=== PATIENT | male | born 1945 | race Caucasian/White ===

== ENCOUNTER → 2023-07-22 15:07 | Outpatient (REF) | payer MEDICARE, BC, SELFPAY ==
[2023-07-22 15:50] LABS: INR 4.71; PT 44.5 Sec (11.4-14.6)
== END ==
LOC: REG 15:07
PROVIDERS: ATTENDING PHYSICIAN Internal Medicine; FAMILY PHYSICIAN Family Medicine
DX: I48.0 Paroxysmal atrial fibrillation (principal)
CPT/HCPCS: 36415; 85610

== ENCOUNTER → 2023-10-18 12:04 | Outpatient (REF) | payer MEDICARE, BC, SELFPAY ==
[2023-10-18 13:50] LABS: INR 1.72
[2023-10-18 14:16] LABS: Protein/creatinine Ratio 0.5; Urine Protein 89 mg/dl
[2023-10-18 14:30] LABS: Albumin 4.2 g/dl (3.5-5.0); Blood Urea Nitrogen 48 mg/dl (9-20); Calcium 9.7 mg/dl (8.4-10.2); Carbon Dioxide 25 mmol/L (22-30); Chloride 104 mmol/L (98-107); Glucose 94 mg/dl (70-99); Phosphorus 3.1 mg/dl (2.5-4.5); Potassium 4.8 mmol/L (3.5-5.1); Sodium 137 mmol/L (135-145); eGFR 36.11
== END ==
LOC: REG 12:04
PROVIDERS: ATTENDING PHYSICIAN Internal Medicine; FAMILY PHYSICIAN Family Medicine; OTHER PHYSICIAN Internal Medicine
DX: I48.0 Paroxysmal atrial fibrillation (principal); I10 Essential (primary) hypertension; N17.9 Acute kidney failure, unspecified; E78.2 Mixed hyperlipidemia
CPT/HCPCS: 36415; 80069; 82570; 84156; 85610

== ENCOUNTER → 2023-10-29 12:46 | Outpatient (REF) | payer MEDICARE, BC, SELFPAY ==
[2023-10-29 14:41] LABS: INR 3.13; PT 32.1 Sec (11.4-14.6)
[2023-10-29 14:49] LABS: Albumin 4.3 g/dl (3.5-5.0); Blood Urea Nitrogen 35 mg/dl (9-20); Calcium 9.8 mg/dl (8.4-10.2); Carbon Dioxide 25 mmol/L (22-30); Chloride 106 mmol/L (98-107); Glucose 94 mg/dl (70-99); Phosphorus 3.4 mg/dl (2.5-4.5); Potassium 4.7 mmol/L (3.5-5.1); Sodium 142 mmol/L (135-145); eGFR 44.38
[2023-10-29 15:55] LABS: Protein/creatinine Ratio 0.5; Urine Protein 68 mg/dl
== END ==
LOC: RAD 12:46
PROVIDERS: ATTENDING PHYSICIAN Physician Assistant; OTHER PHYSICIAN Internal Medicine
DX: I73.9 Peripheral vascular disease, unspecified (principal); I65.22 Occlusion and stenosis of left carotid artery; I48.0 Paroxysmal atrial fibrillation; I10 Essential (primary) hypertension; E78.2 Mixed hyperlipidemia; E78.5 Hyperlipidemia, unspecified; N17.9 Acute kidney failure, unspecified; I21.3 ST elevation (STEMI) myocardial infarction of unspecified site
CPT/HCPCS: 36415; 80069; 82570; 82784; 83521; 84155; 84156; 84165; 85610; 86334; 93880; 93922; 93925

== ENCOUNTER → 2023-11-04 11:48 | Outpatient (REF) | payer MEDICARE, BC, SELFPAY ==
[2023-11-04 12:48] LABS: INR 4.55; PT 43.3 Sec (11.4-14.6)
== END ==
LOC: RAD 11:48
PROVIDERS: ATTENDING PHYSICIAN Internal Medicine; FAMILY PHYSICIAN Family Medicine
DX: I48.0 Paroxysmal atrial fibrillation (principal)
CPT/HCPCS: 36415; 85610

== ENCOUNTER → 2023-12-25 12:16 | Outpatient (REF) | payer MEDICARE, BC, SELFPAY ==
[2023-12-25 13:02] LABS: % Basophils 0.8 % (0-2); % Eosinophils 3.5 % (0-6); % Immature Granulocytes 0.3 % (0-0.5); % Lymphocytes 32.2 % (20.5-51.1); % Monocytes 11.8 % (1.7-9.3); % Neutrophils 51.4 % (42.2-75.2); Absolute Eosinophils 0.1 10^3/uL (0-0.7); Absolute Lymphocytes 1.3 10^3/uL (1.2-3.4); Absolute Monocytes 0.5 10^3/uL (0.1-0.6); Hematocrit 38.4 % (39.0-52.0); Hemoglobin 13.2 g/dL (13.0-18.0); Mean Corp Hgb Conc. 34.4 g/dL (33.0-37.0); Mean Corpuscular Hgb 31.3 pg (27.0-31.0); Mean Platelet Volume 10.8 fL (7.4-10.4); Nucleated Red Blood Cells % 0 % (-); Platelet Count 135 10^3/uL (130-400); Red Blood Cell Count 4.22 10^6/uL (4.70-6.10); Red Cell Dist. Width 13.1 % (11.5-14.5)
[2023-12-25 13:07] LABS: INR 1.68
[2023-12-25 13:13] LABS: ALT (SGPT) 20 U/L (0-50); AST (SGOT) 37 U/L (17-59); Albumin 4.2 g/dl (3.5-5.0); Alkaline Phosphatase 92 U/L (38-126); Blood Urea Nitrogen 43 mg/dl (9-20); Calcium 9.5 mg/dl (8.4-10.2); Carbon Dioxide 25 mmol/L (22-30); Chloride 107 mmol/L (98-107); Glucose 150 mg/dl (70-99); Potassium 4.4 mmol/L (3.5-5.1); Sodium 142 mmol/L (135-145); Total Bilirubin 0.7 mg/dl (0.2-1.3); Total Protein 7.2 g/dl (6.3-8.2); eGFR 33.95
[2023-12-25 14:10] LABS: Glycohemoglobin (HgbA1c) 6.4 % (4.0-5.6)
== END ==
LOC: RAD 12:16
PROVIDERS: ATTENDING PHYSICIAN Internal Medicine; FAMILY PHYSICIAN Family Medicine
DX: M19.072 Primary osteoarthritis, left ankle and foot (principal); M14.672 Charcot's joint, left ankle and foot; N18.32 Chronic kidney disease, stage 3b; E11.42 Type 2 diabetes mellitus with diabetic polyneuropathy; I10 Essential (primary) hypertension; I48.0 Paroxysmal atrial fibrillation
CPT/HCPCS: 36415; 73610; 73630; 80053; 83036; 85025; 85610

== ENCOUNTER → 2024-01-03 10:19 | Outpatient (REF) | payer MEDICARE, BC, SELFPAY ==
[2024-01-03 13:09] LABS: INR 2.11; PT 23.5 Sec (11.4-14.6)
== END ==
LOC: REG 10:19
PROVIDERS: ATTENDING PHYSICIAN Internal Medicine; FAMILY PHYSICIAN Family Medicine
DX: I48.0 Paroxysmal atrial fibrillation (principal)
CPT/HCPCS: 36415; 85610

== ENCOUNTER → 2024-01-14 10:55 | Outpatient (REF) | payer MEDICARE, BC, SELFPAY ==
[2024-01-14 12:02] LABS: Urine Albumin 1+ (Neg - Trace); Urine Bilirubin Negative (Negative); Urine Character Clear (Clear); Urine Color Yellow; Urine Glucose Negative (Negative); Urine Ketone Trace (Negative); Urine Leukocyte 2+ (Negative); Urine Nitrite Negative (Negative); Urine Occult Blood Trace (Negative); Urine Urobilinogen Negative (Neg - 1+)
[2024-01-14 12:44] LABS: Protein/creatinine Ratio 0.2; Urine Protein 37 mg/dl; Urine Sodium 137 mmol/L (30-90)
[2024-01-14 13:10] LABS: Urine Mucus Few
[2024-01-14 13:12] LABS: Urine Bacteria Few (Negative); Urine Red Blood Cell 0-2 /HPF (0-2)
[2024-01-14 14:04] LABS: INR 4.18; PT 40.5 Sec (11.4-14.6)
== END ==
LOC: REG 10:55
PROVIDERS: ATTENDING PHYSICIAN Internal Medicine; FAMILY PHYSICIAN Family Medicine; REFERRING PHYSICIAN Internal Medicine
DX: I48.0 Paroxysmal atrial fibrillation (principal); I10 Essential (primary) hypertension; E78.5 Hyperlipidemia, unspecified; E78.2 Mixed hyperlipidemia
CPT/HCPCS: 36415; 81003; 81015; 82570; 84156; 84300; 85610

== ENCOUNTER → 2024-01-21 12:07 | Outpatient (REF) | payer MEDICARE, BC, SELFPAY ==
[2024-01-21 16:18] LABS: INR 2.88; PT 30.1 Sec (11.4-14.6)
== END ==
LOC: REG 12:07
PROVIDERS: ATTENDING PHYSICIAN Internal Medicine; FAMILY PHYSICIAN Family Medicine
DX: I48.0 Paroxysmal atrial fibrillation (principal)
CPT/HCPCS: 36415; 85610

== ENCOUNTER → 2024-03-02 14:35 | Outpatient (REF) | payer MEDICARE, BC, SELFPAY ==
[2024-03-02 15:22] LABS: INR 2.89; PT 30.2 Sec (11.4-14.6)
== END ==
LOC: REG 14:35
PROVIDERS: ATTENDING PHYSICIAN Internal Medicine; FAMILY PHYSICIAN Family Medicine
DX: I48.0 Paroxysmal atrial fibrillation (principal)
CPT/HCPCS: 36415; 85610

== ENCOUNTER → 2024-03-16 16:32 | Outpatient (REF) | payer MEDICARE, BC, SELFPAY ==
[2024-03-16 17:53] LABS: INR 3.93; PT 38.5 Sec (11.4-14.6)
== END ==
LOC: REG 16:32
PROVIDERS: ATTENDING PHYSICIAN Internal Medicine
DX: I48.0 Paroxysmal atrial fibrillation (principal)
CPT/HCPCS: 36415; 85610

== ENCOUNTER → 2024-03-30 14:22 | Outpatient (REF) | payer MEDICARE, BC, SELFPAY ==
[2024-03-30 15:06] LABS: % Basophils 0.8 % (0-2); % Eosinophils 4.6 % (0-6); % Immature Granulocytes 0.5 % (0-0.5); % Lymphocytes 30.4 % (20.5-51.1); % Monocytes 11.9 % (1.7-9.3); % Neutrophils 51.8 % (42.2-75.2); Absolute Eosinophils 0.2 10^3/uL (0-0.7); Absolute Lymphocytes 1.2 10^3/uL (1.2-3.4); Absolute Monocytes 0.5 10^3/uL (0.1-0.6); Absolute Neutrophils 2.1 10^3/uL (1.4-6.5); Hematocrit 38.3 % (39.0-52.0); Hemoglobin 12.9 g/dL (13.0-18.0); Mean Corp Hgb Conc. 33.7 g/dL (33.0-37.0); Mean Corpuscular Hgb 30.5 pg (27.0-31.0); Mean Corpuscular Volume 90.5 fL (80.0-94.0); Mean Platelet Volume 10.8 fL (7.4-10.4); Nucleated Red Blood Cells % 0 % (-); Platelet Count 141 10^3/uL (130-400); Red Blood Cell Count 4.23 10^6/uL (4.70-6.10); Red Cell Dist. Width 13.8 % (11.5-14.5)
[2024-03-30 15:13] LABS: INR 2.12; PT 23.6 Sec (11.4-14.6)
[2024-03-30 15:25] LABS: ALT (SGPT) 22 U/L (0-50); AST (SGOT) 33 U/L (17-59); Albumin 4.4 g/dl (3.5-5.0); Alkaline Phosphatase 96 U/L (38-126); Blood Urea Nitrogen 43 mg/dl (9-20); Calcium 9.7 mg/dl (8.4-10.2); Carbon Dioxide 26 mmol/L (22-30); Chloride 103 mmol/L (98-107); Glucose 142 mg/dl (70-99); Potassium 4.5 mmol/L (3.5-5.1); Sodium 145 mmol/L (135-145); Total Bilirubin 0.6 mg/dl (0.2-1.3); Total Protein 7.7 g/dl (6.3-8.2); eGFR 41.26
[2024-04-01 22:14] LABS: Beta-2-Microglobulin 4.8 mg/L (<=3.0)
== END ==
LOC: REG 14:22
PROVIDERS: ATTENDING PHYSICIAN Internal Medicine Hematology & Oncology; FAMILY PHYSICIAN Internal Medicine
DX: D47.2 Monoclonal gammopathy (principal); I48.0 Paroxysmal atrial fibrillation
CPT/HCPCS: 36415; 80053; 82232; 82784; 83521; 84155; 84156; 84165; 85025; 85610; 86334; 86335

== ENCOUNTER → 2024-04-14 15:10 | Outpatient (REF) | payer MEDICARE, BC, SELFPAY ==
[2024-04-14 16:45] LABS: INR 2.42; PT 26.2 Sec (11.4-14.6)
== END ==
LOC: REG 15:10
PROVIDERS: ATTENDING PHYSICIAN Internal Medicine; FAMILY PHYSICIAN Family Medicine
DX: I48.0 Paroxysmal atrial fibrillation (principal)
CPT/HCPCS: 36415; 85610

== ENCOUNTER → 2024-04-21 13:34 | Outpatient (REF) | payer MEDICARE, BC, SELFPAY ==
[2024-04-21 14:35] LABS: INR 3.05; PT 31.5 Sec (11.4-14.6)
== END ==
LOC: REG 13:34
PROVIDERS: ATTENDING PHYSICIAN Internal Medicine; FAMILY PHYSICIAN Family Medicine
DX: I48.0 Paroxysmal atrial fibrillation (principal)
CPT/HCPCS: 36415; 85610

== ENCOUNTER → 2024-04-30 16:15 | Outpatient (REF) | payer MEDICARE, BC, SELFPAY ==
[2024-04-30 17:56] LABS: PT 27.4 Sec (11.4-14.6)
== END ==
LOC: REG 16:15
PROVIDERS: ATTENDING PHYSICIAN Internal Medicine; FAMILY PHYSICIAN Family Medicine
DX: I48.0 Paroxysmal atrial fibrillation (principal)
CPT/HCPCS: 36415; 85610

== ENCOUNTER 2024-06-04 15:25 | Emergency (ER) | payer MEDICARE, BC, SELFPAY ==
[2024-06-04 15:54] VITALS: BP 156/80
--- NOTE | 2024-06-04 16:07 | ED.GENMED ---
ED Provider Triage
<Halina Prabhakar PA-C - Last Filed: 06/04/24 18:36>
-
Patient seen by provider in Triage?: Seen in Triage
Attestation: A medical screening examination has been initiated by a qualified medical provider. Based on the assessment performed at this time, it has been determined that an emergent medical condition may exist and the patient has been informed
that further medical evaluation and possible additional diagnostic testing may be needed.
HPI: 79yoM started having vomiting and headache last night. Now only able to see shadows from L eye, was seeing okay out of this eye yesterday. Started to R eye visual disturbance Saturday. Seen by eye doctor 2 days ago and told he had a hemorrhage.
Scheduled to see retinal specialist tomorrow. Currently on Coumadin.
GENERAL: Alert , in no apparent distress
EYE: No visual abnormalities.
NECK: Trachea midline
ENT: No visible abnormalities.
LUNGS: No acute respiratory distress
NEUROLOGICAL: Alert and oriented
SKIN: Skin intact. No visible changes.
MUSCULOSKELETAL: Moving extremities normally
PSYCH: Normal and appropriate interaction.
This is a medical evaluation conducted in person to initiate diagnostic evaluation and provide initial therapeutics. Please see further documentation by the treating clinician.
Patient appears uncomfortable. CBC, CMP, coags, and CT head ordered. Patient brought immediately to exam room.
History of Present Illness
<Halina Prabhakar PA-C - Last Filed: 06/04/24 18:36>
General
Chief Complaint: Visual Problem
Time Seen by Provider: 06/04/24 16:18
<Alok Montiel DO - Last Filed: 06/04/24 19:44>
General
Source: patient and spouse
History of Present Illness
History of Present Illness:
79-year-old male presents to the emergency room complaining of almost complete loss of vision in both eyes. Patient states that he began having difficulty seeing from his right eye last week. He was found to have hemorrhage' of the right eye. He
was seen by his brush filler hand who started him on some drops and instructed him to return to the office in a few days which would be tomorrow. At that time he felt like his left eye vision was at its baseline. Patient began having decreased
vision in his left eye today. He noted this when he awoke from sleep. Vision has not improved. He has developed nausea and vomiting. He denies any trauma to the left eye. Patient states he does have history of glaucoma which is primarily
affected his left eye.
Past History
<Halina Prabhakar PA-C - Last Filed: 06/04/24 18:36>
Past History
ED Past Medical History: Arrthythmia, CAD, Hypercholesterolemia, IDDM and [place]
ED Past Surgical History: Cardiac (CABG)
Social History
Tobacco: Non-smoker
Alcohol: Occasional
Drug: None
Personal:
Living: with family
Phy Exam
<Alok Montiel DO - Last Filed: 06/04/24 19:44>
Physical Exam
Physical Exam:
General: Awake, Alert, Oriented X3. Patient appears uncomfortable
Vitals: Moderately hypertensive
Head: Atraumatic
Eyes: Right eye shows pupils to be about 3 mm and slightly reactive. There is a hyphema noted in the anterior chamber with the remaining of the anterior chamber appearing cloudy. Intraocular pressure by Keith-Pen noted to be 54. Confirmed with
second set of measurements. Left eye exam shows a very cloudy anterior chamber with a sluggishly reactive pupil. Extra movement intact both eyes.
Throat: Airway intact, no exudates
Neck: Trachea midline
Lungs: Clear and equal b/l
Heart: Regular rate, no murmurs
Neuro: Nonfocal
Skin: Warm, dry, no rash
Extremities: pulses equal b/l, no edema
Course
<Halina Prabhakar PA-C - Last Filed: 06/04/24 18:36>
Orders/Labs/Results
Orders:
Orders
06/04/24 16:24
Complete Blood Count/With Diff Urgent
Comprehensive Metabolic Panel Urgent
Prothrombin Time Urgent
06/04/24 17:09
Acetazolamide [Diamox] 500 mg PO NOW STA
06/04/24 17:12
Ondansetron Injectable [Zofran] 4 mg IV NOW STA
Abnormal Lab Results
06/04/24
16:24
RBC 4.26 L 10^6/uL
(4.70-6.10)
Hct 38.9 L %
(39.0-52.0)
MCH 31.2 H pg
(27.0-31.0)
MPV 10.5 H fL
(7.4-10.4)
Absolute Lymphs (auto) 0.7 L 10^3/uL
(1.2-3.4)
Immature Gran % 0.8 H %
(0-0.5)
Neutrophils % 78.1 H %
(42.2-75.2)
Lymphocytes % 14.5 L %
(20.5-51.1)
PT 21.0 H Sec
(11.4-14.6)
BUN 37 H mg/dl
(9-20)
Creatinine 1.4 H mg/dL
(0.7-1.3)
Glucose 168 H mg/dl
(70-99)
06/04/24 16:24
06/04/24 16:24
Vital Signs
Initial and Last Documented VS:
Initial Vital Signs
Pulse Resp BP Pulse Ox
63 20 156/80 100
06/04/24 15:54 06/04/24 15:54 06/04/24 15:54 06/04/24 15:54
Last Documented Vital Signs
Pulse Resp BP Pulse Ox
79 23 172/75 98
06/04/24 17:00 06/04/24 17:00 06/04/24 16:19 06/04/24 17:00
<Alok Montiel DO - Last Filed: 06/04/24 19:44>
Orders/Labs/Results
Orders:
Orders
06/04/24 16:24
Complete Blood Count/With Diff Urgent
Comprehensive Metabolic Panel Urgent
Prothrombin Time Urgent
06/04/24 17:09
Acetazolamide [Diamox] 500 mg PO NOW STA
06/04/24 17:12
Ondansetron Injectable [Zofran] 4 mg IV NOW STA
Abnormal Lab Results
06/04/24
16:24
RBC 4.26 L 10^6/uL
(4.70-6.10)
Hct 38.9 L %
(39.0-52.0)
MCH 31.2 H pg
(27.0-31.0)
MPV 10.5 H fL
(7.4-10.4)
Absolute Lymphs (auto) 0.7 L 10^3/uL
(1.2-3.4)
Immature Gran % 0.8 H %
(0-0.5)
Neutrophils % 78.1 H %
(42.2-75.2)
Lymphocytes % 14.5 L %
(20.5-51.1)
PT 21.0 H Sec
(11.4-14.6)
BUN 37 H mg/dl
(9-20)
Creatinine 1.4 H mg/dL
(0.7-1.3)
Glucose 168 H mg/dl
(70-99)
06/04/24 16:24
06/04/24 16:24
Vital Signs
Initial and Last Documented VS:
Initial Vital Signs
Pulse Resp BP Pulse Ox
63 20 156/80 100
06/04/24 15:54 06/04/24 15:54 06/04/24 15:54 06/04/24 15:54
Last Documented Vital Signs
Pulse Resp BP Pulse Ox
79 23 172/75 98
06/04/24 17:00 06/04/24 17:00 06/04/24 16:19 06/04/24 17:00
<Alok Montiel, DO - Last Filed: 06/04/24 19:44>
MDM/Problems Addressed
Differential Diagnosis Includes:
Bilateral vitreous hemorrhage, acute glaucoma, viral conjunctivitis
MDM/Problems Addressed:
Patient presents with significant vision loss, nausea and vomiting. Hyphema noted on the right eye. I do not appreciate a hyphema of the left eye. Both anterior chambers have significant cells and flare. Intraocular pressures are markedly
elevated. Immediately contacted Dr. Courtney who is on-call for ophthalmology. He has weeks and the patient right to his office where he is better resources to handle this. Patient's will take him directly to the ophthalmology office. I was
planning to give the patient a dose of Diamox with Dr. Fierro has the medication in the office and would prefer we immediately discharge him to be seen in his office.
<Alok Montiel, DO - Last Filed: 06/04/24 19:44>
*Pulse Oximetry
Patient hypoxic: no
*Critical Care Note
Total Time (30-74mins, 75-104mins- exclusive of procedures): 30 min
comment:
Critical care statement: A total of 30 minutes of critical care time was provided for this patient. This includes management of unstable vital signs, evaluation of the patient at bedside, reviewing the patient's pertinent medical records, discussion
with consultants, review of old EKGs and review of pertinent medical records. This time with separate from time utilized to perform the aforementioned documented procedures
ED Attending Note
<Halina Prabhakar PA-C - Last Filed: 06/04/24 18:36>
-
Portions of this chart may have been created with voice recognition software.� Occasional wrong word or��sound alike� substitutions may have occurred due to the inherent limitations of voice recognition software.
Discharge Plan
Departure
Patient Disposition: Home (Routine Discharge)
Patient with high blood pressure during this ER visit?: Yes
Condition: Fair
Discharge Problem:
Acute glaucoma of both eyes
Instructions: Angle-closure glaucoma, BLOOD PRESSURE
Prescriptions:
No Action
metoprolol succinate 50 MG tablet extended release 24 hr
50 mg PO HS
atorvastatin [Lipitor] 40 MG tablet
40 mg PO HS
warfarin [Jantoven] 5 MG tablet
5 mg PO SUMOTUWEFRSA
Patient Comments:
HS
torsemide 20 mg Tablet
20 mg PO DAILY
warfarin 2.5 mg Tablet
2.5 mg PO TH
aspirin 81 mg Tablet,Delayed Release (Dr/Ec)
81 mg PO DAILY
potassium chloride 20 mEq Tablet Extended Release
20 meq PO DAILY
Referrals:
Sarabjit Fierro MD [Active] -
Madi Hanks MD [Family Provider] -
Activity Restrictions/Additional Instructions:
Go directly to Dr. Fierro's office.
Interventions
Interventions:
*Risk Screen - Suicide Last Done: 06/04/24 15:59
*General Assessment Last Done: 06/04/24 15:59
*Neglect/Abuse Screening Last Done: 06/04/24 15:59
*ED COVID-19 Vaccine History Last Done: 06/04/24 15:59
*Nursing Disposition Last Done: 06/04/24 17:31
ED- Neurological Assessment Last Done: 06/04/24 17:30
ED-EENT Assessment Last Done: 06/04/24 17:30
Discharge Date and Time
Discharge Date/Time: 06/04/24 17:31
Print Language: INDONESIAN
[2024-06-04 16:15] VITALS: BMI 24.2
[2024-06-04 16:19] VITALS: BP 172/75
[2024-06-04 16:48] LABS: % Basophils 0.2 % (0-2); % Immature Granulocytes 0.8 % (0-0.5); % Lymphocytes 14.5 % (20.5-51.1); % Monocytes 6.4 % (1.7-9.3); % Neutrophils 78.1 % (42.2-75.2); Absolute Lymphocytes 0.7 10^3/uL (1.2-3.4); Absolute Monocytes 0.3 10^3/uL (0.1-0.6); Hematocrit 38.9 % (39.0-52.0); Hemoglobin 13.3 g/dL (13.0-18.0); INR 1.76; Mean Corp Hgb Conc. 34.2 g/dL (33.0-37.0); Mean Corpuscular Hgb 31.2 pg (27.0-31.0); Mean Corpuscular Volume 91.3 fL (80.0-94.0); Mean Platelet Volume 10.5 fL (7.4-10.4); Nucleated Red Blood Cells % 0 % (-); Platelet Count 140 10^3/uL (130-400); Red Blood Cell Count 4.26 10^6/uL (4.70-6.10); Red Cell Dist. Width 13.2 % (11.5-14.5); White Blood Cell Count 5.1 10^3/uL (4.8-10.8)
[2024-06-04 16:51] LABS: ALT (SGPT) 25 U/L (0-50); AST (SGOT) 37 U/L (17-59); Albumin 4.5 g/dl (3.5-5.0); Alkaline Phosphatase 117 U/L (38-126); Blood Urea Nitrogen 37 mg/dl (9-20); Calcium 9.8 mg/dl (8.4-10.2); Carbon Dioxide 28 mmol/L (22-30); Chloride 99 mmol/L (98-107); Estimated Creatinine Clearance 50 ml/min; Glucose 168 mg/dl (70-99); Potassium 4.6 mmol/L (3.5-5.1); Sodium 136 mmol/L (135-145); Total Bilirubin 1.1 mg/dl (0.2-1.3); Total Protein 8.1 g/dl (6.3-8.2); eGFR 51.77
[2024-06-04] MEDS: ZOFRAN 4 MG IV (17:14)
== END 2024-06-04 17:31 | disposition home or self-care (01) ==
LOC: EMR 15:25
PROVIDERS: EMERGENCY PHYSICIAN Emergency Medicine; FAMILY PHYSICIAN Family Medicine
DX: H40.9 Unspecified glaucoma (principal); R11.2 Nausea with vomiting, unspecified; H54.3 Unqualified visual loss, both eyes; R51.9 Headache, unspecified; H21.01 Hyphema, right eye; E11.9 Type 2 diabetes mellitus without complications; I25.10 Atherosclerotic heart disease of native coronary artery without angina pectoris; E78.00 Pure hypercholesterolemia, unspecified; I25.2 Old myocardial infarction; Z95.1 Presence of aortocoronary bypass graft; Z79.4 Long term (current) use of insulin; Z79.01 Long term (current) use of anticoagulants
CPT/HCPCS: 99291; 96374; 80053; 85025; 85610

== ENCOUNTER → 2024-06-16 11:21 | Outpatient (REF) | payer MEDICARE, BC, SELFPAY ==
[2024-06-16 12:55] LABS: % Basophils 0.4 % (0-2); % Eosinophils 0.5 % (0-6); % Immature Granulocytes 0.7 % (0-0.5); % Lymphocytes 17.5 % (20.5-51.1); % Monocytes 7.9 % (1.7-9.3); Absolute Monocytes 0.4 10^3/uL (0.1-0.6); Absolute Neutrophils 4.1 10^3/uL (1.4-6.5); Hematocrit 41.8 % (39.0-52.0); Hemoglobin 14.2 g/dL (13.0-18.0); Mean Corpuscular Hgb 31.5 pg (27.0-31.0); Mean Corpuscular Volume 92.7 fL (80.0-94.0); Mean Platelet Volume 11.1 fL (7.4-10.4); Nucleated Red Blood Cells % 0 % (-); Platelet Count 135 10^3/uL (130-400); Red Blood Cell Count 4.51 10^6/uL (4.70-6.10); Red Cell Dist. Width 13.7 % (11.5-14.5); White Blood Cell Count 5.6 10^3/uL (4.8-10.8)
[2024-06-16 13:01] LABS: PT 23.1 Sec (11.4-14.6)
[2024-06-16 13:30] LABS: ALT (SGPT) 31 U/L (0-50); AST (SGOT) 29 U/L (17-59); Albumin 4.5 g/dl (3.5-5.0); Alkaline Phosphatase 95 U/L (38-126); Blood Urea Nitrogen 49 mg/dl (9-20); Calcium 9.8 mg/dl (8.4-10.2); Carbon Dioxide 18 mmol/L (22-30); Chloride 107 mmol/L (98-107); Glucose 138 mg/dl (70-99); HDL Cholesterol 51 mg/dl; LDL Cholesterol, Calculated 105 mg/dl; Potassium 4.4 mmol/L (3.5-5.1); Sodium 137 mmol/L (135-145); Total Bilirubin 0.7 mg/dl (0.2-1.3); Total Cholesterol 178 mg/dl (50-199); Total Protein 8.1 g/dl (6.3-8.2); Triglyceride 114 mg/dl (10-149); Very Low Density Lipoprotein 22 mg/dl (0-30)
[2024-06-16 13:50] LABS: Glycohemoglobin (HgbA1c) 6.4 % (4.0-5.6)
== END ==
LOC: REG 11:21
PROVIDERS: ATTENDING PHYSICIAN Internal Medicine; FAMILY PHYSICIAN Family Medicine
DX: I48.0 Paroxysmal atrial fibrillation (principal); I10 Essential (primary) hypertension; E78.2 Mixed hyperlipidemia; E11.42 Type 2 diabetes mellitus with diabetic polyneuropathy; Z12.11 Encounter for screening for malignant neoplasm of colon
CPT/HCPCS: 36415; 80053; 80061; 83036; 85025; 85610

== ENCOUNTER 2024-06-30 12:02 | Emergency (ER) | payer MEDICARE, BC, SELFPAY ==
[2024-06-30 12:14] VITALS: BP 115/65
--- NOTE | 2024-06-30 13:45 | ED.GENMED ---
History of Present Illness
<Anju Valadez PA-C - Last Filed: 06/30/24 20:46>
General
Chief Complaint: Skin Surface Trauma
Source: patient
Exam Limitations: none
Time Seen by Provider: 06/30/24 13:25
Nursing documentation reviewed up to this point in time: agreed with
History of Present Illness
History of Present Illness:
Patient is a 79M on Coumadin presenting with laceration to left owens. Patient states that he was moving things around in his basement about 1 hr [employer] when a large piece of wood fell onto his left owens. Patient unable to stop bleeding at home. No
other associated injuries. Patient having no difficulties ambulating on left leg. 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
Patient did contact his PCP who has last tetanus booster documented as 2017.
Past History
<Anju Valadez PA-C - Last Filed: 06/30/24 20:46>
Past History
ED Past Medical History: Arrthythmia, CAD, Hypercholesterolemia, IDDM and [place]
ED Past Surgical History: Cardiac (CABG)
Social History
Tobacco: Non-smoker
Alcohol: Occasional
Drug: None
Personal:
Living: with family
Review of Systems
<Anju Valadez PA-C - Last Filed: 06/30/24 20:46>
Review of Systems
Allergies reviewed?: Yes
All Other Systems: ROS reviewed and negative except as documented in HPI and ROS
Phy Exam
<Anju Valadez PA-C - Last Filed: 06/30/24 20:46>
Physical Exam
Physical Exam:
Vitals: Patient's vital signs are stable. Afebrile
General: Patient is well appearing, no acute distress
Skin: Approximately 4 cm curved laceration to left lower leg with superficial flap. Small V-shaped skin tear just medial to laceration
Head: Normocephalic, atraumatic
Throat: Protecting airway
Neck: Normal ROM, no cervical spine tenderness
Cardiac: Regular rate
Pulm: No apparent respiratory distress
Abdomen: Nondistended
Extremities: No evidence of cyanosis or edema. Left lower extremity neurovascularly intact.
Neuro: Grossly intact
Psychiatric: Normal affect.
Course
<Anju Valadez PA-C - Last Filed: 06/30/24 20:46>
Orders/Labs/Results
Orders:
Orders
06/30/24 13:53
Tetanus/Diphth/Acelpertussis [Adacel] 0.5 ml IM .ONCE ONE
06/30/24 14:02
PT/INR [Prothrombin Time] Urgent
06/30/24 14:45
Cephalexin Monohydrate [Keflex] 500 mg PO NOW STA
Abnormal Lab Results
06/30/24
14:02
PT 21.8 H Sec
(11.4-14.6)
Vital Signs
Initial and Last Documented VS:
Initial Vital Signs
Temp Pulse Resp BP Pulse Ox
97.6 F 71 20 115/65 100
06/30/24 12:14 06/30/24 12:14 06/30/24 12:14 06/30/24 12:14 06/30/24 12:14
Last Documented Vital Signs
Temp Pulse Resp BP Pulse Ox
97.6 F 71 20 115/65 100
06/30/24 12:14 06/30/24 12:14 06/30/24 12:14 06/30/24 12:14 06/30/24 12:14
<Felipe Monreal DO - Last Filed: 06/30/24 14:14>
Orders/Labs/Results
Orders:
Orders
06/30/24 13:53
Tetanus/Diphth/Acelpertussis [Adacel] 0.5 ml IM .ONCE ONE
06/30/24 14:02
PT/INR [Prothrombin Time] Urgent
06/30/24 14:45
Cephalexin Monohydrate [Keflex] 500 mg PO NOW STA
Abnormal Lab Results
06/30/24
14:02
PT 21.8 H Sec
(11.4-14.6)
Vital Signs
Initial and Last Documented VS:
Initial Vital Signs
Temp Pulse Resp BP Pulse Ox
97.6 F 71 20 115/65 100
06/30/24 12:14 06/30/24 12:14 06/30/24 12:14 06/30/24 12:14 06/30/24 12:14
Last Documented Vital Signs
Temp Pulse Resp BP Pulse Ox
97.6 F 71 20 115/65 100
06/30/24 12:14 06/30/24 12:14 06/30/24 12:14 06/30/24 12:14 06/30/24 12:14
Procedures
<Anju Valadez PA-C - Last Filed: 06/30/24 20:46>
Laceration Closure
Left Lower Leg:
Status of Wound: clean
Size of Wound in cm: 4
Description of Wound Edges: flap-well vascularized
Preparation: cleaned with saline
Anesthesia: 1% Lidocaine with epi
Revision/Debridement: routine- no revision
Wound exploration: explored to base- no FB
Type of Closure: single layer closure, interrupted sutures (6) and other (steri strips)
Skin Closure Material: 4-0 nylon
Number of sutures: 6
Additional information:
Small skin tear just medial to laceration closed with Steri-Strips
<Anju Valadez PA-C - Last Filed: 06/30/24 20:46>
MDM/Problems Addressed
Differential Diagnosis Includes:
Not limited to: laceration, skin tear, etc
MDM/Problems Addressed:
79-year-old male on Coumadin presenting with laceration/skin tear to left lower leg occurring just prior to arrival. No other associated injuries. Patient has stable vital signs. He is afebrile. Physical exam as above. Laceration to left leg
thoroughly irrigated with normal saline. Wound anesthetized with 1% lidocaine with epinephrine. Lateral aspect/deeper portion of wound closed with 6 simple interrupted 4-0 nylon sutures with great skin approximation. Medial aspect of wound
superficial skin flap unable to withstand sutures. Steri-Strips were placed to best approximate skin edges. Small skin tear just medially to laceration closed with Steri-Strips, as well. Hemostasis obtained. A pressure bandage was placed over
wound. Tdap updated. Given location of wound and poor vascularity�will have patient follow closely with wound care center. Very close return precautions discussed with patient including significant bleeding unable to control at home, any signs of
infection.
Update: INR of 1.88. Patient aware of this and will follow-up with prescribing provider for possible adjustments.
Chronic conditions affecting care:
Atrial fibrillation on coumadin
Acute Exacerbation and/or Progression of Chronic Illness:
N/A
<Anju Valadez PA-C - Last Filed: 06/30/24 20:46>
*Pulse Oximetry
Patient hypoxic: no
*EKG
Interpreted by ED Provider?: NA
*Bobj Developer Interpretation
Rate: Bobj Developer- N/A
*Critical Care Note
Total Time (30-74mins, 75-104mins- exclusive of procedures): Not Applicable
Data Reviewed
Review of Other/Old Records Reveals: Labs
ED Attending Note
<Anju Valadez PA-C - Last Filed: 06/30/24 20:46>
-
Portions of this chart may have been created with voice recognition software.� Occasional wrong word or��sound alike� substitutions may have occurred due to the inherent limitations of voice recognition software.
<Felipe Monreal, DO - Last Filed: 06/30/24 14:14>
ED Attending Note
Patient seen and examined by attending physician: Yes
I performed a history and physical exam of patient and discussed management with resident, I reviewed resident's note and agree with documented findings and plan of care.: Yes
ED Attending Note:
I reviewed and agree with history and treatment plan by Anju Fletcher. My exam revealed laceration left lower leg, superficial skin flap. Will attempt closure with suture and Steri-Strips.
Discharge Plan
Departure
Patient Disposition: Home (Routine Discharge)
Date of Disposition: 06/30/24
Time of Disposition: 14:45
Patient with high blood pressure during this ER visit?: No
Condition: Good
Covid-19: Not Applicable
Discharge Problem:
Laceration of left lower extremity, Skin tear of left lower leg without complication
Instructions: Wound Care (DC), Laceration Repair With Stitches (DC), [facility] for Wound Healing-Wounds
Prescriptions:
New
cephalexin 500 mg capsule
500 mg PO QID 5 Days Qty: 20 0RF
No Action
metoprolol succinate 50 MG tablet extended release 24 hr
50 mg PO HS
atorvastatin [Lipitor] 40 MG tablet
40 mg PO HS
warfarin [Jantoven] 5 MG tablet
5 mg PO SUMOTUWEFRSA
Patient Comments:
HS
torsemide 20 mg Tablet
20 mg PO DAILY
warfarin 2.5 mg Tablet
2.5 mg PO TH
aspirin 81 mg Tablet,Delayed Release (Dr/Ec)
81 mg PO DAILY
potassium chloride 20 mEq Tablet Extended Release
20 meq PO DAILY
Referrals:
Madi Hanks MD [Family Provider] - Follow up in 1 week
Activity Restrictions/Additional Instructions:
RETURN TO THE EMERGENCY DEPARTMENT WITH ANY BLEEDING THAT WILL NOT STOP AT HOME OR ANY SIGNS OF INFECTION INCLUDING FEVER/CHILLS, WORSENING REDNESS/PAIN AROUND WOUND, RED STREAKING AWAY FROM WOUND, PUS DRAINAGE FROM WOUND, WORSENING IN CURRENT
SYMTPOMS, OR ANY OTHER CONCERNS
-As discussed - your wound was closed with 6 stitches and steri-strips. You will need to have sutures removed in 10-14 days. This can be done with wound care center, primary care, urgent care, or emergency department. You should keep current bandage
on for 24-48 hours. Then remove, wash gently with soap and water, and keep covered. Keep wound clean and dry.
-Follow up with wound care for further management of healing wound.
-Take antibiotics as directed to prevent infection
Monitor your symptoms closely and return to the emergency department with any acute worsening/new symptoms or any signs of infection
Interventions
Interventions:
*Risk Screen - Suicide Last Done: 06/30/24 12:14
*General Assessment Last Done: 06/30/24 12:14
*Neglect/Abuse Screening Last Done: 06/30/24 12:14
*Nursing Disposition Last Done: 06/30/24 15:17
ED-Skin Assessment Last Done: 06/30/24 13:25
Discharge Date and Time
Discharge Date/Time: 06/30/24 15:18
Print Language: BELARUSIAN
[2024-06-30] MEDS: ADACEL 0.5 ML IM (14:08)
[2024-06-30 14:33] LABS: INR 1.88; PT 21.8 Sec (11.4-14.6)
[2024-06-30] MEDS: KEFLEX 500 MG PO (14:59)
== END 2024-06-30 15:18 | disposition home or self-care (01) ==
LOC: EMR 12:02
PROVIDERS: Physician Assistant; EMERGENCY PHYSICIAN Emergency Medicine; FAMILY PHYSICIAN Family Medicine
DX: S81.812A Laceration without foreign body, left lower leg, initial encounter (principal); W20.8XXA Other cause of strike by thrown, projected or falling object, initial encounter; Z23 Encounter for immunization; E11.40 Type 2 diabetes mellitus with diabetic neuropathy, unspecified; I48.91 Unspecified atrial fibrillation; I25.10 Atherosclerotic heart disease of native coronary artery without angina pectoris; E78.00 Pure hypercholesterolemia, unspecified; I25.2 Old myocardial infarction; Z79.01 Long term (current) use of anticoagulants; Z79.4 Long term (current) use of insulin; Z95.1 Presence of aortocoronary bypass graft
CPT/HCPCS: 12032; 99283; 90471; 85610; 90715

== ENCOUNTER → 2024-07-10 12:47 | Outpatient (REF) | payer MEDICARE, BC, SELFPAY | LOC: WOUND 12:47 | PROVIDERS: ATTENDING PHYSICIAN Surgery; FAMILY PHYSICIAN Family Medicine | DX: S85.142A Laceration of anterior tibial artery, left leg, initial encounter (principal); L97.321 Non-pressure chronic ulcer of left ankle limited to breakdown of skin; I73.9 Peripheral vascular disease, unspecified; E11.9 Type 2 diabetes mellitus without complications; I48.0 Paroxysmal atrial fibrillation; Z79.01 Long term (current) use of anticoagulants; X58.XXXA Exposure to other specified factors, initial encounter | CPT/HCPCS: 99203 ==

== ENCOUNTER → 2024-07-16 10:01 | Outpatient (REF) | payer MEDICARE, BC, SELFPAY | LOC: WOUND 10:01 | PROVIDERS: ATTENDING PHYSICIAN Surgery; FAMILY PHYSICIAN Family Medicine | DX: S85.1 Injury of tibial artery (principal); L97.321 Non-pressure chronic ulcer of left ankle limited to breakdown of skin; I73.9 Peripheral vascular disease, unspecified; E11.9 Type 2 diabetes mellitus without complications; Z79.01 Long term (current) use of anticoagulants; W20.8XXA Other cause of strike by thrown, projected or falling object, initial encounter; Y93.E9 Activity, other interior property and clothing maintenance | CPT/HCPCS: 99213 ==

== ENCOUNTER → 2024-07-23 10:48 | Outpatient (REF) | payer MEDICARE, BC, SELFPAY | LOC: WOUND 10:48 | PROVIDERS: ATTENDING PHYSICIAN Surgery; FAMILY PHYSICIAN Family Medicine | DX: S81.812A Laceration without foreign body, left lower leg, initial encounter (principal); L97.321 Non-pressure chronic ulcer of left ankle limited to breakdown of skin; I73.9 Peripheral vascular disease, unspecified; E11.9 Type 2 diabetes mellitus without complications; I48.0 Paroxysmal atrial fibrillation; Z79.01 Long term (current) use of anticoagulants; W20.8XXA Other cause of strike by thrown, projected or falling object, initial encounter | CPT/HCPCS: 11042 ==

== ENCOUNTER → 2024-07-31 11:35 | Outpatient (REF) | payer MEDICARE, BC, SELFPAY | LOC: WOUND 11:35 | PROVIDERS: ATTENDING PHYSICIAN Surgery; FAMILY PHYSICIAN Family Medicine | DX: S81.812A Laceration without foreign body, left lower leg, initial encounter (principal); L97.321 Non-pressure chronic ulcer of left ankle limited to breakdown of skin; E11.51 Type 2 diabetes mellitus with diabetic peripheral angiopathy without gangrene; W26.8XXA Contact with other sharp object(s), not elsewhere classified, initial encounter | CPT/HCPCS: 11042 ==

== ENCOUNTER → 2024-08-07 11:46 | Outpatient (REF) | payer MEDICARE, BC, SELFPAY | LOC: WOUND 11:46 | PROVIDERS: ATTENDING PHYSICIAN Surgery; FAMILY PHYSICIAN Family Medicine | DX: S81.812A Laceration without foreign body, left lower leg, initial encounter (principal); L97.321 Non-pressure chronic ulcer of left ankle limited to breakdown of skin; I73.9 Peripheral vascular disease, unspecified; E11.9 Type 2 diabetes mellitus without complications; I48.0 Paroxysmal atrial fibrillation; Z79.01 Long term (current) use of anticoagulants; X58.XXXA Exposure to other specified factors, initial encounter | CPT/HCPCS: 11042 ==

== ENCOUNTER → 2024-08-21 10:23 | Outpatient (REF) | payer MEDICARE, BC, SELFPAY | LOC: WOUND 10:23 | PROVIDERS: ATTENDING PHYSICIAN Surgery; FAMILY PHYSICIAN Family Medicine | DX: S81.812A Laceration without foreign body, left lower leg, initial encounter (principal); L97.321 Non-pressure chronic ulcer of left ankle limited to breakdown of skin; I73.9 Peripheral vascular disease, unspecified; E11.9 Type 2 diabetes mellitus without complications; I48.0 Paroxysmal atrial fibrillation; Z79.01 Long term (current) use of anticoagulants; W20.8XXA Other cause of strike by thrown, projected or falling object, initial encounter | CPT/HCPCS: 97597 ==

== ENCOUNTER → 2024-09-04 11:02 | Outpatient (REF) | payer MEDICARE, BC, SELFPAY | LOC: WOUND 11:02 | PROVIDERS: ATTENDING PHYSICIAN Surgery; FAMILY PHYSICIAN Family Medicine | DX: S81.812A Laceration without foreign body, left lower leg, initial encounter (principal); L97.321 Non-pressure chronic ulcer of left ankle limited to breakdown of skin; I73.9 Peripheral vascular disease, unspecified; E11.9 Type 2 diabetes mellitus without complications; I48.0 Paroxysmal atrial fibrillation; Z79.01 Long term (current) use of anticoagulants; X58.XXXA Exposure to other specified factors, initial encounter | CPT/HCPCS: 11042 ==

== ENCOUNTER → 2024-09-11 12:12 | Outpatient (REF) | payer MEDICARE, BC, SELFPAY ==
[2024-09-11 13:29] LABS: % Basophils 0.5 % (0-2); % Immature Granulocytes 0.5 % (0-0.5); % Lymphocytes 21.7 % (20.5-51.1); % Monocytes 11.3 % (1.7-9.3); Absolute Eosinophils 0.2 10^3/uL (0-0.7); Absolute Lymphocytes 0.9 10^3/uL (1.2-3.4); Absolute Monocytes 0.5 10^3/uL (0.1-0.6); Absolute Neutrophils 2.4 10^3/uL (1.4-6.5); Hematocrit 34.1 % (39.0-52.0); Hemoglobin 11.4 g/dL (13.0-18.0); Mean Corp Hgb Conc. 33.4 g/dL (33.0-37.0); Mean Corpuscular Hgb 30.9 pg (27.0-31.0); Mean Corpuscular Volume 92.4 fL (80.0-94.0); Nucleated Red Blood Cells % 0 % (-); Platelet Count 148 10^3/uL (130-400); Red Blood Cell Count 3.69 10^6/uL (4.70-6.10); Red Cell Dist. Width 12.9 % (11.5-14.5)
[2024-09-11 13:40] LABS: INR 3.52
[2024-09-11 14:23] LABS: Urine Protein 134 mg/dl (0-12)
[2024-09-11 14:38] LABS: ALT (SGPT) 17 U/L (0-50); AST (SGOT) 28 U/L (17-59); Albumin 4.3 g/dl (3.5-5.0); Alkaline Phosphatase 108 U/L (38-126); Blood Urea Nitrogen 41 mg/dl (9-20); Calcium 10.1 mg/dl (8.4-10.2); Carbon Dioxide 23 mmol/L (22-30); Chloride 106 mmol/L (98-107); Glucose 119 mg/dl (70-99); Phosphorus 2.9 mg/dl (2.5-4.5); Potassium 4.6 mmol/L (3.5-5.1); Sodium 142 mmol/L (135-145); Total Bilirubin 0.6 mg/dl (0.2-1.3); Total Protein 7.5 g/dl (6.3-8.2); eGFR 38.29
[2024-09-12 09:31] LABS: Intact PTH 58.3 pg/ml (13.6-85.8)
[2024-09-13 21:06] LABS: Beta-2-Microglobulin 5.7 mg/L (<=3.0)
== END ==
LOC: REG 12:12
PROVIDERS: ATTENDING PHYSICIAN Internal Medicine; FAMILY PHYSICIAN Family Medicine; OTHER PHYSICIAN Internal Medicine Hematology & Oncology; REFERRING PHYSICIAN Internal Medicine
DX: I48.0 Paroxysmal atrial fibrillation (principal); N18.32 Chronic kidney disease, stage 3b; D47.2 Monoclonal gammopathy
CPT/HCPCS: 36415; 80053; 82232; 82570; 82784; 83521; 83970; 84100; 84155; 84156; 84165; 85025; 85610; 86334

== ENCOUNTER → 2024-09-18 11:07 | Outpatient (REF) | payer MEDICARE, BC, SELFPAY | LOC: WOUND 11:07 | PROVIDERS: ATTENDING PHYSICIAN Surgery; FAMILY PHYSICIAN Family Medicine | DX: L97.321 Non-pressure chronic ulcer of left ankle limited to breakdown of skin (principal); S81.812A Laceration without foreign body, left lower leg, initial encounter; I73.9 Peripheral vascular disease, unspecified; E11.9 Type 2 diabetes mellitus without complications; I48.0 Paroxysmal atrial fibrillation; Z79.01 Long term (current) use of anticoagulants; X58.XXXA Exposure to other specified factors, initial encounter | CPT/HCPCS: 99213 ==

== ENCOUNTER → 2024-09-18 11:31 | Outpatient (REF) | payer MEDICARE, BC, SELFPAY ==
[2024-09-18 12:42] LABS: INR 2.58; PT 27.7 Sec (11.4-14.6)
== END ==
LOC: REG 11:31
PROVIDERS: ATTENDING PHYSICIAN Internal Medicine; FAMILY PHYSICIAN Family Medicine
DX: I48.0 Paroxysmal atrial fibrillation (principal)
CPT/HCPCS: 36415; 85610

== ENCOUNTER → 2024-09-21 13:42 | Outpatient (REF) | payer MEDICARE, BC, SELFPAY | LOC: HWRAD 13:42 | PROVIDERS: ATTENDING PHYSICIAN Internal Medicine; FAMILY PHYSICIAN Family Medicine; OTHER PHYSICIAN Internal Medicine Hematology & Oncology | DX: N28.1 Cyst of kidney, acquired (principal) | CPT/HCPCS: 76775 ==

== ENCOUNTER → 2024-10-23 11:04 | Outpatient (REF) | payer MEDICARE, BC, SELFPAY ==
[2024-10-23 11:46] LABS: INR 2.21; PT 24.7 Sec (11.4-14.6)
[2024-10-23 13:25] LABS: ALT (SGPT) 20 U/L (0-50); AST (SGOT) 33 U/L (17-59); HDL Cholesterol 44 mg/dl; LDL Cholesterol, Calculated 45 mg/dl; Total Cholesterol 103 mg/dl (50-199); Triglyceride 70 mg/dl (10-149); Very Low Density Lipoprotein 14 mg/dl (0-30)
== END ==
LOC: REG 11:04
PROVIDERS: ATTENDING PHYSICIAN Internal Medicine; FAMILY PHYSICIAN Family Medicine
DX: I48.0 Paroxysmal atrial fibrillation (principal); I25.10 Atherosclerotic heart disease of native coronary artery without angina pectoris
CPT/HCPCS: 36415; 80061; 84450; 84460; 85610

== ENCOUNTER → 2024-11-10 14:59 | Outpatient (REF) | payer MEDICARE, BC, SELFPAY ==
[2024-11-10 16:53] LABS: INR 2.88; PT 30.1 Sec (11.4-14.6)
[2024-11-10 16:58] LABS: ALT (SGPT) 21 U/L (0-50); AST (SGOT) 31 U/L (17-59); HDL Cholesterol 44 mg/dl; LDL Cholesterol, Calculated 51 mg/dl; Total Cholesterol 108 mg/dl (50-199); Triglyceride 69 mg/dl (10-149); Very Low Density Lipoprotein 13 mg/dl (0-30)
== END ==
LOC: REG 14:59
PROVIDERS: ATTENDING PHYSICIAN Internal Medicine; FAMILY PHYSICIAN Family Medicine
DX: I25.10 Atherosclerotic heart disease of native coronary artery without angina pectoris (principal); I48.0 Paroxysmal atrial fibrillation
CPT/HCPCS: 36415; 80061; 84450; 84460; 85610

== ENCOUNTER → 2024-11-16 10:01 | Outpatient (REF) | payer MEDICARE, BC, SELFPAY | LOC: RAD 10:01 | PROVIDERS: ATTENDING PHYSICIAN Surgery Vascular Surgery; FAMILY PHYSICIAN Family Medicine | DX: I65.22 Occlusion and stenosis of left carotid artery (principal); I73.9 Peripheral vascular disease, unspecified | CPT/HCPCS: 93880; 93922 ==

== ENCOUNTER → 2025-02-19 17:10 | Outpatient (REF) | payer MEDICARE, BC, SELFPAY ==
[2025-02-19 18:05] LABS: ALT (SGPT) 25 U/L (0-50); AST (SGOT) 36 U/L (17-59); Albumin 4.5 g/dl (3.5-5.0); Alkaline Phosphatase 98 U/L (38-126); Blood Urea Nitrogen 41 mg/dl (9-20); Calcium 9.8 mg/dl (8.4-10.2); Carbon Dioxide 25 mmol/L (22-30); Chloride 109 mmol/L (98-107); Glucose 114 mg/dl (70-99); HDL Cholesterol 52 mg/dl; LDL Cholesterol, Calculated 49 mg/dl; Potassium 4.5 mmol/L (3.5-5.1); Sodium 142 mmol/L (135-145); Total Protein 7.8 g/dl (6.3-8.2); Very Low Density Lipoprotein 9 mg/dl (0-30); eGFR 30.09
[2025-02-20 10:00] LABS: Glycohemoglobin (HgbA1c) 6.6 % (4.0-5.6)
== END ==
LOC: REG 17:10
PROVIDERS: ATTENDING PHYSICIAN Family Medicine
DX: E78.2 Mixed hyperlipidemia (principal); E11.42 Type 2 diabetes mellitus with diabetic polyneuropathy
CPT/HCPCS: 36415; 80053; 80061; 83036

== ENCOUNTER → 2025-03-08 13:36 | Outpatient (REF) | payer MEDICARE, BC, SELFPAY ==
[2025-03-08 14:49] LABS: INR 1.68; PT 20.0 Sec (11.4-14.6)
[2025-03-08 14:56] LABS: ALT (SGPT) 37 U/L (0-50); AST (SGOT) 50 U/L (17-59); Albumin 5.0 g/dl (3.5-5.0); Alkaline Phosphatase 129 U/L (38-126); Blood Urea Nitrogen 36 mg/dl (9-20); Calcium 10.1 mg/dl (8.4-10.2); Carbon Dioxide 26 mmol/L (22-30); Chloride 105 mmol/L (98-107); Glucose 123 mg/dl (70-99); HDL Cholesterol 64 mg/dl; LDL Cholesterol, Calculated 57 mg/dl; Potassium 5.1 mmol/L (3.5-5.1); Sodium 141 mmol/L (135-145); Total Protein 9.1 g/dl (6.3-8.2); Very Low Density Lipoprotein 14 mg/dl (0-30); eGFR 41.01
[2025-03-08 15:12] LABS: Microalb - Urine Creatinine 244.100 mg/dl
[2025-03-08 22:27] LABS: Microalbumin, Random Urine > 57.0 mg/dl (0.6-1.7)
== END ==
LOC: REG 13:36
PROVIDERS: ATTENDING PHYSICIAN Internal Medicine; FAMILY PHYSICIAN Family Medicine
DX: I48.0 Paroxysmal atrial fibrillation (principal); E11.42 Type 2 diabetes mellitus with diabetic polyneuropathy; I10 Essential (primary) hypertension
CPT/HCPCS: 36415; 80053; 80061; 82043; 82570; 85610

== ENCOUNTER → 2025-03-19 16:54 | Outpatient (REF) | payer MEDICARE, BC, SELFPAY ==
[2025-03-19 17:58] LABS: INR 2.89; PT 30.2 Sec (11.4-14.6)
== END ==
LOC: REG 16:54
PROVIDERS: ATTENDING PHYSICIAN Internal Medicine; FAMILY PHYSICIAN Family Medicine
DX: I48.0 Paroxysmal atrial fibrillation (principal)
CPT/HCPCS: 36415; 85610

== ENCOUNTER 2025-05-06 22:25 | Inpatient (IN) | payer MEDICARE, BC, SELFPAY ==
[2025-05-06 18:56] VITALS: BP 145/83
--- NOTE | 2025-05-06 19:09 | ED.GENMED ---
History of Present Illness
General
Chief Complaint: Fall
Time Seen by Provider: 05/06/25 19:09
History of Present Illness
History of Present Illness:
FOCUSED PAST MEDICAL HISTORY
- High blood pressure, hyperlipidemia, CAD/[place], A-fib on Coumadin
REVIEW OF OLD RECORDS
- I reviewed [facility] EMS run sheet indicating the patient had left leg pain after a fall
Note:
CHIEF COMPLAINT(S)
Fall with suspected hip injury.
HISTORY OF PRESENT ILLNESS
The patient is a 80-year-old male who presented to the emergency department following a fall. The patient reports that he was carrying grocery bags when he tripped over a step and fell. The primary impact was on his left thigh, and he denies hitting
his head. He does not have a headache or neck pain. The patient has experienced pain from the hip down to the ankle and has difficulty moving his left leg, with pain exacerbated by rotation of the hip. This limited range of motion is concerning for
a potential hip fracture. There is a chronic deformity noted at the ankle, possibly related to neuropathy or a chronic condition resembling Charcot foot. He also has ongoing issues with varicose veins and leg swelling, which he manages with
diuretics. After the fall, the patient was able to sit up, but required assistance to stand and move to a chair. He had taken one extra-strength Tylenol before arrival and declined additional pain medication.
ADDITIONAL HISTORY OBTAINED FROM SOURCES OTHER THAN THE PATIENT
Per the patients , he was found lying sideways over the step, making it difficult for him to stand on his own. It required assistance from a couple of people to help move him to a chair.
SOCIAL HISTORY
The patient lives with his , who was present at the time of the fall.
MEDICATIONS
The patient has taken one extra-strength Tylenol for pain management.
PHYSICAL EXAM
General: Alert, appears comfortable at rest but does appear uncomfortable with any attempted movement of the left lower extremity
Skin: Warm, dry.
Head: Normocephalic, atraumatic. There is no evidence of craniofacial trauma, no lacerations.
Neck: Supple, trachea midline. No midline C-spine tenderness
Eye Ears, nose, mouth and throat: Oral mucosa moist.
Cardiovascular: Normal peripheral perfusion, No edema.
Respiratory: Respirations are non-labored.
Gastrointestinal: Abdomen nondistended.
Back: Normal range of motion, Normal alignment.
Musculoskeletal: Limited active range of motion into flexion at the left hip, there is pain with passive rotation at the left hip; chronic ankle deformity noted; varicose veins present; legs appear swollen.
Neurological: Alert and oriented to person, place, time, and situation, No focal neurological deficit observed.
Psychiatric: Cooperative, appropriate mood & affect.
PLAN
- Obtain X-ray of the left hip to assess for fracture.
- Evaluate if a CT scan of the brain is necessary, although the patient denies head injury and does not currently complain of headache.
- Reassess the patients pain level and mobility after imaging.
- Discuss potential orthopedic evaluation and intervention depending on imaging results.
DIFFERENTIAL DIAGNOSIS
The Differential Diagnosis includes, in no particular order and is not limited to:
1. Hip fracture
2. Muscle contusion
3. Ankle sprain or chronic Charcot joint changes
4. Deep vein thrombosis due to leg swelling
5. Diabetic neuropathy affecting balance
6. Vertebral compression fracture
7. Ligamentous injury of the knee or hip
8. Pelvic fracture
9. Extensive soft tissue injury or hematoma
10. Normal variant or chronic condition related to foot deformity
RADIOLOGY
- Left intertrochanteric fracture
LABS
- White count 2.9, hemoglobin 11.8, platelets 118�mild pancytopenic. INR 1.6
UPDATE
-SUMMARY OF ENCOUNTER
The patient, a 80-year-old male, presented to the emergency department following a fall with a suspected hip injury. An X-ray revealed a fracture in the left hip, specifically in the intertrochanteric region of the femur. The patient has a history
of using Coumadin, but his INR is not significantly elevated at 1.6. Blood work indicated a mild pancytopenia, with slightly low white blood cells, hemoglobin, and platelet levels. The proposed management plan is hospital admission for surgical
intervention likely required for the hip fracture.
DISPOSITION
Admit
ASSESSMENT
The patient has a confirmed left hip fracture in the intertrochanteric region. His current use of Coumadin may complicate surgical planning, but his INR is within an acceptable range for potential surgery. The mild pancytopenia should be monitored.
MANAGEMENT OF THE PATIENTS CARE WAS DISCUSSED WITH
Messaged the on-call orthopedic doctor, Dr. Ferrer, who is expected to evaluate and plan the surgical intervention. The hospitalist team is also involved in the patients care for pre-surgical management.
PLAN
Admit the patient to the hospital for surgical repair of the hip fracture. Monitor the mild pancytopenia and manage the anticoagulation therapy, considering his current INR level. The hospitalist team and orthopedic surgery team will further
evaluate and determine the timing of surgery. Pain management to continue as necessary with reassessment for stronger analgesics if required.
INDEPENDENT REVIEW OF LABS AND INTERPRETATION OF TESTS
- My independent review of CBC indicates mild pancytopenia with slightly low white blood cell count, hemoglobin level, and platelet count.
My independent interpretation of the hip X-ray indicates a fracture in the intertrochanteric region of the left femur.
FOLLOW-UP INSTRUCTIONS
Await evaluation by the hospitalist team and orthopedic surgical team for further management and timing of surgical intervention.
MEDICATION RECONCILIATION
The patient is on Coumadin therapy for anticoagulation. Pain management with acetaminophen was previously initiated, but no additional pain medication was requested.
MEDICAL DECISION MAKING
- Number and complexity of problems addressed: Chronic conditions affecting care include anticoagulation therapy and pancytopenia.
- Data:
Category 1: Tests and documents reviewed include the CBC and INR levels.
Category 2: Input was obtained from independent historian, the patients spouse.
Category 3: Discussion of management with orthopedic doctor, Dr. Ferrer, and the forthcoming involvement of the hospitalist team.
- Risk: Risk involves potential complications due to surgery while on anticoagulation therapy and the mild pancytopenia. Consideration of Admission/Observation: Escalation of care including admission was necessary given the confirmed fracture and
surgical requirements.
DIAGNOSIS
- Left hip fracture, intertrochanteric region (ICD-10: S72.144A)
- Pancytopenia (ICD-10: D61.9)
- Long-term use of anticoagulants (ICD-10: Z79.01) due to history of atrial fibrillation
Past History
Past History
ED Past Medical History: Arrthythmia, CAD, Hypercholesterolemia, IDDM and [place]
ED Past Surgical History: Cardiac (CABG)
Social History
Tobacco: Non-smoker
Alcohol: Occasional
Drug: None
Personal:
Living: with family
Phy Exam
Physical Exam
Physical Exam:
See HPI
Course
Orders/Labs/Results
Orders:
Orders
05/06/25 19:17
CR Femur - Left Min 2 Vw Urgent
Comment:
Reason For Exam: trauma
CR Pelvis - 1 Or 2 Views Urgent
Reason For Exam: trauma
05/06/25 19:31
Basic Metabolic Panel Urgent
Complete Blood Count/With Diff Urgent
Prothrombin Time Urgent
Abnormal Lab Results
05/06/25
19:31
WBC 2.9 L 10^3/uL
(4.8-10.8)
RBC 3.77 L 10^6/uL
(4.70-6.10)
Hgb 11.8 L g/dL
(13.0-18.0)
Hct 35.2 L %
(39.0-52.0)
MCH 31.3 H pg
(27.0-31.0)
Plt Count 118 L 10^3/uL
(130-400)
Absolute Lymphs (auto) 0.9 L 10^3/uL
(1.2-3.4)
Monocytes % 9.8 H %
(1.7-9.3)
PT 19.7 H Sec
(11.4-14.6)
Sodium 134 L mmol/L
(135-145)
BUN 47 H mg/dl
(9-20)
Creatinine 1.9 H mg/dL
(0.7-1.3)
Glucose 119 H mg/dl
(70-99)
05/06/25 19:31
05/06/25 19:31
Vital Signs
Initial and Last Documented VS:
Initial Vital Signs
Temp Pulse Resp BP Pulse Ox
36.9 C 60 16 145/83 98
05/06/25 18:56 05/06/25 18:56 05/06/25 18:56 05/06/25 18:56 05/06/25 18:56
Last Documented Vital Signs
Temp Pulse Resp BP Pulse Ox
36.9 C 64 16 145/83 98
05/06/25 18:56 05/06/25 20:35 05/06/25 18:56 05/06/25 18:56 05/06/25 20:35
*Pulse Oximetry
SaO2: 98
Oxygen Mode of Delivery: Room air
Patient hypoxic: no
*Critical Care Note
Total Time (30-74mins, 75-104mins- exclusive of procedures): Not Applicable
ED Attending Note
-
Portions of this chart may have been created with voice recognition software.� Occasional wrong word or��sound alike� substitutions may have occurred due to the inherent limitations of voice recognition software.
Discharge Plan
Departure
Patient Disposition: Admit
Date of Disposition: 05/06/25
Time of Disposition: 20:49
Presentation/result/management discussed w/ accepting MD/DO: Hospitalist
Patient with high blood pressure during this ER visit?: Yes
Discharge Problem:
Closed fracture of left hip
Prescriptions:
No Action
metoprolol succinate 50 MG tablet extended release 24 hr
50 mg PO HS
atorvastatin [Lipitor] 40 MG tablet
40 mg PO HS
warfarin [Jantoven] 5 MG tablet
5 mg PO SUMOTUWEFRSA
Patient Comments:
HS
torsemide 20 mg Tablet
20 mg PO DAILY
warfarin 2.5 mg Tablet
2.5 mg PO TH
aspirin 81 mg Tablet,Delayed Release (Dr/Ec)
81 mg PO DAILY
potassium chloride 20 mEq Tablet Extended Release
20 meq PO DAILY
cephalexin 500 mg capsule
500 mg PO QID 5 Days Qty: 20 0RF
Referrals:
Madi Hanks MD [Family Provider, Family Practice]
Interventions
Interventions:
*Risk Screen - Suicide Last Done: 05/06/25 18:56
*General Assessment Last Done: 05/06/25 18:56
*Neglect/Abuse Screening Last Done: 05/06/25 18:56
*ED- Fall Risk Assessment Last Done: 05/06/25 19:10
*ED COVID-19 Vaccine History Last Done: 05/06/25 19:10
*ED Influenza Vaccine History Last Done: 05/06/25 19:10
ED-Musculoskeletal Assessment Last Done: 05/06/25 19:10
ED- Neurological Assessment Last Done: 05/06/25 19:10
ED-Skin Assessment Last Done: 05/06/25 19:10
Discharge Date and Time
Print Language: JAMAICAN
[2025-05-06 19:10] VITALS: BMI 27.5
[2025-05-06 19:44] LABS: Hematocrit 35.2 % (39.0-52.0); Hemoglobin 11.8 g/dL (13.0-18.0); Mean Corp Hgb Conc. 33.5 g/dL (33.0-37.0); Mean Corpuscular Volume 93.4 fL (80.0-94.0); Nucleated Red Blood Cells % 0 % (-); Platelet Count 118 10^3/uL (130-400); Red Cell Dist. Width 13.6 % (11.5-14.5)
[2025-05-06 19:50] LABS: INR 1.61; PT 19.7 Sec (11.4-14.6)
[2025-05-06 19:59] LABS: Blood Urea Nitrogen 47 mg/dl (9-20); Calcium 9.6 mg/dl (8.4-10.2); Carbon Dioxide 26 mmol/L (22-30); Chloride 105 mmol/L (98-107); Estimated Creatinine Clearance 34 ml/min; Glucose 119 mg/dl (70-99); Potassium 4.9 mmol/L (3.5-5.1); Sodium 134 mmol/L (135-145); eGFR 35.66
--- NOTE | 2025-05-06 20:59 | HPS.HSE ---
Family Physician
-
Family Physician: Madi Hanks
Chief Complaint
-
Mechanical fall
History of Present Illness
This is a 80-year-old male with past medical history notable for CAD status post CABG, atrial flutter with first-degree AV block status post anticoagulation on Coumadin, CHF with depressed EF of 45 to 50%, PAD status post left big toe amputation,
history of type 2 diabetes, BPH, presenting to the emergency department following a mechanical fall at home.
Patient reports walking from his vehicle into his house with to grocery bags in each hand when due to poor vision in the reduced lighting environment he did not see a step and then tripped over and fell landing towards his left side. Immediately
had left hip pain and difficulty ambulating. EMS was called. He had no prior palpitations lightheadedness or dizziness. He denies any focal weakness prior to that. He denies any ambulatory dysfunction prior to that. Patient has no recent
episode of chest pain. He does have a history of ischemic cardiomyopathy status post CABG but he says his last use of nitroglycerin was 2016. He has no recent episodes of CHF exacerbation, edema, chest pain, palpitations. He has a prior history
of carotid endarterectomy and denies any recent episodes of TIA.
In the emergency department the patient was afebrile, blood pressure 145/80 with a pulse of 64 and was satting 98% on room air.
CBC shows a mild pancytopenia with WBC of 2.9 hemoglobin 11.8 and a bili of 118. Electrolytes were mostly unremarkable with a potassium of 4.9 bicarb of 26 BUN and creatinine for 7 and 1.9 which is at his baseline.
X-ray shows a left intertrochanteric hip fracture.
Medical History
Past Medical History
Past Medical History: Reports Arrhythmia (Atrial flutter, 4 degree AV block), CAD (Status post CABG), CHF (CHF with depressed EF 45 to 50%,) and Other (CKD stage III, BPH, history of osteomyelitis, peripheral arterial disease status post left big
toe amputation)
Past Surgical History: Reports Cardiac (CABG)
Social History
Tobacco: Non-smoker
Alcohol: None
Drug: None
Living: With Family
Family History
Family History: Not pertinent
Allergies / Home Medications
Allergies reflects when Allergies were last updated in [email or web address] ([employer]
Home Medications with original date entered in [email or web address] ([employer])
Allergy/Medication List:
Allergies
Allergy/AdvReac Type Severity Reaction Status Date / Time
No Known Allergies Allergy Verified 05/06/25 18:55
Home Medications
metoprolol succinate 50 mg tablet,extended release 24 hr 50 mg PO HS Blood pressure 01/06/19
Rosuvastatin 40 mg tablet, 40 mg PO HS High cholesterol 08/11/19
warfarin 5 mg tablet (Jantoven) 10 mg PO SUTUTHSA Blood clot prevention/tx 08/11/19
warfarin 5 mg tablet (Jantoven) 5 mg PO MOWEFR Blood clot prevention/tx 08/11/19
aspirin 81 mg tablet,delayed release 81 mg PO DAILY Blood clot prevention/tx 01/04/22
torsemide 20 mg tablet 20 mg PO DAILY PRN retention/Swelling 01/04/22
Pioglitazone/metformin 50 mg / 850 mg tablet, 1 tablet p.o. daily
Review of Systems
-
Constitutional: Reports No Symptoms
EENT: Reports No Symptoms
Respiratory: Reports No Symptoms
Cardiac: Reports No Symptoms
Abdomen/GI: Reports No Symptoms
: Reports No Symptoms
Musculoskeletal: Reports Joint Pain
Skin: Reports No Symptoms
Neurological: Reports No Symptoms
Endocrine: Reports No Symptoms
Hematologic/Lymphatic: Reports No Symptoms
Psych: Reports No Symptoms
Physical Exam
Vital Signs
Vital Signs
Temp Pulse Resp BP Pulse Ox
98.4 F 64 16 145/83 98
05/06/25 18:56 05/06/25 20:35 05/06/25 18:56 05/06/25 18:56 05/06/25 20:35
Physical Exam
General: Well Developed, Well Nourished and No Apparent Distress
HEENT: NormoCephalic, Moist mucous membranes and Atraumatic
Respiratory: Clear
Cardiac: S1/S2 and Regular Rhythm; No Murmur or Rub
GI: Soft, Non Tender, Non Distended and Normal Bowel Sounds; No Organomegaly
Rectal: Deferred by Provider
Musculoskeletal: No Clubbing, No Cyanosis, No Edema and Other (Slightly externally rotated left foot. Trace pretibial edema.)
Skin: No Rash
Neuro: AO x 3 and Nonfocal/grossly intact
Psych: Calm
Laboratory Results
-
05/06/25 19:31
05/06/25 19:31
Laboratory Results
PT 19.7 Sec (11.4-14.6) H 05/06/25 19:31
INR 1.61 05/06/25 19:31
Data Reviewed
-
Diagnostic Radiology: Image Personally Visualized and interpreted
Lab Data: Labs Reviewed by me
Old Records: Reviewed
Impression/Plan
-
IMPRESSION:
80-year-old with ischemic cardiomyopathy, CAD status post CABG, atrial flutter on anticoagulation with Coumadin, carotid stenosis status post carotid endarterectomy presents to the emergency department with mechanical fall found to have a left
intertrochanteric hip fracture.
PLAN:
Hip fracture -secondary to mechanical fall. Patient hemodynamically stable. Has chronic kidney disease that has been stable for several years now.
- Admit to MedSurg
- Holding anticoagulation
- Pain control
- Monitoring for urinary retention
- PT consultation
- N.p.o. after midnight with possible OR in the a.m.
- Ortho consulted and aware
Atrial fibrillation
- Continue metoprolol 50 mg succinate for now
- Hold Coumadin (patient is on Coumadin 10 mg 4 times a week and 5 mg 3 times a week), INR 1.6 which is subtherapeutic
CHF -euvolemic and hemodynamically stable
- Continue metoprolol as above
- Patient on as needed torsemide, on hold for now
CAD
- hold his daily aspirin 81 presurgery
- continue rosuvostatin (dose unclear reported to b4e 40mg daily but spouse to confirm tomorrow)
DVT prophylaxis -SCDs for now, on anticoagulation with Coumadin on hold for now.
CODE STATUS -full code
[2025-05-06 22:45] VITALS: BMI 25.4
[2025-05-06 23:07] VITALS: BP 140/77; BMI 25.4
[2025-05-06] MEDS: LR 500 IV (23:30)
[2025-05-06] MEDS: TRUSOPT 2% OPHTHALMIC SOLUTION 1 DROP OPHTH (23:34)
[2025-05-06] MEDS: TOPROL XL 50 MG PO (23:34)
[2025-05-06] MEDS: SENOKOT PO (23:35)
[2025-05-06] MEDS: COLACE PO (23:35)
[2025-05-06] MEDS: TYLENOL PO (23:36)
[2025-05-07] VITALS (12 sets, daily range): BP systolic 110–148; BP diastolic 45–85; BMI 25.5
--- NOTE | 2025-05-07 00:11 | TRANSFER ---
pt adm from ED @2245 w left hip fracture. LLE shortened and externally rotated. Pt reported 2/10 pain with movement. VS WNL. IVF as ordered. Plan of care discussed with pt. Call sotomayor within reach, bed in lowest position. Assessments as documented.
[2025-05-07] MEDS: ROXICODONE 5 MG PO ×4 (00:32→16:33)
[2025-05-07] MEDS: TYLENOL PO ×2 (05:00→12:20)
--- NOTE | 2025-05-07 05:26 | CON.ORTHO ---
Consultation
-
Date/Time Consultation Requested: May 11
Date/Time Consultation Performed: May 11
Requesting Provider: Russell
Performing Provider: Esther for [facility]
Reason for Consultation: Left Hip Fracture
Consultation - Orthopedics
History
History of Present Illness:
80-year-old male with PMH of CABG, atrial flutter with first-degree AV block status post ablation, on Coumadin (INR 1.61, repeat INR pending), CHF with depressed EF of 45 to 50%, PAD status post left big toe amputation, type 2 diabetes, BPH, who
presents to the emergency department following a mechanical fall at home. Patient reports walking from his vehicle into his house with two grocery bags in each hand when due to poor vision in the reduced lighting environment he did not see a step
and then tripped over and fell landing towards his left side. Immediately had left hip pain and difficulty ambulating. No reported headstrike. No prodrome. EMS was called. He denies any ambulatory dysfunction prior to that. Patient has no recent
episode of chest pain. He does have a history of ischemic cardiomyopathy status post CABG but he says his last use of nitroglycerin was 2016. He has no recent episodes of CHF exacerbation, edema, chest pain, palpitations. He has a prior history
of carotid endarterectomy and denies any recent episodes of TIA. In the ED xrays confirmed a left hip fracture, therefore we have been consulted for orthopaedic management. BUN and Cr at bit elevated, but baseline, repeat pending.
Past Medical History:
Atrial flutter, 4 degree AV block, CAD (Status post CABG), CHF (CHF with depressed EF 45 to 50%,) CKD stage III, BPH, osteomyelitis, peripheral arterial disease status post left big toe amputation
Past Surgical History:
CABG
Social History:
Tobacco: Non-smoker
Alcohol: None
Drug: None
Living: With Family
Family History:
Family History: Not pertinent
ROS:
12 point negative except those mentioned in the HPI
Allergies / Home Medications
Allergy/AdvReac Type Severity Reaction Status Date / Time
No Known Allergies Allergy Verified 05/06/25 18:55
�Medication �Instructions �Recorded
metoprolol succinate 50 mg 50 mg PO HS Blood pressure 01/06/19
tablet,extended release 24 hr
atorvastatin 40 mg tablet (Lipitor) 40 mg PO HS High cholesterol 08/11/19
warfarin 5 mg tablet (Jantoven) 5 mg PO SUMOTUWEFRSA Blood clot 08/11/19
prevention/tx
aspirin 81 mg tablet,delayed 81 mg PO DAILY Blood clot 01/04/22
release prevention/tx
potassium chloride 20 mEq 20 meq PO DAILY Supplement 01/04/22
tablet,extended release
torsemide 20 mg tablet 20 mg PO DAILY Fluid 01/04/22
retention/Swelling
warfarin 2.5 mg tablet 2.5 mg PO TH Blood clot 01/04/22
prevention/tx
cephalexin 500 mg capsule 500 mg PO QID 5 days #20 caps 06/30/24
Vital Signs / Lab Results
Temp Pulse Resp BP Pulse Ox
98.0 F 89 16 140/77 98
05/06/25 23:07 05/06/25 23:34 05/06/25 23:07 05/06/25 23:34 05/06/25 23:07
Assessment / Plan
PE: Afeb. Bedrest. Left hip skin intact. LLE slightly short and ER. Generalized pain to palpation left hip. + logroll. Deferred ROM due to known fracture. Left knee nontender. Calf soft, nontender. DNVI LLE
Xrays: LEFT IT fracture
Impression: FLACO
Plan: Discussed with the patient at length the nature of his left hip injury and confirmed fracture, which healed his understanding. Nonoperative and operative management, including the RBAs of each discussed at length. We have recommended a
cephalomedullary nail fixation of his left hip fracture. He has excepted all the proposed risks of recommended surgery and would like to proceed. We briefly discussed the postop and rehab course as well, and will appreciate CM assistance with
disposition. Discussed with Dr. Epps, who is now aware of the plan. Assuming medical clearance, we will look to proceed either later today or tomorrow with a gamma nail fixation of his left hip, likely under the direction of Dr. Ferrer, as he and
the OR are mutually available. OR aware. Surgical and blood consents have been signed by the patient and placed to his chart. Operative site has been marked as the LEFT hip. T&S requested. patient is and will remain NPO. will await repeat labs,
including coagulation studies. Would recommend INR, per anesthesia, around 1.5-1.6 to proceed with regional anesthesia, if possible. Orders placed. Patient to remain at bedrest for now. Will follow.
[2025-05-07 06:06] LABS: Glucose - Point of Care 115 mg/dl (70-99)
[2025-05-07 06:36] LABS: Hematocrit 32.7 % (39.0-52.0); Hemoglobin 10.8 g/dL (13.0-18.0); Mean Corp Hgb Conc. 33.0 g/dL (33.0-37.0); Mean Corpuscular Volume 90.6 fL (80.0-94.0); Platelet Count 116 10^3/uL (130-400); Red Cell Dist. Width 13.5 % (11.5-14.5)
[2025-05-07 06:37] LABS: INR 1.83; PT 21.6 Sec (11.4-14.6)
[2025-05-07] MEDS: NOVOLOG FLEXPEN-LOW RESISTANCE SC ×3 (06:45→16:44)
[2025-05-07 06:49] LABS: Blood Urea Nitrogen 39 mg/dl (9-20); Calcium 9.3 mg/dl (8.4-10.2); Carbon Dioxide 24 mmol/L (22-30); Chloride 106 mmol/L (98-107); Estimated Creatinine Clearance 43 ml/min; Glucose 124 mg/dl (70-99); Potassium 4.3 mmol/L (3.5-5.1); Sodium 135 mmol/L (135-145); eGFR 47.36
[2025-05-07] MEDS: ACTOS PO (08:00)
[2025-05-07] MEDS: COLACE PO (08:00)
[2025-05-07] MEDS: SENOKOT PO (08:00)
--- NOTE | 2025-05-07 09:45 | CM ---
Chart reviewed and spoke with patient at bedside
Lives with in [address] [place]
Independent with ADLs and ambulation
no DME
drives him to appts
Son lives in an apt on pt's property.
Son is off work from [employer] so son would be able to assist post op if needed at home
4 dtrs [facility] [place], [place] [facility] and [address] at [place]
[address] Madi Hanks
RX plan no
Per pt [facility] is cheaper for his RX at this time. Added that he could always add Part D anytime if needed
Declined to have more resources at this time
Pharmacy [facility] in [place]
[facility] in the past
[facility] 3 yo ago for wound care
DCP is to go home with services if needed
Pt prefers to go home but would see how he does after surgery
Family can provide transportation
CM will continue to follow up for any dcp needs
[2025-05-07] MEDS: TYLENOL 650 MG PO ×3 (09:50→20:57)
[2025-05-07] MEDS: PRED FORTE 1% EYE DROPS 1 DROP OPHTH ×2 (09:50→21:58)
--- NOTE | 2025-05-07 12:09 | W.PN.HOSP.TC ---
Today's Communication/Plan
-
Monitor vital signs see plan
Restart aspirin Coumadin when okay with orthopedics
Plan for OR today
PT/OT after OR by orthopedics
Pain control
Insulin sliding scale
Assessment / Plan
Assessment / Plan
General: Well Developed, Well Nourished and No Apparent Distress
HEENT: NormoCephalic, Moist mucous membranes and Atraumatic
Respiratory: Clear
Cardiac: S1/S2 and Regular Rhythm; No Murmur or Rub
GI: Soft, Non Tender, Non Distended and Normal Bowel Sounds
Musculoskeletal: No Edema and Other (Slightly externally rotated left foot. Trace pretibial edema.)
Neuro: AO x 3 and Nonfocal/grossly intact
Psych: Calm
Hip fracture -secondary to mechanical fall
- Holding anticoagulation
- Pain control
- Monitoring for urinary retention
- PT consultation per ortho after OR
N.p.o. for OR today
ortho following
denies chest pain,sob
EKG with old infarct; RCRI score 2; 5% risk of major cardiac event.
Paroxysmal atrial fibrillation
- Continue metoprolol
- Hold Coumadin (patient is on Coumadin 10 mg 4 times a week and 5 mg 3 times a week), INR 1.6 which is subtherapeutic
History of left carotid stenosis status post left CEA
CHFrEF -appears euvolemic
- Continue metoprolol as above
- Patient on as needed torsemide, on hold for now
follows up with Dr Sarmiento outpatient
CAD
- hold his daily aspirin 81 presurgery
History of CKD
Monitor
Hyperlipidemia
Type 2 diabetes mellitus
DVT prophylaxis -SCDs for now, on anticoagulation with Coumadin on hold for now.
CODE STATUS -full code
I spent a total of 52 minutes with the patient or on the floor. More than 50% of this time involved counseling and coordination of care.
Anticipated Discharge: 24 - 48 hours
Subjective/Interval History
-
Date of Service: May 07, 2025
Does have some pain at times
Objective Data
-
Labs:
Laboratory Results
05/07/25
05:40
WBC 4.2 L
Hgb 10.8 L
Hct 32.7 L
Plt Count 116 L
PT 21.6 H
INR 1.83
Sodium 135
Potassium 4.3
Chloride 106
Carbon Dioxide 24
BUN 39 H
Creatinine 1.5 H
Glucose 124 H
Calcium 9.3
Vital Signs:
Vital Signs
Temp Pulse Resp BP Pulse Ox
97.6 F 65 16 130/64 100
05/07/25 07:45 05/07/25 07:45 05/07/25 07:45 05/07/25 07:45 05/07/25 07:45
I&O
05/06/25 05/07/25 05/08/25
06:59 06:59 06:59
Output Total 625 / 625
Balance -625 / -625
[2025-05-07 12:17] LABS: Glucose - Point of Care 112 mg/dl (70-99)
[2025-05-07 16:42] LABS: Glucose - Point of Care 105 mg/dl (70-99)
[2025-05-07 19:53] LABS: Glucose - Point of Care 103 mg/dl (70-99)
--- NOTE | 2025-05-07 21:45 | PTCARENOTE ---
Pt arrived to [facility] at 2145 from PACU s/p ORIF L hip gamma nail. Pt AAOx3. VSS. Pt oriented to room, call sotomayor within reach, bed locked and in lowest position. Plan of care reviewed with pt and spouse at bedside. All questions answered. Care
ongoing.
[2025-05-07] MEDS: SENOKOT 17.2 MG PO (21:58)
[2025-05-07] MEDS: COLACE 100 MG PO (21:58)
[2025-05-07] MEDS: TOPROL XL 50 MG PO (21:58)
[2025-05-07 22:02] LABS: Glucose - Point of Care 134 mg/dl (70-99)
[2025-05-07] MEDS: TRUSOPT 2% OPHTHALMIC SOLUTION 1 DROP OPHTH (22:25)
[2025-05-08] VITALS (12 sets, daily range): BP systolic 83–117; BP diastolic 41–75; PULSE 70–75; BMI 25.8
[2025-05-08] MEDS: TYLENOL 650 MG PO ×6 (00:11→20:08)
[2025-05-08] MEDS: ROXICODONE 5 MG PO (03:32)
[2025-05-08] MEDS: ANCEF 5 IV ×2 (03:32→11:38)
--- NOTE | 2025-05-08 04:41 | PTCARENOTE ---
Pt LLE with increased swelling and coolness. Pt c/o pain in the LLE. SCDs removed per pt request, will reapply at 0600. SHAWN Canales at bedside to assess pt. Venous doppler L lower ext ultrasound ordered. Care ongoing.
[2025-05-08 06:27] LABS: Hematocrit 27.1 % (39.0-52.0); Hemoglobin 9.1 g/dL (13.0-18.0); Mean Corp Hgb Conc. 33.6 g/dL (33.0-37.0); Mean Corpuscular Volume 91.6 fL (80.0-94.0); Nucleated Red Blood Cells % 0 % (-); Platelet Count 100 10^3/uL (130-400); Red Cell Dist. Width 13.2 % (11.5-14.5)
[2025-05-08 06:35] LABS: INR 2.64; PT 28.1 Sec (11.4-14.6)
[2025-05-08 06:56] LABS: Blood Urea Nitrogen 34 mg/dl (9-20); Calcium 8.6 mg/dl (8.4-10.2); Carbon Dioxide 24 mmol/L (22-30); Chloride 106 mmol/L (98-107); Estimated Creatinine Clearance 46 ml/min; Glucose 157 mg/dl (70-99); Potassium 4.2 mmol/L (3.5-5.1); Sodium 136 mmol/L (135-145); eGFR 51.45
--- NOTE | 2025-05-08 07:04 | W.PN.UPDATE ---
Update Note
Progress Note Update
patient c/o left calf pain, and thinks its more edematous than before. Normally left leg swollen. lymphedema?. Right leg without pain or edema. Left foot + pulses, cool to touch comparing to right, noted old discoloration, + 2 edema, no redness cuts
noted. Left hip dressing in place CDI
US left leg r/o DVT
s/p Day 1 intramedullary nailing.
--- NOTE | 2025-05-08 07:54 | PTCARENOTE ---
assumed care of pt from previous shift @0700. pt reports less discomfort in LLE after SCD's removal and pain medication. foot is warm, + pedal pulse, good movement and sensation, edema +1-2 in Left leg. pt reports discomfort in left groin area.
transferred to US via stretcher at this time.
--- NOTE | 2025-05-08 08:20 | W.PN.ORTHO ---
Today's Communication / Plan
-
80M POD 1 L HAROLDO w/ Dr. Ferrer
- WBAT to LLE
- postop ABX as ordered
- PT/OT/discharge planning
- DVT PPx: Per primary
- Diet orders per primary
- Pain regimen in place
- Maintain dressings till first postoperative visit. Notify if saturation
- Orthopedic surgery will continue to follow
Assessment
.
Dressing:
Clean, dry and intact.
Plan
.
Surgery / Date: 05/07/2025 L CMN w/ Dr. Ferrer
Activity:
Out of bed.
PT/OT
Subjective
.
.:
Patient at US testing at time of rounds.
Vital Signs and Labs
.
Vital Signs and Labs:
Lab Results
05/08/25 05:56
05/08/25 05:56
Temp Pulse Resp BP Pulse Ox
97.8 F 63 16 96/55 99
05/08/25 07:00 05/08/25 07:00 05/08/25 07:00 05/08/25 07:00 05/08/25 07:00
PT 28.1 Sec (11.4-14.6) H 05/08/25 05:56
INR 2.64 05/08/25 05:56
[2025-05-08] MEDS: COLACE 100 MG PO ×2 (09:35→20:08)
[2025-05-08] MEDS: SENOKOT 17.2 MG PO ×2 (09:35→20:08)
[2025-05-08] MEDS: ACTOS 15 MG PO (09:35)
[2025-05-08 09:36] LABS: Glucose - Point of Care 152 mg/dl (70-99)
[2025-05-08] MEDS: NOVOLOG FLEXPEN-LOW RESISTANCE SC ×2 (09:38→15:23)
[2025-05-08] MEDS: ASPIR LOW (ENTERIC COATED) 81 MG PO (09:39)
[2025-05-08] MEDS: PRED FORTE 1% EYE DROPS 1 DROP OPHTH ×2 (09:40→20:08)
--- NOTE | 2025-05-08 11:10 | W.PN.HOSP.TC ---
Today's Communication/Plan
-
Monitor vital signs see plan
Coumadin tonight
Monitor INR
PT
Assessment / Plan
Assessment / Plan
General: Well Developed, Well Nourished and No Apparent Distress
HEENT: NormoCephalic, Moist mucous membranes and Atraumatic
Respiratory: Clear
Cardiac: S1/S2 and Regular Rhythm; No Murmur or Rub
GI: Soft, Non Tender, Non Distended and Normal Bowel Sounds
Musculoskeletal: No Edema and LLE surgical wound
Neuro: AO x 3 and Nonfocal/grossly intact
Psych: Calm
Hip fracture -secondary to mechanical fall
s/p OR 05/08 by ortho
- Pain control
- Monitoring for urinary retention
PT
ortho following
Paroxysmal atrial fibrillation
- Continue metoprolol
INR 2.6 today; give 3mg coumadin tonite
Left lower extremity discomfort, ultrasound with nonocclusive thrombus within the left popliteal vein
Likely secondary to noncompliance with Coumadin at times given his subtherapeutic INR
Repeat ultrasound outpatient
History of left carotid stenosis status post left CEA
CHFrEF -appears euvolemic
- Continue metoprolol as above
- Patient on as needed torsemide, on hold for now
follows up with Dr Sarmiento outpatient
CAD
- hold his daily aspirin 81 presurgery
History of CKD
Monitor
Hyperlipidemia
Type 2 diabetes mellitus
DVT prophylaxis -Coumadin
CODE STATUS -full code
I spent a total of 52 minutes with the patient or on the floor. More than 50% of this time involved counseling and coordination of care.
Anticipated Discharge: 24 - 48 hours
Subjective/Interval History
-
Date of Service: May 08, 2025
Denies nausea
Objective Data
-
Labs:
Laboratory Results
05/08/25
05:56
WBC 4.7 L
Hgb 9.1 L
Hct 27.1 L
Plt Count 100 L
PT 28.1 H
INR 2.64
Sodium 136
Potassium 4.2
Chloride 106
Carbon Dioxide 24
BUN 34 H
Creatinine 1.4 H
Glucose 157 H
Calcium 8.6
Vital Signs:
Vital Signs
Temp Pulse Resp BP Pulse Ox
97.8 F 63 16 96/55 99
05/08/25 07:00 05/08/25 07:00 05/08/25 07:00 05/08/25 07:00 05/08/25 07:45
I&O
05/07/25 05/08/25 05/09/25
06:59 06:59 06:59
Intake Total 720 / 720
Output Total 625 / 625 240 / 240
Balance -625 / -625 480 / 480
[2025-05-08] MEDS: FLUSH (NSS) 2 FLUSH IV (11:39)
[2025-05-08] MEDS: NSS 500 IV (15:45)
--- NOTE | 2025-05-08 16:19 | PTCARENOTE ---
VS at 1500-BP 86/49, HR 99. pt asymptomatic, sitting in bed. Dr Epps notified and Midodrine and NS bolus provided per AUG. care ongoing.
[2025-05-08 17:41] LABS: Glucose - Point of Care 201 mg/dl (70-99)
[2025-05-08] MEDS: COUMADIN 3 MG PO (18:16)
[2025-05-08] MEDS: NOVOLOG FLEXPEN-LOW RESISTANCE 2 UNITS SC (18:17)
[2025-05-08] MEDS: TOPROL XL 50 MG PO (21:17)
[2025-05-08] MEDS: TRUSOPT 2% OPHTHALMIC SOLUTION 1 DROP OPHTH (21:17)
[2025-05-08 21:43] LABS: Glucose - Point of Care 151 mg/dl (70-99)
[2025-05-09] MEDS: TYLENOL 650 MG PO ×7 (00:56→23:57)
[2025-05-09 06:00] VITALS: BMI 26.2
[2025-05-09 06:36] LABS: Blood Urea Nitrogen 40 mg/dl (9-20); Calcium 8.3 mg/dl (8.4-10.2); Carbon Dioxide 26 mmol/L (22-30); Chloride 105 mmol/L (98-107); Estimated Creatinine Clearance 36 ml/min; Glucose 140 mg/dl (70-99); Potassium 4.3 mmol/L (3.5-5.1); Sodium 132 mmol/L (135-145); eGFR 38.05
[2025-05-09 06:45] LABS: Hematocrit 23.2 % (39.0-52.0); Hemoglobin 7.8 g/dL (13.0-18.0); INR 2.93; Mean Corp Hgb Conc. 34.1 g/dL (33.0-37.0); Mean Corpuscular Volume 91.3 fL (80.0-94.0); Nucleated Red Blood Cells % 0 % (-); PT 30.5 Sec (11.4-14.6); Platelet Count 106 10^3/uL (130-400); Red Cell Dist. Width 13.4 % (11.5-14.5)
[2025-05-09 07:20] VITALS: BP 116/41
[2025-05-09] MEDS: NOVOLOG FLEXPEN-LOW RESISTANCE SC (08:39)
[2025-05-09 08:40] LABS: Glucose - Point of Care 138 mg/dl (70-99)
[2025-05-09] MEDS: ACTOS 15 MG PO (08:40)
[2025-05-09] MEDS: SENOKOT 17.2 MG PO ×2 (08:40→19:49)
[2025-05-09] MEDS: COLACE 100 MG PO ×2 (08:40→19:50)
[2025-05-09] MEDS: ASPIR LOW (ENTERIC COATED) 81 MG PO (08:40)
[2025-05-09] MEDS: PRED FORTE 1% EYE DROPS 1 DROP OPHTH ×2 (08:41→19:50)
[2025-05-09] MEDS: ROXICODONE 5 MG PO (08:42)
--- NOTE | 2025-05-09 08:49 | W.PN.ORTHO ---
Today's Communication / Plan
-
80M POD 2 L CMN w/ Dr. Ferrer
- WBAT to LLE
- PT/OT/discharge planning
- DVT PPx: Per primary, coumadin baseline
- Diet orders per primary
- Pain regimen in place
- Maintain dressings till first postoperative visit. Notify if saturation
- Orthopedic surgery will follow peripherally- discharge information completed.
Assessment
.
Distal Motor Intact: Yes
Dressing:
Clean, dry and intact.
Plan
.
Surgery / Date: 05/07/2025 L CMN w/ Dr. Ferrer
Activity:
Out of bed.
PT/OT
Subjective
.
.:
Patient resting comfortably.
Vital Signs and Labs
.
Vital Signs and Labs:
Lab Results
05/09/25 05:40
05/09/25 05:40
Temp Pulse Resp BP Pulse Ox
98.2 F 61 16 116/41 100
05/09/25 07:20 05/09/25 07:20 05/09/25 07:20 05/09/25 07:20 05/09/25 07:20
PT 30.5 Sec (11.4-14.6) H 05/09/25 05:40
INR 2.93 05/09/25 05:40
[2025-05-09 09:05] LABS: Iron 30 ug/dl (49-181)
[2025-05-09 09:15] LABS: Total Iron Binding Capacity 247 ug/dl (261-462)
[2025-05-09 09:34] VITALS: BP 102/66; BP 63/47; PULSE 62; O2SAT 95
[2025-05-09 09:36] VITALS: BP 102/66; BP 63/47; PULSE 62; O2SAT 95
[2025-05-09 09:59] LABS: Ferritin 65.5 ng/ml (17.9-464.0)
[2025-05-09 10:31] LABS: Folate 5.4 ng/ml (2.76-20); Vitamin B12 245 pg/ml (239-931)
[2025-05-09] MEDS: NSS 500 IV (11:28)
[2025-05-09 11:44] LABS: Glucose - Point of Care 216 mg/dl (70-99)
--- NOTE | 2025-05-09 11:52 | W.PN.HOSP.TC ---
Today's Communication/Plan
-
Monitor vital signs see plan
Check iron panel, if low iron stores then we will start IV iron
Monitor orthostatics
Gentle hydration
Hold Coumadin
Repeat hemoglobin later today
Monitor INR
Assessment / Plan
Assessment / Plan
General: Well Developed, Well Nourished and No Apparent Distress
HEENT: NormoCephalic, Moist mucous membranes and Atraumatic
Respiratory: Clear
Cardiac: S1/S2 and Regular Rhythm; No Murmur or Rub
GI: Soft, Non Tender, Non Distended and Normal Bowel Sounds
Musculoskeletal: No Edema and LLE surgical wound
Neuro: AO x 3 and Nonfocal/grossly intact
Psych: Calm
Hip fracture -secondary to mechanical fall
s/p OR 05/08 by ortho
- Pain control
- Monitoring for urinary retention
PT rec SNF
ortho following
Orthostatic hypotension
Gentle hydration
Midodrine
Acute on chronic anemia likely secondary to acute blood loss from surgery
Continue to monitor
Repeat hemoglobin later today
Check iron panel, if low iron stores then we will start IV iron. Discussed with RN, no signs of bleeding at this time.
Paroxysmal atrial fibrillation
- Continue metoprolol
INR 2.9 today; hold coumadin tonite
Left lower extremity discomfort, ultrasound with nonocclusive thrombus within the left popliteal vein
Likely secondary to noncompliance with Coumadin at times given his subtherapeutic INR and patient admitting missing days of coumadin
Repeat ultrasound outpatient
History of left carotid stenosis status post left CEA
CHFrEF -appears euvolemic
- Continue metoprolol as above
- Patient on as needed torsemide, on hold for now. Monitor clinical status closely
follows up with Dr Sarmiento outpatient
CAD
aspirin 81
History of CKD
Monitor
Hyperlipidemia
Type 2 diabetes mellitus
DVT prophylaxis -Coumadin
CODE STATUS -full code
I spent a total of 52 minutes with the patient or on the floor. More than 50% of this time involved counseling and coordination of care.
Anticipated Discharge: 24 - 48 hours
Subjective/Interval History
-
Date of Service: May 09, 2025
denies nausea
Objective Data
-
Labs:
Laboratory Results
05/09/25 05/09/25
05:40 20:00
WBC 4.6 L
Hgb 7.8 L Pending
Hct 23.2 L Pending
Plt Count 106 L
PT 30.5 H
INR 2.93
Sodium 132 L
Potassium 4.3
Chloride 105
Carbon Dioxide 26
BUN 40 H
Creatinine 1.8 H
Glucose 140 H
Calcium 8.3 L
Vital Signs:
Vital Signs
Temp Pulse Resp BP Pulse Ox
98.2 F 61 16 116/41 100
05/09/25 07:20 05/09/25 07:20 05/09/25 07:20 05/09/25 07:20 05/09/25 07:20
I&O
05/08/25 05/09/25 05/10/25
06:59 06:59 06:59
Intake Total 720 / 720 500 / 500
Output Total 240 / 240 600 / 600
Balance 480 / 480 -600 / -600 500 / 500
[2025-05-09] MEDS: CYANOCOBALAMIN 1000 MCG IM (12:09)
[2025-05-09] MEDS: NOVOLOG FLEXPEN-LOW RESISTANCE 2 UNITS SC (12:10)
[2025-05-09] MEDS: FERRLECIT 110 MG IV (13:04)
[2025-05-09 15:00] VITALS: BP 108/48
[2025-05-09 17:26] LABS: Glucose - Point of Care 196 mg/dl (70-99)
[2025-05-09] MEDS: NOVOLOG FLEXPEN-LOW RESISTANCE 1 UNITS SC (17:51)
[2025-05-09 20:08] LABS: Hematocrit 27.0 % (39.0-52.0); Hemoglobin 8.6 g/dL (13.0-18.0)
[2025-05-09 21:42] LABS: Glucose - Point of Care 184 mg/dl (70-99)
[2025-05-09] MEDS: TOPROL XL 50 MG PO (22:03)
[2025-05-09] MEDS: TRUSOPT 2% OPHTHALMIC SOLUTION 1 DROP OPHTH (22:04)
[2025-05-09 23:00] VITALS: BP 111/49
[2025-05-10] MEDS: TYLENOL 650 MG PO ×5 (04:57→20:21)
[2025-05-10 06:00] VITALS: BMI 25.6
[2025-05-10 07:00] VITALS: BP 113/45
[2025-05-10 07:09] LABS: INR 1.65; PT 19.7 Sec (11.4-14.6)
[2025-05-10 07:31] LABS: Blood Urea Nitrogen 31 mg/dl (9-20); Calcium 8.5 mg/dl (8.4-10.2); Carbon Dioxide 26 mmol/L (22-30); Chloride 106 mmol/L (98-107); Estimated Creatinine Clearance 46 ml/min; Glucose 121 mg/dl (70-99); Potassium 4.3 mmol/L (3.5-5.1); Sodium 136 mmol/L (135-145); eGFR 51.45
[2025-05-10 07:41] LABS: Glucose - Point of Care 128 mg/dl (70-99)
[2025-05-10] MEDS: NOVOLOG FLEXPEN-LOW RESISTANCE SC (07:59)
[2025-05-10 08:12] LABS: Hematocrit 23.3 % (39.0-52.0); Hemoglobin 7.9 g/dL (13.0-18.0); Mean Corp Hgb Conc. 33.9 g/dL (33.0-37.0); Mean Corpuscular Volume 92.1 fL (80.0-94.0); Nucleated Red Blood Cells % 0 % (-); Platelet Count 126 10^3/uL (130-400); Red Cell Dist. Width 13.7 % (11.5-14.5)
[2025-05-10] MEDS: SENOKOT 17.2 MG PO ×2 (08:21→20:21)
[2025-05-10] MEDS: ACTOS 15 MG PO (08:22)
[2025-05-10] MEDS: CYANOCOBALAMIN 1000 MCG IM (08:22)
[2025-05-10] MEDS: COLACE 100 MG PO ×2 (08:22→20:20)
[2025-05-10] MEDS: PRED FORTE 1% EYE DROPS 1 DROP OPHTH ×2 (08:23→20:22)
[2025-05-10] MEDS: ASPIR LOW (ENTERIC COATED) 81 MG PO (08:24)
[2025-05-10] MEDS: ROXICODONE 5 MG PO (09:54)
[2025-05-10 10:57] VITALS: BP 122/50; BP 133/50; BP 73/37; BP 95/47; PULSE 70; PULSE 74; PULSE 85; O2SAT 100
[2025-05-10 11:53] LABS: Glucose - Point of Care 226 mg/dl (70-99)
[2025-05-10] MEDS: NOVOLOG FLEXPEN-LOW RESISTANCE 2 UNITS SC ×2 (11:55→17:13)
[2025-05-10] MEDS: MIRALAX 17 GRAMS PO (12:01)
--- NOTE | 2025-05-10 12:01 | W.PN.HOSP.TC ---
Today's Communication/Plan
-
Resume warfarin tonight, IV heparin if okay with orthopedics
Monitor hemoglobin
Bowel regimen
Assessment / Plan
Assessment / Plan
General: Well Developed, Well Nourished and No Apparent Distress
HEENT: NormoCephalic, Moist mucous membranes and Atraumatic
Respiratory: Clear
Cardiac: S1/S2 and Regular Rhythm; No Murmur or Rub
GI: Soft, Non Tender, Non Distended and Normal Bowel Sounds
Musculoskeletal: No Edema and LLE surgical wound
Neuro: AO x 3 and Nonfocal/grossly intact
Psych: Calm
Acute traumatic left Hip fracture -secondary to mechanical fall
s/p OR 05/08 by ortho
- Pain control
- Monitoring for urinary retention
PT rec SNF
ortho following
Orthostatic hypotension
Gentle hydration
Midodrine. Add compression stockings.
Acute on chronic anemia -likely secondary to acute blood loss from surgery
Hemoglobin down to 7.9. Admission hemoglobin 11.8. MCV normal.
Low normal vitamin B12 level, continue repletion orally.
Iron panel not entirely consistent with iron deficiency anemia.
Paroxysmal atrial fibrillation -INR now subtherapeutic, resume warfarin tonight.
According to family, patient takes warfarin 2.5 mg on Saturday, Saturday, Saturday. 5 mg all other days.
Acute left popliteal DVT -nonocclusive. INR subtherapeutic on admission, 1.6. Suspect noncompliance with warfarin use at home.
INR 1.65 today. Would use IV heparin bridge back to warfarin if okay with orthopedics.
History of left carotid stenosis status post left CEA
CHFrEF -appears euvolemic
- Continue metoprolol as above
- Patient on as needed torsemide, on hold for now. Monitor clinical status closely
follows up with Dr Sarmiento outpatient
CAD -stable.
aspirin 81
VAISHALI on CKD 3A -VAISHALI present on admission. Initial creatinine 1.9. Possibly due to volume depletion, prerenal azotemia noted.
Now renal function appears at baseline, creatinine 1.4.
Monitor
Hyperlipidemia -atorvastatin.
DM 2 without hyperglycemia -hemoglobin A1c 6.6% in February. Glucose 121 this morning. At home he is on pioglitazone 15 mg daily, metformin 500 mg daily.
Currently on pioglitazone, low resistance aspart scale.
Probably should discontinue further metformin use given CKD.
DVT prophylaxis -Coumadin
Full code
Dispo -SNF when medically stable.
Anticipated Discharge: 24 - 48 hours
Subjective/Interval History
-
Date of Service: May 10, 2025
Patient seen/examined, no complaints.
Objective Data
-
Labs:
Laboratory Results
05/10/25
06:30
WBC 4.4 L
Hgb 7.9 L
Hct 23.3 L
Plt Count 126 L
PT 19.7 H
INR 1.65
Sodium 136
Potassium 4.3
Chloride 106
Carbon Dioxide 26
BUN 31 H
Creatinine 1.4 H
Glucose 121 H
Calcium 8.5
Vital Signs:
Vital Signs
Temp Pulse Resp BP Pulse Ox
98.6 F 62 16 113/45 100
05/10/25 07:00 05/10/25 08:22 05/10/25 07:00 05/10/25 08:22 05/10/25 07:00
I&O
05/09/25 05/10/25 05/11/25
06:59 06:59 06:59
Intake Total 1570 / 1570
Output Total 600 / 600 1045 / 1045
Balance -600 / -600 525 / 525
Review of Systems
-
History Source: Patient
All other systems: Reviewed and negative
[2025-05-10] MEDS: FERRLECIT 110 MG IV (12:51)
[2025-05-10 13:05] LABS: Hematocrit 24.3 % (39.0-52.0); Hemoglobin 8.2 g/dL (13.0-18.0); Mean Corp Hgb Conc. 33.7 g/dL (33.0-37.0); Mean Corpuscular Volume 93.8 fL (80.0-94.0); Platelet Count 130 10^3/uL (130-400); Red Cell Dist. Width 13.7 % (11.5-14.5)
[2025-05-10 13:11] LABS: APTT 54.4 Sec (23.4-35.0)
--- NOTE | 2025-05-10 14:14 | CM ---
POD #3 Left intertrochanteric femur fracture, Left hip intramedullary nail. WBAT LLE, following HGB, IV heparin. Discharge POC: Therapy rec for SNF. [employer] list explained and provided, requested 4 preferences.
[2025-05-10] MEDS: HEPARIN 25000 UNITS/250 ML IV (14:42)
[2025-05-10 15:00] VITALS: BP 130/49
[2025-05-10 16:32] LABS: Glucose - Point of Care 224 mg/dl (70-99)
[2025-05-10] MEDS: COUMADIN 4 MG PO (18:32)
[2025-05-10 20:53] LABS: Glucose - Point of Care 172 mg/dl (70-99)
[2025-05-10 22:01] LABS: APTT > 200 Sec (23.4-35.0)
[2025-05-10] MEDS: TOPROL XL PO (22:15)
[2025-05-10] MEDS: TRUSOPT 2% OPHTHALMIC SOLUTION 1 DROP OPHTH (22:30)
[2025-05-10 23:18] VITALS: BP 134/64
[2025-05-11] MEDS: TYLENOL 650 MG PO ×5 (00:19→23:35)
[2025-05-11] MEDS: ZOFRAN 4 MG IV (03:57)
[2025-05-11] MEDS: TYLENOL PO ×2 (04:02→11:05)
--- NOTE | 2025-05-11 05:09 | PTCARENOTE ---
b/p 120/64 hr 82 per order Hold toprol xl
[2025-05-11 05:11] LABS: APTT > 200 Sec (23.4-35.0)
--- NOTE | 2025-05-11 05:11 | PTCARENOTE ---
PTT >200 he started his 4mg of coumadin will follow protocol, SBAR to collections technician ortho .Orders continue heparin protocol, follow up am ortho and Dr who started heparin therapy to reassess.
--- NOTE | 2025-05-11 05:20 | PTCARENOTE ---
0500 PTT >200 PHOTOGRAPH ENLARGER made aware, continue to follow protocol per bundle person orth
[2025-05-11 06:00] VITALS: BMI 25.2
--- NOTE | 2025-05-11 07:06 | PTCARENOTE ---
pt continues on heparin drip,I reached out to manager operational ortho and I was to continue heparin per protocol his PTT has been > 200 at 4am and at 5am. it is on HOLD per heparin protocol until 7am.. pt c/o feeling nauseous at 4am I administered zofran
with little results, is side affect of high PTT nausea, SBAR given to Dr Worley do you want me to restart drip at 7am ? orders to continue heparin per protocol
[2025-05-11 07:19] LABS: Hematocrit 24.0 % (39.0-52.0); Hemoglobin 8.0 g/dL (13.0-18.0); Mean Corp Hgb Conc. 33.3 g/dL (33.0-37.0); Mean Corpuscular Volume 90.9 fL (80.0-94.0); Nucleated Red Blood Cells % 0 % (-); Platelet Count 144 10^3/uL (130-400); Red Cell Dist. Width 13.9 % (11.5-14.5)
[2025-05-11 07:30] LABS: INR 1.42; PT 17.6 Sec (11.4-14.6)
[2025-05-11 07:35] VITALS: BP 143/54
[2025-05-11 08:03] LABS: Glucose - Point of Care 170 mg/dl (70-99)
--- NOTE | 2025-05-11 08:19 | PTCARENOTE ---
Pt still c/o nausea, will give Po meds when pt is able to tolerate.
[2025-05-11] MEDS: PRED FORTE 1% EYE DROPS 1 DROP OPHTH ×2 (08:50→20:44)
[2025-05-11] MEDS: NOVOLOG FLEXPEN-LOW RESISTANCE SC (11:01)
[2025-05-11 11:51] LABS: Glucose - Point of Care 191 mg/dl (70-99)
[2025-05-11] MEDS: VITAMIN B-12 1000 MCG PO (12:08)
[2025-05-11] MEDS: ACTOS 15 MG PO (12:08)
[2025-05-11] MEDS: ASPIR LOW (ENTERIC COATED) 81 MG PO (12:09)
[2025-05-11] MEDS: PROTONIX 40 MG PO (12:09)
[2025-05-11] MEDS: COLACE PO (12:21)
[2025-05-11] MEDS: SENOKOT PO (12:21)
[2025-05-11] MEDS: MIRALAX PO (12:21)
--- NOTE | 2025-05-11 13:03 | W.PN.HOSP.TC ---
Today's Communication/Plan
-
Add Protonix
Antiemetics
IV heparin
Warfarin
Check labs in the morning
Assessment / Plan
Assessment / Plan
General: Well Developed, Well Nourished and No Apparent Distress
HEENT: NormoCephalic, Moist mucous membranes and Atraumatic
Respiratory: Clear
Cardiac: S1/S2 and Regular Rhythm; No Murmur or Rub
GI: Soft, Non Tender, Non Distended and Normal Bowel Sounds
Musculoskeletal: No Edema and LLE surgical wound
Neuro: AO x 3 and Nonfocal/grossly intact
Psych: Calm
Nausea -unclear etiology. Did have a bowel movement last night. Does not appear to be related to oxycodone administration as the last dose was given at 10 AM 05/10.
Continue antiemetics. Add Protonix.
Acute traumatic left Hip fracture -secondary to mechanical fall
Underwent successful left hip intramedullary nail, 05/07.
- Pain control
- Monitoring for urinary retention
PT rec SNF
Orthopedic service has signed off.
Orthostatic hypotension -continue teds, midodrine. Recheck orthostatics.
Acute on chronic anemia -likely secondary to acute blood loss from surgery
Hemoglobin stable at 8.0 today. Admission hemoglobin 11.8. MCV normal.
Low normal vitamin B12 level, continue repletion orally.
Iron panel not entirely consistent with iron deficiency anemia.
Paroxysmal atrial fibrillation -continue IV heparin, warfarin. INR 1.4 today.
According to family, patient takes warfarin 2.5 mg on Saturday, Saturday, Saturday. 5 mg all other days.
Acute left popliteal DVT -nonocclusive. INR subtherapeutic on admission, 1.6. Suspect noncompliance with warfarin use at home.
Continue heparin IV as bridge to warfarin.
If hemoglobin remains stable going into tomorrow, can potentially transition to Lovenox/warfarin bridge and discharged to rehab with goal of therapeutic INR and subsequent discontinuation of Lovenox.
History of left carotid stenosis status post left CEA
CHFrEF -appears euvolemic
- Continue metoprolol as above
- Patient on as needed torsemide, on hold for now. Monitor clinical status closely
follows up with Dr Sarmiento outpatient
CAD -stable.
aspirin 81
VAISHALI on CKD 3A -VAISHALI present on admission. Initial creatinine 1.9. Possibly due to volume depletion, prerenal azotemia noted.
Now renal function appears at baseline, creatinine 1.4.
Monitor
Hyperlipidemia -atorvastatin.
DM 2 without hyperglycemia -hemoglobin A1c 6.6% in February. Glucose 170 this morning. At home he is on pioglitazone 15 mg daily, metformin 500 mg daily.
Currently on pioglitazone, low resistance aspart scale.
Probably should discontinue further metformin use given CKD.
DVT prophylaxis -Coumadin
Full code
Dispo -SNF when medically stable. Awaiting stability of hemoglobin levels.
Updated patient's on the phone. All questions answered.
Anticipated Discharge: Within 24 hours
Subjective/Interval History
-
Date of Service: May 11, 2025
Patient seen and examined, complaining of nausea.
Objective Data
-
Labs:
Laboratory Results
05/11/25 05/11/25 05/11/25
04:10 06:29 12:59
WBC 4.5 L
Hgb 8.0 L
Hct 24.0 L
Plt Count 144
PT 17.6 H
INR 1.42
APTT > 200 H* Pending
Vital Signs:
Vital Signs
Temp Pulse Resp BP Pulse Ox
98.5 F 74 16 143/54 100
05/11/25 07:35 05/11/25 07:35 05/11/25 07:35 05/11/25 07:35 05/11/25 07:35
I&O
05/10/25 05/11/25 05/12/25
06:59 06:59 06:59
Intake Total 1570 / 1570 1200 / 1200
Output Total 1045 / 1045 800 / 800 400 / 400
Balance 525 / 525 400 / 400 -400 / -400
Review of Systems
-
History Source: Patient
All other systems: Reviewed and negative
[2025-05-11 13:17] LABS: APTT 114.8 Sec (23.4-35.0)
[2025-05-11] MEDS: FERRLECIT 110 MG IV (13:54)
[2025-05-11] MEDS: HEPARIN 25000 UNITS/250 ML IV (14:05)
[2025-05-11 14:15] VITALS: BP 107/60; BP 73/68; PULSE 101; PULSE 83
[2025-05-11] MEDS: NOVOLOG FLEXPEN-LOW RESISTANCE 1 UNITS SC (14:17)
[2025-05-11 14:44] LABS: Transferrin 165 mg/dL (200-360)
[2025-05-11 15:05] VITALS: BP 123/72
--- NOTE | 2025-05-11 15:30 | CM ---
Addendum entered by Piedad Blanton 05/11/25 16:13:
[facility] able to offer bed
Original Note:
CM reviewed pt with attending- ADC tomorrow
Bedside meeting with pt to review dc planning
SNF referalls sent via [facility] to 1).[facility] 2).[facility] 3). [facility] or [facility]
Pt is POD#4 L ORIF hip
Pt has qualifying stay
Discharge Disposition- SNF
[2025-05-11 17:10] LABS: Glucose - Point of Care 206 mg/dl (70-99)
[2025-05-11] MEDS: NOVOLOG FLEXPEN-LOW RESISTANCE 2 UNITS SC (17:24)
[2025-05-11] MEDS: COUMADIN 4 MG PO (17:25)
[2025-05-11] MEDS: COLACE 100 MG PO (20:43)
[2025-05-11] MEDS: SENOKOT 17.2 MG PO (20:43)
[2025-05-11 21:17] LABS: APTT 190.6 Sec (23.4-35.0)
[2025-05-11 22:07] LABS: Glucose - Point of Care 178 mg/dl (70-99)
[2025-05-11] MEDS: TOPROL XL 50 MG PO (22:45)
[2025-05-11] MEDS: TRUSOPT 2% OPHTHALMIC SOLUTION 1 DROP OPHTH (22:45)
[2025-05-11 23:30] VITALS: BP 115/46
[2025-05-12] VITALS (9 sets, daily range): BP systolic 73–137; BP diastolic 41–60; PULSE 68–81; O2SAT 99; BMI 25.4
[2025-05-12] MEDS: TYLENOL 650 MG PO ×5 (04:00→20:22)
[2025-05-12 05:02] LABS: APTT 82.1 Sec (23.4-35.0)
[2025-05-12 05:17] LABS: Blood Urea Nitrogen 25 mg/dl (9-20); Calcium 8.7 mg/dl (8.4-10.2); Carbon Dioxide 28 mmol/L (22-30); Chloride 104 mmol/L (98-107); Estimated Creatinine Clearance 46 ml/min; Glucose 119 mg/dl (70-99); Potassium 4.2 mmol/L (3.5-5.1); Sodium 134 mmol/L (135-145); eGFR 51.45
[2025-05-12 05:56] LABS: Hematocrit 19.6 % (39.0-52.0); Hemoglobin 6.6 g/dL (13.0-18.0); Mean Corp Hgb Conc. 33.7 g/dL (33.0-37.0); Mean Corpuscular Volume 91.2 fL (80.0-94.0); Nucleated Red Blood Cells % 0 % (-); Platelet Count 137 10^3/uL (130-400); Red Cell Dist. Width 13.9 % (11.5-14.5)
[2025-05-12 07:05] LABS: Hematocrit 21.6 % (39.0-52.0); Hemoglobin 7.2 g/dL (13.0-18.0)
[2025-05-12 08:12] LABS: Glucose - Point of Care 120 mg/dl (70-99)
[2025-05-12] MEDS: NOVOLOG FLEXPEN-LOW RESISTANCE SC (08:17)
[2025-05-12] MEDS: COLACE 100 MG PO ×2 (08:26→20:21)
[2025-05-12] MEDS: ASPIR LOW (ENTERIC COATED) 81 MG PO (08:26)
[2025-05-12] MEDS: PROTONIX 40 MG PO ×2 (08:26→20:22)
[2025-05-12] MEDS: VITAMIN B-12 1000 MCG PO (08:27)
[2025-05-12] MEDS: PRED FORTE 1% EYE DROPS 1 DROP OPHTH ×2 (08:27→20:21)
[2025-05-12] MEDS: MIRALAX 17 GRAMS PO (08:27)
[2025-05-12] MEDS: ACTOS 15 MG PO (08:27)
[2025-05-12] MEDS: SENOKOT 17.2 MG PO ×2 (08:27→20:21)
--- NOTE | 2025-05-12 09:00 | PN.CDI ---
CDI
- -
CDI:
Physician Documentation Request
Admit Date: 05/06/25 22:25
Dear Doctor Kp,
Patient admitted with acute traumatic left hip fracture.
H&P,'Patient reports walking from his vehicle into his house with to grocery bags in each hand when due to poor vision in the reduced lighting environment he did not see a step and then tripped over and fell landing towards his left side.
05/06 Left Femur X-ray,'There is bony mineralization.'
05/06 Pelvic X -ray, 'There is bony demineralization.'
05/11 PN, 'Acute traumatic left hip fracture -secondary to mechanical fall...left hip intramedullary nail...'
Please provide in your note the likely etiology/ etiologies of the documented left hip fracture:
Multifactorial due to low level mechanical fall and osteoporosis
Low level mechanical fall only
Other
Use of terms such as suspected, likely, concern for, or probable (associated with a specific diagnosis that is being evaluated, monitored, or treated as if it exists) are acceptable and can be coded in the inpatient setting, when documented at the
time of discharge.
Thank you,
Alia SERVIN,RN,CCDS
CDI Specialist
Available via [place] text
Please use your independent medical judgment in providing your response.
[2025-05-12 10:47] LABS: APTT 75.4 Sec (23.4-35.0)
[2025-05-12 11:06] LABS: ALT (SGPT) 19 U/L (0-50); AST (SGOT) 31 U/L (17-59); Albumin 3.1 g/dl (3.5-5.0); Alkaline Phosphatase 109 U/L (38-126); Total Protein 5.8 g/dl (6.3-8.2)
--- NOTE | 2025-05-12 11:07 | W.PN.HOSP.TC ---
Today's Communication/Plan
-
Transfuse
Stop anticoagulation
Monitor hemoglobin
Heme check stools
GI consult
Assessment / Plan
Assessment / Plan
General: Well Developed, Well Nourished and No Apparent Distress
HEENT: NormoCephalic, Moist mucous membranes and Atraumatic
Respiratory: Clear
Cardiac: S1/S2 and Regular Rhythm; No Murmur or Rub
GI: Soft, Non Tender, Non Distended and Normal Bowel Sounds
Musculoskeletal: No Edema and LLE surgical wound
Neuro: AO x 3 and Nonfocal/grossly intact
Psych: Calm
Nausea -unclear etiology. Continue Protonix, antiemetics. Did have epigastric abdominal pain and burning today with breakfast so he stopped eating.
Given worsening anemia and above complaints will consult gastroenterology. Unclear if he has gastritis, peptic ulcer disease, other etiology.
Last stool was recorded as brown from yesterday.
Acute traumatic left Hip fracture -secondary to mechanical fall and osteoporosis.
Underwent successful left hip intramedullary nail, 05/07.
- Pain control
- Monitoring for urinary retention
PT rec SNF
Orthopedic service has signed off.
Orthostatic hypotension -continue teds, midodrine. Recheck orthostatics.
Acute on chronic anemia -likely secondary to acute blood loss from surgery. No evidence of hemolysis.
Hemoglobin unfortunately down to 6.6 earlier this morning, repeat 7.2. No obvious bleeding but will transfuse 1 unit of blood today.
Heme check stools.
Low normal vitamin B12 level, continue repletion orally.
Iron panel not entirely consistent with iron deficiency anemia.
Hyponatremia -134. Monitor for now.
Paroxysmal atrial fibrillation -discontinue IV heparin and warfarin given worsening anemia while we work up any potential bleeding. Discussed with patient, , nurse.
According to family, at home patient takes warfarin 2.5 mg on Saturday, Saturday, Saturday. 5 mg all other days.
Acute left popliteal DVT -nonocclusive, noted on ultrasound dated 05/08/2025.
INR subtherapeutic on admission, 1.6. Suspect noncompliance with warfarin use at home.
Hold anticoagulation as above due to worsening anemia..
History of left carotid stenosis status post left CEA
CHFrEF -appears euvolemic
- Continue metoprolol as above
- Patient on as needed torsemide, on hold for now. Monitor clinical status closely
follows up with Dr Sarmiento outpatient
CAD -stable.
aspirin 81
VAISHALI on CKD 3A -VAISHALI present on admission. Initial creatinine 1.9. Possibly due to volume depletion, prerenal azotemia noted.
Now renal function appears at baseline, creatinine 1.4.
Monitor
Hyperlipidemia -atorvastatin.
DM 2 without hyperglycemia -hemoglobin A1c 6.6% in February. Glucose 170 this morning. At home he is on pioglitazone 15 mg daily, metformin 500 mg daily.
Currently on pioglitazone, low resistance aspart scale.
Probably should discontinue further metformin use given CKD.
DVT prophylaxis -SCDs.
Full code
Dispo -SNF when medically stable. Awaiting stability of hemoglobin levels.
Updated patient's at the bedside.
Anticipated Discharge: > 48 hours
Subjective/Interval History
-
Date of Service: May 12, 2025
Patient seen and examined. No new complaints.
Objective Data
-
Labs:
Laboratory Results
05/12/25 05/12/25 05/12/25
04:34 06:38 10:30
WBC 3.4 L
Hgb 6.6 L* 7.2 L
Hct 19.6 L* 21.6 L
Plt Count 137
PT Pending
INR Pending
APTT 82.1 H 75.4 H
Sodium 134 L
Potassium 4.2
Chloride 104
Carbon Dioxide 28
BUN 25 H
Creatinine 1.4 H
Glucose 119 H
Calcium 8.7
Total Bilirubin 1.1
AST 31
ALT 19
Alkaline Phosphatase 109
Vital Signs:
Vital Signs
Temp Pulse Resp BP Pulse Ox
97.9 F 61 14 123/58 98
05/12/25 07:20 05/12/25 07:20 05/12/25 07:20 05/12/25 07:20 05/12/25 07:20
I&O
05/11/25 05/12/25 05/13/25
06:59 06:59 06:59
Intake Total 1200 / 1200 180 / 180 480 / 480
Output Total 800 / 800 1700 / 1700
Balance 400 / 400 -1520 / -1520 480 / 480
Review of Systems
-
History Source: Patient
All other systems: Reviewed and negative
--- NOTE | 2025-05-12 11:56 | CM ---
patient seen at bedside
per hospitalist not stable for dc today, anemia, transfuse, GI consult
reviewed SNF options
no bed avail at [facility]
Patient states he is agreeable to [facility] SNF as he has been there in the past
spoke with Leilani - bed available at [facility] Saturday
IMM explained & signed. In chart
PLAN: [facility] SNF when stable
[2025-05-12] MEDS: FERRLECIT 110 MG IV (12:23)
[2025-05-12] MEDS: NOVOLOG FLEXPEN-LOW RESISTANCE 2 UNITS SC (12:27)
[2025-05-12 12:29] LABS: Glucose - Point of Care 231 mg/dl (70-99)
--- NOTE | 2025-05-12 12:45 | CON.GI ---
Addendum entered and electronically signed by Rosie Quinones MD 05/12/25 15:11:
I saw and examined the patient.
The ELECTRICAL JOURNEYMAN's note was reviewed and I agree with the note.
Comment: I saw and examined the patient.
The ELECTRICAL JOURNEYMAN's note was reviewed and I agree with the note.
Comment: This is a 80-year-old male with past medical history as listed below who was on anticoagulation prior to admission with Coumadin who came to the emergency room status post fall on 05/06/2025 and was found to have left intertrochanteric hip
fracture went to the OR on 05/07/2025 and had surgery. He has been noted to have anemia and had a progressive decline in hemoglobin he was 11.8 on admission today 6.6 and we were consulted to rule out a GI bleed. His last bowel movement was about
2 days ago which was brown. He also yesterday had nausea and has been having burning with epigastric discomfort and has been started on pantoprazole. No hematemesis. No reported rectal bleeding or melena. He is never had a colonoscopy or
endoscopy in the past. He was restarted on heparin on 05/10 and Coumadin received 2 doses which are both being held now. He says that his symptoms are actually improved today.
Assessment and plan anemia with drop in hemoglobin gradually from 11.8 on admission to 6.6 today currently has no overt GI blood loss. Anemia initially was probably postop blood loss but given progressive decline will also get a CT abdomen and
pelvis to rule out possible retroperitoneal bleed. He was started on heparin and Coumadin on 05/10 which is now being held and his INR yesterday was 1.42. His bilirubin is normal making hemolysis less likely. He also has been receiving IV iron.
Continue pantoprazole. Has a borderline low B12 level and iron studies are more consistent with anemia of chronic disease. Continue to monitor hemoglobin he is getting blood. He will need an eventual endoscopy and a colonoscopy he has never had
them in the past.
2. He had symptoms of epigastric discomfort with burning and nausea most likely related to probable esophagitis versus PUD or gastritis agree with pantoprazole can increase to twice daily. Will also get a CAT scan of the abdomen and pelvis. His
symptoms have improved. If his symptoms worsen will schedule him for an endoscopy.
Original Note:
Consultation
-
Date/Time Consultation Requested: 05/12/25 1100
Date/Time Consultation Performed: 05/12/25 1145
Requesting Provider: Dr. Goodrich
Performing Provider: Dr. Cheatham/SHAWN Woody
Reason for Consultation: acute anemia, abd pain
Medical History
Chief Complaint / HPI
Chief Complaint: fall
History of Present Illness:
80-year-old male with past medical history of CAD status post CABG, atrial flutter on Coumadin, CHF, PAD, diabetes, BPH, CKD, monoclonal gammopathy (last seen by Dr. Barron 10/2024) presents to the emergency room (05/06/2025) after a fall at home.
Found to have a left intertrochanteric hip fracture. At the time of admission he had a mild pancytopenia. The patient went to the OR on 05/07/2025 and had a left hip intramedullary nail placed. The patient was found to have a nonocclusive
thrombus in the left popliteal vein, Acute on chronic anemia with hemoglobin decreasing from 11.8 on admission dropping down to 6.6. Patient developed nausea last evening with epigastric burning. We are asked to evaluate for the same. The patient
was started on IV iron on 05/09/2025 for 5 days. The patient has not had a bowel movement for 2 days. Although last bowel movement was brown. He had acute onset of nausea on 05/11/2025. This was after eating pancakes. He states that he had a
significant amount of nausea however did not vomit. He also had significant amount of epigastric burning that did resolve. He was started on pantoprazole. His hemoglobin did drop down to 6.6. There is no obvious signs of bleeding. There is no
ecchymosis at the left hip site. He has not had a bowel movement in 2 days. BUN is not increased out of proportion. He was placed on IV heparin on 05/10/2025 this was discontinued. Coumadin was restarted on 05/10/2025(2 doses given, will be held
at the present time). At the present time the patient denies any current fevers, chills, current nausea, vomiting, melena, hematochezia, dysphagia or odynophagia. He has never had an endoscopy or colonoscopy before. No family history of
gastrointestinal malignancy or IBD.
Past Medical History
Past Medical History: Other (CAD status post CABG, atrial flutter, CHF, PAD, diabetes, BPH, CKD, MGUS, Osteomyelitis)
Past Surgical History: Other (CABG, left big toe amputation, CEA,)
Social History
Tobacco: Non-Smoker
Alcohol: None
Drug: None
Personal:
Living: With Family
Employment: Retired
Family History
Family History: Other (No family history of gastrointestinal malignancy or IBD)
Allergies / Home Medications
Allergy/AdvReac Type Severity Reaction Status Date / Time
No Known Allergies Allergy Verified 05/06/25 18:55
�Medication �Instructions �Recorded
metoprolol succinate 50 mg 50 mg PO HS Blood pressure 01/06/19
tablet,extended release 24 hr
atorvastatin 40 mg tablet (Lipitor) 40 mg PO HS High cholesterol 08/11/19
warfarin 5 mg tablet (Jantoven) See Rx Instructions .Route 08/11/19
.COMPLEX Blood clot prevention/tx
aspirin 81 mg tablet,delayed 81 mg PO DAILY Blood clot 01/04/22
release prevention/tx
torsemide 20 mg tablet 20 mg PO DAILY PRN Fluid 01/04/22
retention/Swelling
warfarin 2.5 mg tablet See Rx Instructions .Route 01/04/22
.COMPLEX Blood clot prevention/tx
metformin 500 mg tablet 500 mg PO DAILY 05/07/25
pioglitazone 15 mg tablet (Actos) 15 mg PO DAILY 05/07/25
Review of Systems
-
All other systems: A 12 pt ROS was Negative except as stated above in HPI
Vital Signs
Temp Pulse Resp BP Pulse Ox
97.9 F 61 14 123/58 98
05/12/25 07:20 05/12/25 07:20 05/12/25 07:20 05/12/25 07:20 05/12/25 07:20
Physical Exam
Exam
General: No Apparent Distress
HEENT: Anicteric
Respiratory: Clear (anterior)
Cardiac: Regular Rhythm
Musculoskeletal: No Edema and Other (b/l LE TEDs in place, left hip dressing CDI, no ecchymosis appreciated on the left )
Skin: Warm and Dry
Neuro: AO x 3
Psych: Calm
Results
WBC 3.4 10^3/uL (4.8-10.8) L 05/12/25 04:34
Hgb 7.2 g/dL (13.0-18.0) L 05/12/25 06:38
Hct 21.6 % (39.0-52.0) L 05/12/25 06:38
MCV 91.2 fL (80.0-94.0) 05/12/25 04:34
Plt Count 137 10^3/uL (130-400) 05/12/25 04:34
Absolute Neuts (auto) 2.0 10^3/uL (1.4-6.5) 05/12/25 04:34
PT 17.6 Sec (11.4-14.6) H 05/11/25 06:29
INR 1.42 05/11/25 06:29
APTT 75.4 Sec (23.4-35.0) H 05/12/25 10:30
Sodium 134 mmol/L (135-145) L 05/12/25 04:34
Potassium 4.2 mmol/L (3.5-5.1) 05/12/25 04:34
Chloride 104 mmol/L (98-107) 05/12/25 04:34
Carbon Dioxide 28 mmol/L (22-30) 05/12/25 04:34
BUN 25 mg/dl (9-20) H 05/12/25 04:34
Creatinine 1.4 mg/dL (0.7-1.3) H 05/12/25 04:34
Calcium 8.7 mg/dl (8.4-10.2) 05/12/25 04:34
Total Bilirubin 1.1 mg/dl (0.2-1.3) 05/12/25 10:30
AST 31 U/L (17-59) 05/12/25 10:30
ALT 19 U/L (0-50) 05/12/25 10:30
Alkaline Phosphatase 109 U/L (38-126) 05/12/25 10:30
Diagnostic Image Results:
Prior GI Procedures:
EGD: never
Colonoscopy: never
Assessment / Plan
-
80-year-old male with past medical history of CAD status post CABG, atrial flutter on Coumadin, CHF, PAD, diabetes, BPH, CKD, monoclonal gammopathy (last seen by Dr. Barron 10/2024) presents to the emergency room (05/06/2025) after a fall at home.
Found to have a left intertrochanteric hip fracture. At the time of admission he had a mild pancytopenia. The patient went to the OR on 05/07/2025 and had a left hip intramedullary nail placed. The patient was found to have a nonocclusive
thrombus in the left popliteal vein, Acute on chronic anemia with hemoglobin decreasing from 11.8 on admission dropping down to 6.6. Patient developed nausea last evening with epigastric burning. We are asked to evaluate for the same.The patient
presented with a hemoglobin of 11.8 dropped down to 6.6, no acute signs of GI bleeding however last bowel movement 2 days ago. BUN is not increased out of proportion. However did develop nausea on 05/11/2026. Had epigastric burning associated
with breakfast that resolved with PPI. Patient has never had endoscopy or colonoscopy before. Started on heparin drip 05/10/2025. Also started on Coumadin same day. Both discontinued this morning secondary to drop in hemoglobin. WBC 3.4,
hemoglobin 7.2, hematocrit 21.6, platelet 137, MCV 91.2, MCH 30.7 BUN 25, creatinine 1.4, total bilirubin 1.1, direct bilirubin 0.3, AST 31, ALT 19, alk phos 109, Iron 30, TIBC 247, percent iron saturation 12, transferrin 165, ferritin 65.5, B12
245, folate 5.4
Impression:
Acute on chronic anemia-> Hemoglobin 11.8 dropped down to 6.6
--> mixed picture with some iron deficiency, low B12, likely AOCD as well as acute blood loss from hip fx.
Nausea -> improved
Epigastric burning-> resolved
Left hip fracture status post left hip intramedullary nail 05/07/2025
Paroxysmal A-fib/A-flutter-> anticoagulation with Coumadin, on hold
Nonocclusive thrombus left popliteal vein
CKD
MGUS (last seen Dr. Barron 10/2024)
Plan:
-Check CT Abd/Pelvis with oral contrast only given fall on AC, nausea, pain and drop in Hgb, cannot have IV secondary to renal fxn
-On PPI
-Transfuse as ordered
-Trend Hgb
-Continue current solid diet
-Stool for OB pending, would not be suprised if this was positive given chronically AC
-Call with signs of active GI bleeding, would need Nuc Med bleeding scan given renal function
-Consider Heme consult (patient known to Dr. Barron) for hx of MGUS if with worsening issues or no source identified
-Further recommendations to be forcoming
-
-
Thank you for consultation and allowing me to participate in the patient's care. Please call the detention deputy GI physician during the after hours with any questions or concerns.
[2025-05-12] MEDS: OMNIPAQUE 50 ML PO (13:44)
[2025-05-12 15:48] LABS: Lipase 37 U/L (23-300)
--- NOTE | 2025-05-12 16:08 | PTCARENOTE ---
Left hip dressing with moderate amount of drainage. Dressing is leaking. Dressing changed per physician order and physician made aware.
[2025-05-12 17:02] LABS: Glucose - Point of Care 158 mg/dl (70-99)
[2025-05-12] MEDS: NOVOLOG FLEXPEN-LOW RESISTANCE 1 UNITS SC (17:37)
[2025-05-12 21:49] LABS: Glucose - Point of Care 174 mg/dl (70-99)
[2025-05-12] MEDS: TRUSOPT 2% OPHTHALMIC SOLUTION 1 DROP OPHTH (22:38)
[2025-05-12] MEDS: TOPROL XL 50 MG PO (22:40)
[2025-05-13] VITALS (9 sets, daily range): BP systolic 80–141; BP diastolic 42–61; PULSE 69–72; BMI 25.7
[2025-05-13] MEDS: TYLENOL 650 MG PO ×5 (00:39→23:11)
[2025-05-13] MEDS: TYLENOL PO ×2 (04:56→16:24)
[2025-05-13 07:30] LABS: Glucose - Point of Care 120 mg/dl (70-99)
[2025-05-13] MEDS: NOVOLOG FLEXPEN-LOW RESISTANCE SC (07:31)
[2025-05-13 07:50] LABS: ALT (SGPT) 26 U/L (0-50); AST (SGOT) 45 U/L (17-59); Albumin 3.1 g/dl (3.5-5.0); Alkaline Phosphatase 165 U/L (38-126); Blood Urea Nitrogen 27 mg/dl (9-20); Calcium 9.2 mg/dl (8.4-10.2); Carbon Dioxide 29 mmol/L (22-30); Chloride 105 mmol/L (98-107); Estimated Creatinine Clearance 46 ml/min; Glucose 116 mg/dl (70-99); Potassium 4.4 mmol/L (3.5-5.1); Sodium 135 mmol/L (135-145); Total Protein 6.0 g/dl (6.3-8.2); eGFR 51.45
[2025-05-13 07:52] LABS: Hematocrit 25.3 % (39.0-52.0); Hemoglobin 8.5 g/dL (13.0-18.0); Mean Corp Hgb Conc. 33.6 g/dL (33.0-37.0); Mean Corpuscular Volume 92.0 fL (80.0-94.0); Nucleated Red Blood Cells % 0 % (-); Platelet Count 163 10^3/uL (130-400); Red Cell Dist. Width 15.8 % (11.5-14.5)
[2025-05-13] MEDS: COLACE 100 MG PO ×2 (09:45→20:55)
[2025-05-13] MEDS: VITAMIN B-12 1000 MCG PO (09:45)
[2025-05-13] MEDS: MIRALAX 17 GRAMS PO (09:45)
[2025-05-13] MEDS: ACTOS 15 MG PO (09:45)
[2025-05-13] MEDS: ASPIR LOW (ENTERIC COATED) 81 MG PO (09:46)
[2025-05-13] MEDS: PROTONIX 40 MG PO ×2 (09:46→20:55)
[2025-05-13] MEDS: SENOKOT 17.2 MG PO ×2 (09:46→20:55)
[2025-05-13] MEDS: PRED FORTE 1% EYE DROPS 1 DROP OPHTH ×2 (09:51→20:55)
--- NOTE | 2025-05-13 10:20 | W.PN.HOSP.TC ---
Today's Communication/Plan
-
Monitor hemoglobin
PT/OT
Assessment / Plan
Assessment / Plan
General: Well Developed, Well Nourished and No Apparent Distress
HEENT: NormoCephalic, Moist mucous membranes and Atraumatic
Respiratory: Clear
Cardiac: S1/S2 and Regular Rhythm; No Murmur or Rub
GI: Soft, Non Tender, Non Distended and Normal Bowel Sounds
Musculoskeletal: No Edema and LLE surgical wound
Neuro: AO x 3 and Nonfocal/grossly intact
Psych: Calm
Nausea -improved. Continue Protonix, antiemetics.
Acute traumatic left Hip fracture -secondary to mechanical fall and osteoporosis.
Underwent successful left hip intramedullary nail, 05/07.
- Pain control
- Monitoring for urinary retention
PT rec SNF
Orthopedic service has signed off.
Orthostatic hypotension -continue teds, midodrine. Recheck orthostatics.
Acute on chronic anemia, acute blood loss anemia -likely secondary to acute blood loss from surgery, intramuscular hematoma adjacent to the fracture and subcutaneous hematoma as noted on CT.
Hemoglobin improved to 8.5 today. Transfuse 1 unit of blood on 05/12. Holding anticoagulation in light of acute blood loss anemia.
Heme check stools.
Low normal vitamin B12 level, continue repletion orally.
Iron panel not entirely consistent with iron deficiency anemia.
8.4 cm liver mass -indeterminate etiology and noted on CT scan. Will need MRI but cannot do at this point in time given recent gamma nailing of hip. Spoke with orthopedics (Dr. Vasquez), will need to wait 3 months before MRI can be safely done.
Discussed these findings with patient in detail, all questions answered. Informed patient that the mass etiology is unclear, could be benign versus malignant.
In addition, 2.5 cm low-attenuation region in the head of the pancreas noted on CT, MRI in the future can clarify this as well.
Hyponatremia - improved to 135.
Paroxysmal atrial fibrillation -anticoagulation now on hold due to acute blood loss anemia, hematoma.
According to family, at home patient takes warfarin 2.5 mg on Saturday, Saturday, Saturday. 5 mg all other days.
Acute left popliteal DVT -nonocclusive, noted on ultrasound dated 05/08/2025.
INR subtherapeutic on admission, 1.6. Suspect noncompliance with warfarin use at home.
Hold anticoagulation as above due to worsening anemia.
History of left carotid stenosis status post left CEA
CHFrEF -appears euvolemic
- Continue metoprolol as above
- Patient on as needed torsemide, on hold for now. Monitor clinical status closely
follows up with Dr Sarmiento outpatient
CAD -stable.
aspirin 81
VAISHALI on CKD 3A -VAISHALI present on admission. Initial creatinine 1.9. Possibly due to volume depletion, prerenal azotemia noted.
Now renal function appears at baseline, creatinine 1.4.
Monitor
Hyperlipidemia -atorvastatin.
DM 2 without hyperglycemia -hemoglobin A1c 6.6% in February. Glucose 116 this morning. At home he is on pioglitazone 15 mg daily, metformin 500 mg daily.
Currently on pioglitazone, low resistance aspart scale.
Probably should discontinue further metformin use given CKD.
DVT prophylaxis -SCDs.
Full code
Dispo -SNF when medically stable. Awaiting stability of hemoglobin levels.
Anticipated Discharge: 24 - 48 hours
Subjective/Interval History
-
Date of Service: May 13, 2025
Patient seen and examined. No complaints.
Objective Data
-
Labs:
Laboratory Results
05/13/25
07:12
WBC 3.3 L
Hgb 8.5 L
Hct 25.3 L
Plt Count 163
Sodium 135
Potassium 4.4
Chloride 105
Carbon Dioxide 29
BUN 27 H
Creatinine 1.4 H
Glucose 116 H
Calcium 9.2
Total Bilirubin 1.3
AST 45
ALT 26
Alkaline Phosphatase 165 H
Vital Signs:
Vital Signs
Temp Pulse Resp BP Pulse Ox
97.8 F 83 16 120/61 100
05/13/25 07:05 05/13/25 07:05 05/13/25 07:05 05/13/25 07:05 05/13/25 07:05
I&O
05/12/25 05/13/25 05/14/25
06:59 06:59 06:59
Intake Total 180 / 180 730 / 730
Output Total 1700 / 1700 1100 / 1100
Balance -1520 / -1520 -370 / -370
Review of Systems
-
History Source: Patient
All other systems: Reviewed and negative
[2025-05-13 12:26] LABS: Glucose - Point of Care 178 mg/dl (70-99)
--- NOTE | 2025-05-13 13:41 | W.PN.GI.CBS2 ---
Today's Communication / Plan
-
CT shows hematoma around hip fx, likely source for drop in Hgb. No signs of GI bleeding
It also shows 8cm liver lesion and 2.5cm pancreatic head lesion, rec MRI, but pt cannot have until 3 months due to hip surgery
I recommended triple phase CT liver protocol to evaluate when Cr has improved
I left my contact info for pt to f/u in office to arrange CT to better characterize lesions
There was mild liver nodularity but normal spleen, normal LFTs and plt. He is not EtOH abuser. Doubt cirrhosis
Will sign off for now. Please call back if needed
Assessment / Plan
-
80-year-old male with past medical history of CAD status post CABG, atrial flutter on Coumadin, CHF, PAD, diabetes, BPH, CKD, monoclonal gammopathy (last seen by Dr. Barron 10/2024) presents to the emergency room (05/06/2025) after a fall at home.
Found to have a left intertrochanteric hip fracture. At the time of admission he had a mild pancytopenia. The patient went to the OR on 05/07/2025 and had a left hip intramedullary nail placed. The patient was found to have a nonocclusive
thrombus in the left popliteal vein, Acute on chronic anemia with hemoglobin decreasing from 11.8 on admission dropping down to 6.6. Patient developed nausea last evening with epigastric burning. We are asked to evaluate for the same.The patient
presented with a hemoglobin of 11.8 dropped down to 6.6, no acute signs of GI bleeding however last bowel movement 2 days ago. BUN is not increased out of proportion. However did develop nausea on 05/11/2026. Had epigastric burning associated
with breakfast that resolved with PPI. Patient has never had endoscopy or colonoscopy before. Started on heparin drip 05/10/2025. Also started on Coumadin same day. Both discontinued this morning secondary to drop in hemoglobin. WBC 3.4,
hemoglobin 7.2, hematocrit 21.6, platelet 137, MCV 91.2, MCH 30.7 BUN 25, creatinine 1.4, total bilirubin 1.1, direct bilirubin 0.3, AST 31, ALT 19, alk phos 109, Iron 30, TIBC 247, percent iron saturation 12, transferrin 165, ferritin 65.5, B12
245, folate 5.4
CT AP-
Limited in the absence of intravenous contrast.
8.4 cm mass in the central liver, indeterminate on this exam. An MRI abdomen without and with intravenous contrast is recommended for further characterization.
Subtle 2.5 cm region of low-attenuation in the head of the pancreas can also be evaluated at the time of the follow-up MRI.
Colonic diverticulosis.
Moderate volume colonic stool, possibly secondary to constipation.
ORIF of the left intertrochanteric femur fracture. Intramuscular hematoma adjacent to the fracture and two areas of subcutaneous hematoma in the left lateral hip soft tissues.
Impression:
Acute on chronic anemia-> Hemoglobin 11.8 dropped down to 6.6
--> mixed picture with some iron deficiency, low B12, likely AOCD as well as acute blood loss from hip fx.
Nausea -> improved
Epigastric burning-> resolved
Left hip fracture status post left hip intramedullary nail 05/07/2025
Paroxysmal A-fib/A-flutter-> anticoagulation with Coumadin, on hold
Nonocclusive thrombus left popliteal vein
CKD
MGUS (last seen Dr. Barron 10/2024)
Subjective
Subjective
Date of Service: May 13, 2025
No complaints. No BMs but feels the urge.
Objective
Data Reviewed
Laboratory Data:
Laboratory Results
05/13/25 07:12
05/13/25 07:12
Laboratory Results
PT Cancelled 05/12/25 04:34
INR Cancelled 05/12/25 04:34
APTT 75.4 Sec (23.4-35.0) H 05/12/25 10:30
Total Bilirubin 1.3 mg/dl (0.2-1.3) 05/13/25 07:12
AST 45 U/L (17-59) 05/13/25 07:12
ALT 26 U/L (0-50) 05/13/25 07:12
Alkaline Phosphatase 165 U/L (38-126) H 05/13/25 07:12
Lipase 37 U/L (23-300) 05/12/25 04:34
Vital Signs and I&O:
Vital Signs
Temp Pulse Resp BP Pulse Ox
97.8 F 83 16 120/61 100
05/13/25 07:05 05/13/25 07:05 05/13/25 07:05 05/13/25 07:05 05/13/25 07:05
I&O
05/12/25 05/13/25 05/14/25
06:59 06:59 06:59
Intake Total 180 / 180 730 / 730
Output Total 1700 / 1700 1100 / 1100
Balance -1520 / -1520 -370 / -370
Physical Exam
Physical Exam
GI: Soft, Non Distended and Non Tender
[2025-05-13] MEDS: NOVOLOG FLEXPEN-LOW RESISTANCE 1 UNITS SC ×2 (14:06→18:20)
[2025-05-13 15:09] LABS: Urine Character Clear (Clear)
[2025-05-13 15:16] LABS: Urine Squamous Cell 0-2 /LPF (Few); Urine Urothelial Cell 0-2 /LPF (FEW)
[2025-05-13 15:17] LABS: Urine Red Blood Cell 0-2 /HPF (0-2)
[2025-05-13] MEDS: NSS 250 IV (15:20)
[2025-05-13 16:37] LABS: Glucose - Point of Care 177 mg/dl (70-99)
--- NOTE | 2025-05-13 18:44 | PTCARENOTE ---
[facility] 1425 Dr Goodrich notified of patients continued orthostatic hypotension. Pt sitting on edge of bed with PT and BP 80/44. Pt symptomatic- dizzy. Orthostatic signs not completed. IVF Bolus ordered and midodrine dose increased. Post bolus pt BP
121/53. Dr Goodrich notified via TT.
[2025-05-13 22:02] LABS: Glucose - Point of Care 190 mg/dl (70-99)
[2025-05-13] MEDS: TOPROL XL 50 MG PO (23:04)
[2025-05-13] MEDS: TRUSOPT 2% OPHTHALMIC SOLUTION 1 DROP OPHTH (23:05)
[2025-05-13] MEDS: ROXICODONE 5 MG PO (23:11)
[2025-05-14] MEDS: TYLENOL PO ×2 (04:57→11:13)
[2025-05-14 05:56] LABS: Hematocrit 25.3 % (39.0-52.0); Hemoglobin 8.5 g/dL (13.0-18.0); Mean Corp Hgb Conc. 33.6 g/dL (33.0-37.0); Mean Corpuscular Volume 92.0 fL (80.0-94.0); Nucleated Red Blood Cells % 0 % (-); Platelet Count 169 10^3/uL (130-400); Red Cell Dist. Width 16.2 % (11.5-14.5)
[2025-05-14 06:18] LABS: Blood Urea Nitrogen 32 mg/dl (9-20); Calcium 9.2 mg/dl (8.4-10.2); Carbon Dioxide 29 mmol/L (22-30); Chloride 106 mmol/L (98-107); Estimated Creatinine Clearance 43 ml/min; Glucose 126 mg/dl (70-99); Potassium 4.3 mmol/L (3.5-5.1); Sodium 136 mmol/L (135-145); eGFR 47.36
[2025-05-14 07:12] LABS: Glucose - Point of Care 141 mg/dl (70-99)
[2025-05-14 07:35] VITALS: BP 136/51
--- NOTE | 2025-05-14 08:02 | W.PN.HOSP.TC ---
Addendum entered and electronically signed by Jonny Goodrich DO 05/14/25 13:59:
Repeat Doppler ultrasound negative for DVT. Unclear if the DVT embolized. He is not having any signs or symptoms of pulmonary embolism.
Spoke with cardiology and orthopedics. In light of his atrial fibrillation and DVT, plan to resume anticoagulation today with IV heparin and warfarin. Monitor hemoglobin over the weekend.
Updated patient's on the phone. All questions answered.
Original Note:
Today's Communication/Plan
-
Repeat lower extremity venous Doppler ultrasound
Bowel regimen
Monitor hemoglobin
Assessment / Plan
Assessment / Plan
Gen-AAOx3, NAD
HEENT-NC, AT, anicteric, clear oral mm
Neck-supple
CV-reg, no M, +S1/S2
Lungs-clear B/L
Abd-soft, NT, ND
Ext-diffuse left thigh edema
Musculoskeletal-no cyanosis, clubbing
Skin-warm and dry, hematoma surrounding left lateral hip with edema of upper thigh
Neuro-grossly non-focal
Psych-calm, cooperative
Nausea -improved. Continue Protonix, antiemetics.
Acute traumatic left Hip fracture -secondary to mechanical fall and osteoporosis.
Underwent successful left hip intramedullary nail, 05/07.
- Pain control
- Monitoring for urinary retention
PT rec SNF
Orthopedic service has signed off.
Orthostatic hypotension -continue teds, midodrine. Recheck orthostatics. Symptomatic with the drop in blood pressures. Required IV fluid bolus 05/13 with improvement in blood pressure.
Acute on chronic anemia, acute blood loss anemia -likely secondary to acute blood loss from surgery, intramuscular hematoma adjacent to the fracture and subcutaneous hematoma as noted on CT.
Hemoglobin stable at 8.5 again today. Transfuse 1 unit of blood on 05/12. Holding anticoagulation in light of acute blood loss anemia.
Heme check stools.
Low normal vitamin B12 level, continue repletion orally.
Iron panel not entirely consistent with iron deficiency anemia.
8.4 cm liver mass -indeterminate etiology and noted on CT scan. Will need MRI but cannot do at this point in time given recent gamma nailing of hip. Spoke with orthopedics (Dr. Vasquez), will need to wait 3 months before MRI can be safely done.
Discussed these findings with patient in detail, all questions answered. Informed patient that the mass etiology is unclear, could be benign versus malignant.
In addition, 2.5 cm low-attenuation region in the head of the pancreas noted on CT, MRI in the future can clarify this as well.
Hyponatremia -resolved.
Paroxysmal atrial fibrillation -anticoagulation now on hold due to acute blood loss anemia, hematoma.
According to family, at home patient takes warfarin 2.5 mg on Saturday, Saturday, Saturday. 5 mg all other days.
Acute left popliteal DVT -nonocclusive, noted on ultrasound dated 05/08/2025. Given worsening of left lower extremity edema, will repeat ultrasound study.
If DVT appears to have progressed on repeat ultrasound and we still cannot anticoagulate him then may need to consider IVC filter placement.
INR subtherapeutic on admission, 1.6. Suspect noncompliance with warfarin use at home.
Hold anticoagulation as above due to worsening anemia, hematoma.
History of left carotid stenosis status post left CEA
CHFrEF -appears euvolemic
- Continue metoprolol as above
- Patient on as needed torsemide, on hold for now. Monitor clinical status closely
follows up with Dr Sarmiento outpatient
CAD -stable.
aspirin 81
VAISHALI on CKD 3A -VAISHLAI present on admission. Initial creatinine 1.9. Possibly due to volume depletion, prerenal azotemia noted.
Now renal function appears at baseline. Creatinine stable at 1.5.
Monitor
Hyperlipidemia
DM 2 without hyperglycemia -hemoglobin A1c 6.6% in February. Glucose 126 this morning. At home he is on pioglitazone 15 mg daily, metformin 500 mg daily.
Currently on pioglitazone, low resistance aspart scale.
Probably should discontinue further metformin use given CKD.
DVT prophylaxis -SCDs.
Full code
Dispo -SNF when medically stable. Awaiting stability of hemoglobin levels.
Anticipated Discharge: > 48 hours
Subjective/Interval History
-
Date of Service: May 14, 2025
Patient seen and examined, complaining of constipation.
Objective Data
-
Labs:
Laboratory Results
05/14/25
05:34
WBC 3.4 L
Hgb 8.5 L
Hct 25.3 L
Plt Count 169
Sodium 136
Potassium 4.3
Chloride 106
Carbon Dioxide 29
BUN 32 H
Creatinine 1.5 H
Glucose 126 H
Calcium 9.2
Vital Signs:
Vital Signs
Temp Pulse Resp BP Pulse Ox
98.3 F 71 17 141/57 98
05/13/25 23:15 05/13/25 23:15 05/13/25 23:15 05/13/25 23:15 05/13/25 23:15
I&O
05/13/25 05/14/25 05/15/25
06:59 06:59 06:59
Intake Total 730 / 730 970 / 970
Output Total 1100 / 1100 1250 / 1250
Balance -370 / -370 -280 / -280
Review of Systems
-
History Source: Patient
All other systems: Reviewed and negative
--- NOTE | 2025-05-14 08:58 | CM ---
Addendum entered by Genevieve Frank 05/14/25 14:06:
personnel generalist manager received a consult for possible Eliquis pricing and case packer met with patient and later spouse and patient does not have a prescription plan therefore Eliquis is $600 per month, patient made aware, patient and spouse to look into a
prescription plan.
Original Note:
Chart reviewed and plan is skilled placement at [facility], case packer reached out to admissions at [facility] to check on bed availability over weekend, left message.
Plan; Skilled placement at [facility], no Auth required.
[2025-05-14] MEDS: NOVOLOG FLEXPEN-LOW RESISTANCE SC ×2 (09:35→13:00)
[2025-05-14 10:38] VITALS: BP 155/69
[2025-05-14] MEDS: VITAMIN B-12 1000 MCG PO (10:56)
[2025-05-14] MEDS: SENOKOT 17.2 MG PO ×2 (10:57→19:52)
[2025-05-14] MEDS: ASPIR LOW (ENTERIC COATED) 81 MG PO (10:57)
[2025-05-14] MEDS: PROTONIX 40 MG PO ×2 (10:57→19:52)
[2025-05-14] MEDS: ACTOS 15 MG PO (10:57)
[2025-05-14] MEDS: TYLENOL 650 MG PO ×3 (10:57→19:52)
[2025-05-14] MEDS: COLACE 100 MG PO ×2 (10:58→19:52)
[2025-05-14] MEDS: MIRALAX 17 GRAMS PO (10:58)
[2025-05-14] MEDS: PRED FORTE 1% EYE DROPS 1 DROP OPHTH ×2 (11:03→19:52)
[2025-05-14 11:16] VITALS: BP 155/69; O2SAT 98
--- NOTE | 2025-05-14 11:31 | W.PN.UPDATE ---
Update Note
Progress Note Update
The patient was seen and examined by Orthopedic surgery. POD #7 Left Hip CMN 05/07/[address] Ferrer. Orthopedics was asked to re-evaluate the patient for left thigh pain and presence of hematoma about the lateral distal thigh. The patient was
progressing well until a few days ago when he feels he has slightly regressed. Anticoagulation currently on hold per primary team due to acute blood loss anemia and hematoma. Hemoglobin 05/12/2025 - 6.6. Hemoglobin 05/14/2025 - 8.5. He underwent
Doppler ultrasound of the left lower extremity on 05/08/2025, which demonstrated a nonocclusive thrombus within the left popliteal vein. Repeat ultrasound performed this morning did not reveal any evidence of left lower extremity deep venous
thrombosis, as far as visualized; normal compression of the left popliteal vein excludes occlusive thrombus, though there is limited to color-flow and Doppler assessment of the distal popliteal vein due to patient's inability to maintain appropriate
position. Surgical dressings were removed to reveal well-approximated healing surgical incisions with skin clips in place; no active drainage and no erythema. Hematoma present about the proximal and distal lateral thigh. Left lower extremity is
soft and compressible. Gentle logroll tolerated well. He does have some pain with knee flexion. Sensation is intact to light touch. Case discussed with Dr. Goodrich and Dr. Alexis. Suspect hematoma formation from fracture/surgery exacerbated by
anticoagulation use. Fresh Primaseal dressings placed today. An DOUGLAS wrap was applied to the left distal thigh region. Anticipate that the hematomas will reabsorb and gradually improve with time. May also try warm compresses for hematoma. Will
place order for updated femur films for completeness. All questions were answered.
[2025-05-14 12:18] VITALS: BP 100/34; BP 123/54; BP 84/42; PULSE 67; PULSE 68; PULSE 86
[2025-05-14 12:52] LABS: Glucose - Point of Care 158 mg/dl (70-99)
[2025-05-14 14:54] LABS: APTT 49.2 Sec (23.4-35.0)
[2025-05-14 15:15] VITALS: BP 113/56
[2025-05-14] MEDS: HEPARIN 25000 UNITS/250 ML IV (15:35)
[2025-05-14 17:41] LABS: Glucose - Point of Care 248 mg/dl (70-99)
[2025-05-14] MEDS: COUMADIN 4 MG PO (17:42)
[2025-05-14] MEDS: NOVOLOG FLEXPEN-LOW RESISTANCE 2 UNITS SC (17:42)
--- NOTE | 2025-05-14 19:56 | PTCARENOTE ---
Patient able to get oob to stretcher and chair today with 2x assist with walker. His pain is controlled with scheduled Tylenol. He took miralax, senna, Colace today to help aide with bowel movement. Pt states last bm was yesterday, he did not want
to try suppository yet. Heparin bridge to Coumadin began this shift. Surgical dressings re-applied by ortho provider and are c/d/i. Pt and daughter updated on plan of care at bedside.
[2025-05-14] MEDS: TRUSOPT 2% OPHTHALMIC SOLUTION 1 DROP OPHTH (21:27)
[2025-05-14 22:04] LABS: Glucose - Point of Care 237 mg/dl (70-99)
[2025-05-14 22:38] LABS: APTT > 200 Sec (23.4-35.0)
[2025-05-14] MEDS: TOPROL XL 50 MG PO (23:15)
[2025-05-14 23:30] VITALS: BP 156/69
[2025-05-15] MEDS: TYLENOL 650 MG PO ×7 (00:21→23:34)
[2025-05-15 06:39] LABS: INR 2.12; PT 23.9 Sec (11.4-14.6)
[2025-05-15 06:58] LABS: APTT > 200 Sec (23.4-35.0)
[2025-05-15 07:00] VITALS: BP 115/80
[2025-05-15 07:29] LABS: Hematocrit 23.7 % (39.0-52.0); Hemoglobin 8.0 g/dL (13.0-18.0); Mean Corp Hgb Conc. 33.8 g/dL (33.0-37.0); Mean Corpuscular Volume 93.7 fL (80.0-94.0); Nucleated Red Blood Cells % 0 % (-); Platelet Count 177 10^3/uL (130-400); Red Cell Dist. Width 16.6 % (11.5-14.5)
[2025-05-15] MEDS: ACTOS 15 MG PO (07:51)
[2025-05-15] MEDS: VITAMIN B-12 1000 MCG PO (07:51)
[2025-05-15] MEDS: PROTONIX 40 MG PO ×2 (07:52→19:33)
[2025-05-15] MEDS: PRED FORTE 1% EYE DROPS 1 DROP OPHTH ×2 (07:52→19:33)
[2025-05-15] MEDS: SENOKOT 17.2 MG PO ×2 (07:52→19:33)
[2025-05-15] MEDS: COLACE 100 MG PO ×2 (07:52→19:33)
[2025-05-15] MEDS: MIRALAX PO (07:52)
[2025-05-15] MEDS: ASPIR LOW (ENTERIC COATED) 81 MG PO (07:52)
[2025-05-15] MEDS: NOVOLOG FLEXPEN-LOW RESISTANCE SC (07:53)
[2025-05-15 07:54] LABS: Glucose - Point of Care 149 mg/dl (70-99)
[2025-05-15 09:11] LABS: ALT (SGPT) 27 U/L (0-50); AST (SGOT) 39 U/L (17-59); Albumin 3.1 g/dl (3.5-5.0); Alkaline Phosphatase 201 U/L (38-126); Blood Urea Nitrogen 30 mg/dl (9-20); Calcium 8.9 mg/dl (8.4-10.2); Carbon Dioxide 26 mmol/L (22-30); Chloride 104 mmol/L (98-107); Estimated Creatinine Clearance 46 ml/min; Glucose 126 mg/dl (70-99); Potassium 4.1 mmol/L (3.5-5.1); Sodium 134 mmol/L (135-145); Total Protein 6.1 g/dl (6.3-8.2); eGFR 51.45
--- NOTE | 2025-05-15 10:55 | W.PN.HOSP.TC ---
Today's Communication/Plan
-
Continue anticoagulation
Monitor hemoglobin
Continue PT/OT
Assessment / Plan
Assessment / Plan
Gen-AAOx3, NAD
HEENT-NC, AT, anicteric, clear oral mm
Neck-supple
CV-reg, no M, +S1/S2
Lungs-clear B/L
Abd-soft, NT, ND
Ext-diffuse left thigh edema, left knee Everette wrap
Musculoskeletal-no cyanosis, clubbing
Skin-warm and dry, hematoma surrounding left lateral hip with edema of upper thigh
Neuro-grossly non-focal
Psych-calm, cooperative
Nausea -improved. Continue Protonix, antiemetics.
Acute traumatic left Hip fracture -secondary to mechanical fall and osteoporosis.
Underwent successful left hip intramedullary nail, 05/07.
- Pain control
- Monitoring for urinary retention
PT rec SNF
Appreciate orthopedics input.
Orthostatic hypotension -continue teds, midodrine. Midodrine increased to 10 mg 3 times daily on 05/13 evening.
Recheck orthostatics. Symptomatic with the drop in blood pressures. Required IV fluid bolus 05/13 with improvement in blood pressure.
Unfortunately patient only got 1 dose of midodrine on 05/14.
Acute on chronic anemia, acute blood loss anemia -likely secondary to acute blood loss from surgery, intramuscular hematoma adjacent to the fracture and subcutaneous hematoma as noted on CT.
Hemoglobin 8.0 today. Monitor closely.
Transfused 1 unit of blood on 05/12.
Stool heme check negative.
Low normal vitamin B12 level, continue repletion orally.
Iron panel not entirely consistent with iron deficiency anemia.
Pancytopenia -present on admission. Platelet count has now recovered. Unclear etiology for leukopenia.
8.4 cm liver mass -indeterminate etiology and noted on CT scan. Will need MRI but cannot do at this point in time given recent gamma nailing of hip. Spoke with orthopedics (Dr. Vasquez), will need to wait 3 months before MRI can be safely done.
Discussed these findings with patient in detail, all questions answered. Informed patient that the mass etiology is unclear, could be benign versus malignant.
In addition, 2.5 cm low-attenuation region in the head of the pancreas noted on CT, MRI in the future can clarify this as well.
Hyponatremia -134. Monitor for now.
Paroxysmal atrial fibrillation -anticoagulation resumed 05/14.
According to family, at home patient takes warfarin 2.5 mg on Saturday, Saturday, Saturday. 5 mg all other days.
Acute left popliteal DVT -nonocclusive, noted on ultrasound dated 05/08/2025. Interestingly, repeat Doppler ultrasound 05/14 shows no evidence of DVT. Patient has no signs or symptoms of pulmonary embolism.
Back on anticoagulation with IV heparin, warfarin. Monitor closely for any bleeding.
History of left carotid stenosis status post left CEA
CHFrEF -appears euvolemic.
Dr. Mathew is his teleprinter.
CAD -stable.
aspirin 81
VAISHALI on CKD 3A -VAISHALI present on admission. Initial creatinine 1.9. Possibly due to volume depletion, prerenal azotemia noted.
Now renal function appears at baseline. Creatinine stable at 1.4.
Monitor
Hyperlipidemia
DM 2 without hyperglycemia -hemoglobin A1c 6.6% in February. Glucose 126 this morning. At home he is on pioglitazone 15 mg daily, metformin 500 mg daily.
Currently on low resistance aspart scale.
Probably should discontinue further metformin use given CKD.
DVT prophylaxis -SCDs.
Full code
Dispo -SNF when medically stable. Awaiting stability of hemoglobin levels.
Anticipated Discharge: > 48 hours
Subjective/Interval History
-
Date of Service: May 15, 2025
Patient seen and examined, feeling better overall. No new complaints.
Objective Data
-
Labs:
Laboratory Results
05/15/25 05/15/25 05/15/25
06:23 06:51 15:15
WBC 3.4 L
Hgb 8.0 L
Hct 23.7 L
Plt Count 177
PT 23.9 H
INR 2.12
APTT > 200 H* Pending
Sodium 134 L
Potassium 4.1
Chloride 104
Carbon Dioxide 26
BUN 30 H
Creatinine 1.4 H
Glucose 126 H
Calcium 8.9
Total Bilirubin 1.3
AST 39
ALT 27
Alkaline Phosphatase 201 H
Vital Signs:
Vital Signs
Temp Pulse Resp BP Pulse Ox
97.5 F 73 16 115/80 100
05/15/25 07:00 05/15/25 07:00 05/15/25 07:00 05/15/25 07:00 05/15/25 07:00
I&O
05/14/25 05/15/25 05/16/25
06:59 06:59 06:59
Intake Total 970 / 970 1733 / 1733
Output Total 1250 / 1250 1600 / 1600
Balance -280 / -280 133 / 133
Review of Systems
-
History Source: Patient
All other systems: Reviewed and negative
--- NOTE | 2025-05-15 11:24 | W.PN.UPDATE ---
Update Note
Progress Note Update
Patinet POD#8 after IMN left hip fracture with Dr Ferrer. Patient examined today on the floor, states his pain is is improving. His thigh remains soft and compressible with mild pain with ROM. His dressings were outlined yesterday to denote the
expanse of the bleeding, and there has been no increase in bleeding upon dressings. DOUGLAS wrap remain in place over distal thigh and knee. HgB stable. Xrays from yesterday reviewed without concern for new fracture or other acute abnormality.
Orthopaedics to follow peripherally. Care per primary
[2025-05-15 11:43] VITALS: BP 118/44; BP 124/57; BP 95/32; PULSE 63; PULSE 99
--- NOTE | 2025-05-15 12:00 | CM ---
Plan: Discharge to SNF when medically stable
[2025-05-15 12:24] VITALS: BP 118/44; BP 124/57; BP 95/32; PULSE 62; PULSE 65; O2SAT 99
[2025-05-15 12:53] LABS: Glucose - Point of Care 158 mg/dl (70-99)
[2025-05-15] MEDS: NOVOLOG FLEXPEN-LOW RESISTANCE 1 UNITS SC (14:11)
[2025-05-15 15:00] VITALS: BP 124/45
[2025-05-15] MEDS: HEPARIN 25000 UNITS/250 ML IV (15:07)
[2025-05-15 16:01] LABS: APTT 186.4 Sec (23.4-35.0)
[2025-05-15] MEDS: COUMADIN 4 MG PO (17:05)
[2025-05-15 17:13] LABS: Glucose - Point of Care 177 mg/dl (70-99)
[2025-05-15] MEDS: NOVOLOG FLEXPEN-LOW RESISTANCE 300 UNITS SC (17:33)
[2025-05-15] MEDS: TOPROL XL 50 MG PO (21:02)
[2025-05-15] MEDS: TRUSOPT 2% OPHTHALMIC SOLUTION 1 DROP OPHTH (21:02)
[2025-05-15 21:35] LABS: Glucose - Point of Care 167 mg/dl (70-99)
[2025-05-15 23:21] VITALS: BP 156/68
[2025-05-16 00:13] LABS: APTT 129.7 Sec (23.4-35.0)
[2025-05-16] MEDS: TYLENOL PO (04:35)
[2025-05-16 06:09] LABS: Hematocrit 25.3 % (39.0-52.0); Hemoglobin 8.4 g/dL (13.0-18.0); Mean Corp Hgb Conc. 33.2 g/dL (33.0-37.0); Mean Corpuscular Volume 93.7 fL (80.0-94.0); Nucleated Red Blood Cells % 0 % (-); Platelet Count 182 10^3/uL (130-400); Red Cell Dist. Width 16.9 % (11.5-14.5)
[2025-05-16 06:19] LABS: INR 2.27; PT 25.3 Sec (11.4-14.6)
[2025-05-16 06:21] LABS: APTT 91.8 Sec (23.4-35.0)
[2025-05-16 07:00] VITALS: BP 131/55
[2025-05-16 07:41] LABS: Glucose - Point of Care 136 mg/dl (70-99)
[2025-05-16] MEDS: NOVOLOG FLEXPEN-LOW RESISTANCE SC (07:49)
[2025-05-16] MEDS: ACTOS 15 MG PO (07:54)
[2025-05-16] MEDS: PROTONIX 40 MG PO ×2 (07:55→20:12)
[2025-05-16] MEDS: VITAMIN B-12 1000 MCG PO (07:55)
[2025-05-16] MEDS: TYLENOL 650 MG PO ×4 (07:55→19:54)
[2025-05-16] MEDS: COLACE PO (07:55)
[2025-05-16] MEDS: SENOKOT PO (07:55)
[2025-05-16] MEDS: ASPIR LOW (ENTERIC COATED) 81 MG PO (07:55)
[2025-05-16] MEDS: MIRALAX PO (07:55)
[2025-05-16] MEDS: PRED FORTE 1% EYE DROPS 1 DROP OPHTH ×2 (07:55→19:54)
--- NOTE | 2025-05-16 10:41 | W.PN.HOSP.TC ---
Addendum entered and electronically signed by Jonny Goodrich DO 05/16/25 11:17:
Updated patient's on the phone. All questions answered.
Original Note:
Today's Communication/Plan
-
Stop IV heparin
Discharge planning
Assessment / Plan
Assessment / Plan
Gen-AAOx3, NAD
HEENT-NC, AT, anicteric, clear oral mm
Neck-supple
CV-reg, no M, +S1/S2
Lungs-clear B/L
Abd-soft, NT, ND
Ext-diffuse left thigh edema, left knee Everette wrap
Musculoskeletal-no cyanosis, clubbing
Skin-warm and dry, hematoma surrounding left lateral hip with edema of upper thigh
Neuro-grossly non-focal
Psych-calm, cooperative
Nausea -improved. Continue Protonix, antiemetics.
Acute traumatic left Hip fracture -secondary to mechanical fall and osteoporosis.
Underwent successful left hip intramedullary nail, 05/07.
- Pain control
- Monitoring for urinary retention
PT rec SNF
Appreciate orthopedics input.
Orthostatic hypotension -continue teds, midodrine. Midodrine increased to 10 mg 3 times daily on 05/13 evening.
Recheck orthostatics. Symptomatic with the drop in blood pressures. Required IV fluid bolus 05/13 with improvement in blood pressure.
Acute on chronic anemia, acute blood loss anemia -likely secondary to acute blood loss from surgery, intramuscular hematoma adjacent to the fracture and subcutaneous hematoma as noted on CT.
Hemoglobin stable at 8.4 today. Monitor closely.
Transfused 1 unit of blood on 05/12.
Stool heme check negative.
Low normal vitamin B12 level, continue repletion orally.
Iron panel not entirely consistent with iron deficiency anemia.
Pancytopenia -present on admission, unclear etiology. Platelet count has now recovered.
8.4 cm liver mass -indeterminate etiology and noted on CT scan. Will need MRI but cannot do at this point in time given recent gamma nailing of hip. Spoke with orthopedics (Dr. Vasquez), will need to wait 3 months before MRI can be safely done.
Discussed these findings with patient in detail, all questions answered. Informed patient that the mass etiology is unclear, could be benign versus malignant.
In addition, 2.5 cm low-attenuation region in the head of the pancreas noted on CT, MRI in the future can clarify this as well.
Hyponatremia -134. Monitor for now.
Paroxysmal atrial fibrillation -anticoagulation resumed 05/14. INR 2.2 today, IV heparin discontinued. Continue warfarin.
According to family, at home patient takes warfarin 2.5 mg on Saturday, Saturday, Saturday. 5 mg all other days.
Acute left popliteal DVT -nonocclusive, noted on ultrasound dated 05/08/2025. Interestingly, repeat Doppler ultrasound 05/14 shows no evidence of DVT. Patient has no signs or symptoms of pulmonary embolism.
Continue warfarin. Monitor closely for any bleeding.
History of left carotid stenosis status post left CEA
CHFrEF -appears euvolemic.
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
CAD -stable.
aspirin 81
VAISHALI on CKD 3A -VAISHALI present on admission. Initial creatinine 1.9. Possibly due to volume depletion, prerenal azotemia noted.
Now renal function appears at baseline. Creatinine stable at 1.4.
Monitor
Hyperlipidemia
DM 2 without hyperglycemia -hemoglobin A1c 6.6% in February. Glucose 136 this morning. At home he is on pioglitazone 15 mg daily, metformin 500 mg daily.
Currently on low resistance aspart scale.
Probably should discontinue further metformin use given CKD.
DVT prophylaxis -SCDs.
Full code
Dispo -medically stable for discharge to [facility] text sent to case management.
Anticipated Discharge: Within 24 hours
Subjective/Interval History
-
Date of Service: May 16, 2025
Patient seen and examined. No complaints.
Objective Data
-
Labs:
Laboratory Results
05/15/25 05/16/25 05/16/25
23:43 05:59 12:30
WBC 3.1 L
Hgb 8.4 L
Hct 25.3 L
Plt Count 182
PT 25.3 H
INR 2.27
APTT 129.7 H 91.8 H Pending
Vital Signs:
Vital Signs
Temp Pulse Resp BP Pulse Ox
98.7 F 60 16 131/55 100
05/16/25 07:00 05/16/25 07:00 05/16/25 07:00 05/16/25 07:00 05/16/25 07:00
I&O
05/15/25 05/16/25 05/17/25
06:59 06:59 06:59
Intake Total 1733 / 1733 1260 / 1260
Output Total 1600 / 1600 1580 / 1580
Balance 133 / 133 -320 / -320
Review of Systems
-
History Source: Patient
All other systems: Reviewed and negative
[2025-05-16 12:54] LABS: Glucose - Point of Care 155 mg/dl (70-99)
--- NOTE | 2025-05-16 13:10 | CM ---
Addendum entered by Heike Resendiz 05/16/25 14:10:
Met with patient at bedside; agreeable with discharge plan
IMM benefit explained; form signed @ 1410
Original Note:
Per Attending patient is stable for discharge to SNF. Sent update via [facility] to [facility] and [facility] who accepted referrals.
Case Management will follow up in the AM
[2025-05-16] MEDS: NOVOLOG FLEXPEN-LOW RESISTANCE 1 UNITS SC ×2 (13:34→18:16)
[2025-05-16 15:02] VITALS: BP 149/60
[2025-05-16 15:41] VITALS: BP 121/54; BP 130/69; PULSE 61; O2SAT 100
[2025-05-16 16:32] LABS: Glucose - Point of Care 179 mg/dl (70-99)
[2025-05-16] MEDS: COUMADIN 4 MG PO (17:27)
[2025-05-16] MEDS: COLACE 100 MG PO (19:54)
[2025-05-16] MEDS: SENOKOT 17.2 MG PO (19:54)
[2025-05-16 21:56] LABS: Glucose - Point of Care 179 mg/dl (70-99)
[2025-05-16] MEDS: TOPROL XL 50 MG PO (22:29)
[2025-05-16] MEDS: TRUSOPT 2% OPHTHALMIC SOLUTION 1 DROP OPHTH (22:30)
[2025-05-16 23:21] VITALS: BP 150/74
[2025-05-17] MEDS: TYLENOL 650 MG PO ×5 (00:48→20:42)
[2025-05-17 06:32] LABS: Hematocrit 27.4 % (39.0-52.0); Hemoglobin 9.1 g/dL (13.0-18.0); Mean Corp Hgb Conc. 33.2 g/dL (33.0-37.0); Mean Corpuscular Volume 94.5 fL (80.0-94.0); Nucleated Red Blood Cells % 0 % (-); Platelet Count 217 10^3/uL (130-400); Red Cell Dist. Width 17.2 % (11.5-14.5)
[2025-05-17 06:43] LABS: INR 2.44; PT 26.7 Sec (11.4-14.6)
[2025-05-17 07:09] LABS: Blood Urea Nitrogen 29 mg/dl (9-20); Calcium 8.8 mg/dl (8.4-10.2); Carbon Dioxide 31 mmol/L (22-30); Chloride 104 mmol/L (98-107); Estimated Creatinine Clearance 43 ml/min; Glucose 118 mg/dl (70-99); Potassium 4.2 mmol/L (3.5-5.1); Sodium 135 mmol/L (135-145); eGFR 47.36
[2025-05-17] MEDS: NOVOLOG FLEXPEN-LOW RESISTANCE SC (07:14)
[2025-05-17 07:40] VITALS: BP 133/49
[2025-05-17 07:43] LABS: Glucose - Point of Care 124 mg/dl (70-99)
[2025-05-17 09:00] VITALS: BMI 25.8
[2025-05-17] MEDS: VITAMIN B-12 1000 MCG PO (10:19)
[2025-05-17] MEDS: ASPIR LOW (ENTERIC COATED) 81 MG PO (10:20)
[2025-05-17] MEDS: SENOKOT PO (10:20)
[2025-05-17] MEDS: PROTONIX 40 MG PO ×2 (10:20→20:42)
[2025-05-17] MEDS: MIRALAX PO (10:21)
[2025-05-17] MEDS: COLACE PO (10:21)
[2025-05-17] MEDS: ACTOS 15 MG PO (10:21)
[2025-05-17] MEDS: TYLENOL PO (10:21)
[2025-05-17] MEDS: PRED FORTE 1% EYE DROPS 1 DROP OPHTH ×2 (10:39→20:42)
--- NOTE | 2025-05-17 10:48 | CM ---
Patient seen at bedside
PT rec SNF
referrals in [facility] for [facility] & [facility]
Left message for Tete at [facility] regarding bed availability tomorrow
IMM explained & signed. In chart
no pre-auth
PLAN: [facility] SNF, pending bed availabilitiy
[2025-05-17 11:30] VITALS: BP 122/49; BP 84/49; BP 95/42; PULSE 65; PULSE 76; PULSE 90
[2025-05-17 11:48] LABS: Glucose - Point of Care 274 mg/dl (70-99)
--- NOTE | 2025-05-17 12:40 | W.PN.HOSP.TC ---
Today's Communication/Plan
-
Monitor vital signs see plan
Discharge planning
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
Continue with Coumadin
Monitor orthostatics
Assessment / Plan
Assessment / Plan
Gen-AAOx3, NAD
HEENT-NC, AT, anicteric, clear oral mm
Neck-supple
CV-reg, no M, +S1/S2
Lungs-clear B/L
Abd-soft, NT, ND
Ext-diffuse left thigh edema, left knee Everette wrap
Musculoskeletal-no cyanosis, clubbing
Skin-warm and dry, hematoma surrounding left lateral hip with edema of upper thigh
Neuro-grossly non-focal
Psych-calm, cooperative
Nausea -improved. Continue Protonix, antiemetics.
Acute traumatic left Hip fracture -secondary to mechanical fall and osteoporosis.
Underwent successful left hip intramedullary nail, 05/07.
- Pain control
- Monitoring for urinary retention
PT rec SNF
Appreciate orthopedics input.
Orthostatic hypotension -continue teds, midodrine. Midodrine increased to 10 mg 3 times daily on 05/13 evening.
Recheck orthostatics. Symptomatic with the drop in blood pressures. Required IV fluid bolus 05/13 with improvement in blood pressure.
Acute on chronic anemia, acute blood loss anemia -likely secondary to acute blood loss from surgery, intramuscular hematoma adjacent to the fracture and subcutaneous hematoma as noted on CT.
Hemoglobin stable at 8.4 today. Monitor closely.
Transfused 1 unit of blood on 05/12.
Stool heme check negative.
Low normal vitamin B12 level, continue repletion orally.
Iron panel not entirely consistent with iron deficiency anemia.
Pancytopenia -present on admission, unclear etiology. Platelet count has now recovered.
8.4 cm liver mass -indeterminate etiology and noted on CT scan. Will need MRI but cannot do at this point in time given recent gamma nailing of hip. Spoke with orthopedics (Dr. Vasquez), will need to wait 3 months before MRI can be safely done.
Discussed these findings with patient in detail, all questions answered. Informed patient that the mass etiology is unclear, could be benign versus malignant. Patient can follow-up with GI outpatient to decide MRI or CT scan
In addition, 2.5 cm low-attenuation region in the head of the pancreas noted on CT, MRI in the future can clarify this as well.
Hyponatremia
Monitor
Paroxysmal atrial fibrillation -anticoagulation resumed 05/14. INR 2.4 today, IV heparin discontinued. Continue warfarin.
According to family, at home patient takes warfarin 2.5 mg on Saturday, Saturday, Saturday. 5 mg all other days.
Acute left popliteal DVT -nonocclusive, noted on ultrasound dated 05/08/2025. Interestingly, repeat Doppler ultrasound 05/14 shows no evidence of DVT. Patient has no signs or symptoms of pulmonary embolism.
Continue warfarin. Monitor closely for any bleeding.
History of left carotid stenosis status post left CEA
CHFrEF -appears euvolemic.
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
CAD -stable.
aspirin 81
VAISHALI on CKD 3A -VAISHALI present on admission. Initial creatinine 1.9. Possibly due to volume depletion, prerenal azotemia noted.
Now renal function appears at baseline. Creatinine stable at 1.5.
Monitor
Hyperlipidemia
DM 2 without hyperglycemia -hemoglobin A1c 6.6% in February. Glucose 136 this morning. At home he is on pioglitazone 15 mg daily, metformin 500 mg daily.
Currently on low resistance aspart scale.
Probably should discontinue further metformin use given CKD.
DVT prophylaxis -Coumadin
Full code
Dispo -needs SNF, discussed with case management
Anticipated Discharge: Within 24 hours
Subjective/Interval History
-
Date of Service: May 17, 2025
Denies nausea
Objective Data
-
Labs:
Laboratory Results
05/17/25
06:17
WBC 3.3 L
Hgb 9.1 L
Hct 27.4 L
Plt Count 217
PT 26.7 H
INR 2.44
Sodium 135
Potassium 4.2
Chloride 104
Carbon Dioxide 31 H
BUN 29 H
Creatinine 1.5 H
Glucose 118 H
Calcium 8.8
Vital Signs:
Vital Signs
Temp Pulse Resp BP Pulse Ox
97.5 F 76 16 142/58 98
05/17/25 07:40 05/17/25 10:17 05/17/25 07:40 05/17/25 10:17 05/17/25 07:40
I&O
05/16/25 05/17/25 05/18/25
06:59 06:59 06:59
Intake Total 1260 / 1260 840 / 840
Output Total 1580 / 1580 1860 / 1860
Balance -320 / -320 -1020 / -1020
[2025-05-17] MEDS: NOVOLOG FLEXPEN-LOW RESISTANCE 3 UNITS SC (12:47)
[2025-05-17 12:56] VITALS: BP 122/49; BP 84/49; BP 90/54; BP 95/42; PULSE 65; PULSE 76; PULSE 90
[2025-05-17] MEDS: NSS 1000 IV (13:56)
[2025-05-17 15:11] VITALS: BP 136/48
[2025-05-17 17:04] LABS: Glucose - Point of Care 163 mg/dl (70-99)
[2025-05-17] MEDS: COUMADIN 4 MG PO (18:20)
[2025-05-17] MEDS: NOVOLOG FLEXPEN-LOW RESISTANCE 1 UNITS SC (18:21)
[2025-05-17] MEDS: SENOKOT 17.2 MG PO (20:42)
[2025-05-17] MEDS: COLACE 100 MG PO (20:42)
[2025-05-17] MEDS: TRUSOPT 2% OPHTHALMIC SOLUTION 1 DROP OPHTH (22:08)
[2025-05-17] MEDS: TOPROL XL 50 MG PO (22:08)
[2025-05-17 22:33] LABS: Glucose - Point of Care 180 mg/dl (70-99)
[2025-05-17 23:26] VITALS: BP 142/70
[2025-05-17 23:35] VITALS: BP 111/61; BP 140/70; BP 156/82; PULSE 59; PULSE 68; PULSE 87
[2025-05-18] MEDS: TYLENOL PO (00:40)
[2025-05-18] MEDS: TYLENOL 650 MG PO ×3 (04:34→12:19)
[2025-05-18 06:00] VITALS: BMI 25.0
[2025-05-18 06:14] LABS: Hematocrit 27.6 % (39.0-52.0); Hemoglobin 8.9 g/dL (13.0-18.0); INR 2.54; Mean Corp Hgb Conc. 32.2 g/dL (33.0-37.0); Mean Corpuscular Volume 96.8 fL (80.0-94.0); Nucleated Red Blood Cells % 0 % (-); PT 27.5 Sec (11.4-14.6); Platelet Count 233 10^3/uL (130-400); Red Cell Dist. Width 17.5 % (11.5-14.5)
[2025-05-18 06:36] LABS: Blood Urea Nitrogen 29 mg/dl (9-20); Calcium 8.7 mg/dl (8.4-10.2); Carbon Dioxide 29 mmol/L (22-30); Chloride 104 mmol/L (98-107); Estimated Creatinine Clearance 46 ml/min; Glucose 126 mg/dl (70-99); Potassium 4.2 mmol/L (3.5-5.1); Sodium 135 mmol/L (135-145); eGFR 51.45
[2025-05-18] MEDS: NOVOLOG FLEXPEN-LOW RESISTANCE SC (07:30)
[2025-05-18 07:44] LABS: Glucose - Point of Care 151 mg/dl (70-99)
[2025-05-18 08:04] VITALS: BP 138/65
[2025-05-18 08:05] VITALS: BP 105/56; BP 126/50; BP 138/65; PULSE 76; PULSE 79; PULSE 80
[2025-05-18] MEDS: VITAMIN B-12 1000 MCG PO (09:31)
[2025-05-18] MEDS: PROTONIX 40 MG PO (09:31)
[2025-05-18] MEDS: ACTOS 15 MG PO (09:31)
[2025-05-18] MEDS: SENOKOT PO (09:32)
[2025-05-18] MEDS: ASPIR LOW (ENTERIC COATED) 81 MG PO (09:32)
[2025-05-18] MEDS: COLACE 100 MG PO (09:32)
[2025-05-18] MEDS: MIRALAX PO (09:33)
[2025-05-18] MEDS: PRED FORTE 1% EYE DROPS 1 DROP OPHTH (09:33)
--- NOTE | 2025-05-18 10:46 | CM ---
CM reviewed pt with attending- ready for dc today
SNF bed confirmed with [facility] DON
Bedside update to pt- he is in agreement with plan and SNF
IMM verbally reviewed in depth- copy provided
Pt without dc concerns and does not wish to file appeal at this time
CM offered call to spouse- he will update her
Medical necessity completed- [facility] to schedule BLS transport
Discharge Disposition- [facility] via BLS
Phone- [phone] Fax- [phone]
--- NOTE | 2025-05-18 11:19 | W.PN.HOSP.TC ---
Today's Communication/Plan
-
Monitor vital signs and see plan
Discharge today to rehab
Continue with midodrine
Continue with teds
Continue with Coumadin
Monitor INR
Time of discharge 38 minutes
Assessment / Plan
Assessment / Plan
Gen-AAOx3, NAD
HEENT-NC, AT, anicteric, clear oral mm
Neck-supple
CV-reg, no M, +S1/S2
Lungs-clear B/L
Abd-soft, NT, ND
Ext-diffuse left thigh edema, left knee Everette wrap
Musculoskeletal-no cyanosis, clubbing
Skin-warm and dry, hematoma surrounding left lateral hip with edema of upper thigh
Neuro-grossly non-focal
Psych-calm, cooperative
Nausea -improved. Continue Protonix, antiemetics.
Acute traumatic left Hip fracture -secondary to mechanical fall and osteoporosis.
Underwent successful left hip intramedullary nail, 05/07.
- Pain control
- Monitoring for urinary retention
PT rec SNF
Appreciate orthopedics input.
Orthostatic hypotension -continue teds, midodrine. Midodrine increased to 10 mg 3 times daily on 05/13 evening.
Now asymptomatic. Required IV fluid bolus initially during hospitalization and maintenance fluid later
Acute on chronic anemia, acute blood loss anemia -likely secondary to acute blood loss from surgery, intramuscular hematoma adjacent to the fracture and subcutaneous hematoma as noted on CT.
Hemoglobin stable at 8.9 today. Monitor closely.
Transfused 1 unit of blood on 05/12.
Stool heme check negative.
Low normal vitamin B12 level, continue repletion orally.
Iron panel not entirely consistent with iron deficiency anemia.
Pancytopenia -present on admission, unclear etiology. Platelet count has now recovered.
8.4 cm liver mass -indeterminate etiology and noted on CT scan. Will need MRI but cannot do at this point in time given recent gamma nailing of hip. Spoke with orthopedics (Dr. Vasquez), will need to wait 3 months before MRI can be safely done.
Discussed these findings with patient in detail, all questions answered. Informed patient that the mass etiology is unclear, could be benign versus malignant. Patient can follow-up with GI outpatient to decide MRI or CT scan
In addition, 2.5 cm low-attenuation region in the head of the pancreas noted on CT, MRI in the future can clarify this as well.
Hyponatremia
Monitor
Paroxysmal atrial fibrillation -anticoagulation resumed 05/14. INR 2.5 today, IV heparin discontinued. Continue warfarin at 4mg
According to family, at home patient takes warfarin 2.5 mg on Saturday, Saturday, Saturday. 5 mg all other days.
Acute left popliteal DVT -nonocclusive, noted on ultrasound dated 05/08/2025. Interestingly, repeat Doppler ultrasound 05/14 shows no evidence of DVT. Patient has no signs or symptoms of pulmonary embolism.
Continue warfarin. Monitor closely for any bleeding.
History of left carotid stenosis status post left CEA
CHFrEF -appears euvolemic.
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
CAD -stable.
aspirin 81
VAISHALI on CKD 3A -VAISHALI present on admission. Initial creatinine 1.9. Possibly due to volume depletion, prerenal azotemia noted.
Now renal function appears at baseline. Creatinine stable at 1.4.
Monitor
Hyperlipidemia
DM 2 without hyperglycemia -hemoglobin A1c 6.6% in February. Glucose 136 this morning. At home he is on pioglitazone 15 mg daily, metformin 500 mg daily.
Currently on low resistance aspart scale.
Probably should discontinue further metformin use given CKD.
DVT prophylaxis -Coumadin
Full code
Dispo -needs SNF, discussed with case management
Anticipated Discharge: Today
Subjective/Interval History
-
Date of Service: May 18, 2025
Denies dizziness
Objective Data
-
Labs:
Laboratory Results
05/18/25
05:26
WBC 3.4 L
Hgb 8.9 L
Hct 27.6 L
Plt Count 233
PT 27.5 H
INR 2.54
Sodium 135
Potassium 4.2
Chloride 104
Carbon Dioxide 29
BUN 29 H
Creatinine 1.4 H
Glucose 126 H
Calcium 8.7
Vital Signs:
Vital Signs
Temp Pulse Resp BP Pulse Ox
97.6 F 81 17 118/58 99
05/18/25 08:04 05/18/25 09:38 05/18/25 08:04 05/18/25 09:38 05/18/25 08:04
I&O
05/17/25 05/18/25 05/19/25
06:59 06:59 06:59
Intake Total 840 / 840 2560 / 2560
Output Total 1860 / 1860 1700 / 1700 725 / 725
Balance -1020 / -1020 860 / 860 -725 / -725
--- NOTE | 2025-05-18 11:29 | W.DCSUMMARY ---
Discharge Summary
Discharge Data
Date of Admission: 05/06/25
Date of Discharge: 05/18/25
-
Pending Results: No
Hospital Course
80-year-old male with past medical history of paroxysmal atrial fibrillation on Coumadin, history of DVT, left carotid stenosis status post left CEA, CHF, CAD, CKD, hyperlipidemia, diabetes mellitus, anemia came to the hospital after a fall with
acute traumatic left hip fracture. Patient was seen by orthopedics and underwent surgery for his fracture. Postop patient hospital course was complicated with acute on chronic anemia secondary to acute blood loss from surgery, intramuscular
hematoma adjacent to the fracture. Patient required blood transfusion on this hospitalization. Prior to discharge his hemoglobin continue to improve. Patient also had orthostatic hypotension where he was recommended teds and midodrine. On
discharge he was asymptomatic from orthostasis. While patient was in the hospital he was also found to have 8.4 cm liver mass and 2.5 cm low-attenuation region in the head of the pancreas. Patient was then seen by gastroenterology who recommended
MRI for pancreas which was not able to be obtained due to recent surgery per orthopedics. Gastroenterology also recommended triple phase CT scan to evaluate for liver mass outpatient. He also had acute kidney injury which continue to improve over
time. Patient was seen by physical therapy who recommended SNF. Once his symptoms continue to improve, he was then discharged to rehab with instructions to follow-up closely with all his physicians outpatient.
Discharge Plan
-
Patient Disposition: Usp/SNF
Discharge Diagnosis/Procedures: Acute traumatic left Hip fracture -secondary to mechanical fall and osteoporosis
Orthostatic hypotension
Acute on chronic anemia
Acute blood loss anemia
Intramuscular hematoma adjacent to the fracture
Pancytopenia
8.4 cm liver mass
2.5 cm low-attenuation region in the head of the pancreas
Hyponatremia
Paroxysmal atrial fibrillation
Diet: Low Cholesterol
Activity: As tolerated and With Walker
Driving Restrictions: No driving
Bathing Restrictions: OK to Shower
Blood Work: INR at rehab
Wound Care: maintain dressing until 10-14 days from date of surgery. Early/sutures out at 2 weeks from DOS
Activity Restrictions/Additional Instructions:
triple phase CT liver protocol with GI
Also need MRI to evaluate for pancreatic head lesion once cleared from orthopedics given recent surgery
Instructions: Hip fracture in adults (DC)
Referrals:
Redd Mathew MD [Active, Cardiology]
Ezio Giron MD [Active, Gastroenterology] - in two to four weeks
Referral Note: please follow up for the liver lesion
Madi Hanks MD [Family Provider, Family Practice] - in less than 1 week
Bayron Ferrer MD [Active, Orthopedics]
Referral Note: follow-up 2 weeks from date of surgery if discharged home- if discharged to SNF/ARF, obdulio can be removed there, and then outpatient follow-up 4 weeks from DOS with x-rays to be done (mobile if cannot transfer to xray table)
Prescriptions:
New
acetaminophen 325 mg Tablet
650 mg PO Q4HWA Qty: 0 0RF
polyethylene glycol 3350 17 gram Powder In Packet
17 g PO DAILY Qty: 0 0RF
midodrine 5 mg Tablet
10 mg PO TID@0800,1300,1800 Qty: 0 0RF
pantoprazole 40 mg Tablet,Delayed Release (Dr/Ec)
40 mg PO BID Qty: 0 0RF
docusate sodium 100 mg Capsule
100 mg PO BID Qty: 0 0RF
dorzolamide 2 % Drops
1 drp ophthalmic (eye) HS Qty: 0 0RF
prednisolone acetate 1 % Drops,Suspension
1 drp ophthalmic (eye) BID Qty: 0 0RF
cyanocobalamin (vitamin B-12) 500 mcg Tablet
1,000 mcg PO DAILY Qty: 0 0RF
warfarin [Jantoven] 4 mg Tablet
4 mg PO QPM Qty: 0 0RF
oxycodone 5 mg Tablet
5 mg PO Q4HPRN PRN (Reason: moderate to severe pain) Qty: 10 0RF
Continued
metoprolol succinate 50 MG tablet extended release 24 hr
50 mg PO HS
atorvastatin [Lipitor] 40 MG tablet
40 mg PO HS
torsemide 20 mg Tablet
20 mg PO DAILY PRN (Reason: Fluid retention/Swelling)
aspirin 81 mg Tablet,Delayed Release (Dr/Ec)
81 mg PO DAILY
metformin 500 mg Tablet
500 mg PO DAILY
Patient Comments:
Takes a combination pill Glucophage/Actos
Rx Instructions:
Pt reports he Takes a Combination Glucophage/ Actos at bedtime each night
pioglitazone [Actos] 15 mg Tablet
15 mg PO DAILY
Rx Instructions:
Pt takes as a Combination pill glucophage/Actos at HS
Discontinued
warfarin [Jantoven] 5 MG tablet
See Rx Instructions .ROUTE .COMPLEX MDD 5
Patient Comments:
HS
Rx Instructions:
5 mg orally ;5mg taken Sun/Mon/Thur/Sat
warfarin 2.5 mg Tablet
See Rx Instructions .ROUTE .COMPLEX MDD 5
Patient Comments:
Pt takes 2.5mg //Sat
Rx Instructions:
2.5 mg orally ;Take on Saturday/Saturday/Saturday
Discharge Orders:
Discharge Patient (As Directed); Ordered 05/18/25
Ordered By: Nato Epps
Discharge Date and Time
Discharge Date/Time: 05/18/25 13:40
Print Language: [place]
[2025-05-18 11:31] LABS: Glucose - Point of Care 278 mg/dl (70-99)
[2025-05-18] MEDS: NOVOLOG FLEXPEN-LOW RESISTANCE 3 UNITS SC (12:19)
[2025-05-18] MEDS: FLUZONE HIGH-DOSE 2025-26 0.5 ML IM (12:19)
[2025-05-18 13:05] VITALS: BP 125/61
== END 2025-05-18 13:40 | DRG 481 ==
LOC: 2 SOUTH 22:25
PROVIDERS: Hospitalist; Nurse Practitioner Family; ADMITTING PHYSICIAN Internal Medicine; ATTENDING PHYSICIAN Internal Medicine; CONSULT PHYSICIAN Internal Medicine Gastroenterology; CONSULT PHYSICIAN Orthopaedic Surgery Hand Surgery; EMERGENCY PHYSICIAN Emergency Medicine; FAMILY PHYSICIAN Family Medicine
PROC: 0QS706Z Reposition Left Upper Femur with Intramedullary Internal Fixation Device, Open Approach (ICD-10-PCS; 2025-05-07)
PROC: 30233N1 Transfusion of Nonautologous Red Blood Cells into Peripheral Vein, Percutaneous Approach (ICD-10-PCS; 2025-05-12)
PROC: 3E02340 Introduction of Influenza Vaccine into Muscle, Percutaneous Approach (ICD-10-PCS; 2025-05-18)
DX: M80.052A Age-related osteoporosis with current pathological fracture, left femur, initial encounter for fracture (principal); D61.818 Other pancytopenia; E87.1 Hypo-osmolality and hyponatremia; N17.9 Acute kidney failure, unspecified; D62 Acute posthemorrhagic anemia; I13.0 Hypertensive heart and chronic kidney disease with heart failure and stage 1 through stage 4 chronic kidney disease, or unspecified chronic kidney disease; I50.22 Chronic systolic (congestive) heart failure; S72.142A Displaced intertrochanteric fracture of left femur, initial encounter for closed fracture; W10.9XXA Fall (on) (from) unspecified stairs and steps, initial encounter; I48.0 Paroxysmal atrial fibrillation; I25.10 Atherosclerotic heart disease of native coronary artery without angina pectoris; Z95.1 Presence of aortocoronary bypass graft; I95.1 Orthostatic hypotension; N18.31 Chronic kidney disease, stage 3a; R16.0 Hepatomegaly, not elsewhere classified; Z23 Encounter for immunization; D63.1 Anemia in chronic kidney disease; Z79.01 Long term (current) use of anticoagulants; Z79.82 Long term (current) use of aspirin; Z79.899 Other long term (current) drug therapy
CPT/HCPCS: 72170; 73502; 73552; 74176; 76000; 80048; 80053; 80076; 81003; 81015; 82607; 82728; 82746; 82962; 83540; 83550; 83690; 84466; 85014; 85018; 85025; 85027; 85610; 85730; 86850; 86900; 86901; 86920; 90662; 93005; 93971; 97110; 97116; 97163; 97167; 97530; 97535; 99284; C1713; G0008; J2916; P9016

== ENCOUNTER → 2025-05-21 10:30 | Outpatient (REF) | payer OTHER, MEDICARE, BC, SELFPAY ==
[2025-05-21 11:33] LABS: Hematocrit 27.0 % (39.0-52.0); Hemoglobin 8.5 g/dL (13.0-18.0); Mean Corp Hgb Conc. 31.5 g/dL (33.0-37.0); Mean Corpuscular Volume 102.3 fL (80.0-94.0); Platelet Count 264 10^3/uL (130-400); Red Cell Dist. Width 17.8 % (11.5-14.5)
[2025-05-21 11:49] LABS: Blood Urea Nitrogen 33 mg/dl (9-20); Calcium 8.7 mg/dl (8.4-10.2); Carbon Dioxide 29 mmol/L (22-30); Chloride 103 mmol/L (98-107); Glucose 114 mg/dl (70-99); Potassium 4.5 mmol/L (3.5-5.1); Sodium 132 mmol/L (135-145); eGFR 47.36
[2025-05-21 12:00] LABS: INR 2.81; PT 29.8 Sec (11.4-14.6)
== END ==
LOC: OLABP 10:30
PROVIDERS: ATTENDING PHYSICIAN Family Medicine
DX: S72.002D Fracture of unspecified part of neck of left femur, subsequent encounter for closed fracture with routine healing (principal); D61.818 Other pancytopenia; I13.0 Hypertensive heart and chronic kidney disease with heart failure and stage 1 through stage 4 chronic kidney disease, or unspecified chronic kidney disease; I25.10 Atherosclerotic heart disease of native coronary artery without angina pectoris; I48.0 Paroxysmal atrial fibrillation; I51.9 Heart disease, unspecified; D68.69 Other thrombophilia; D64.9 Anemia, unspecified; I10 Essential (primary) hypertension; N40.0 Benign prostatic hyperplasia without lower urinary tract symptoms; M80.052D Age-related osteoporosis with current pathological fracture, left femur, subsequent encounter for fracture with routine healing
CPT/HCPCS: 36415; 80048; 85027; 85610

== ENCOUNTER → 2025-05-25 12:42 | Outpatient (REF) | payer OTHER, MEDICARE, BC, SELFPAY ==
[2025-05-25 13:09] LABS: Hematocrit 32.1 % (39.0-52.0); Hemoglobin 10.0 g/dL (13.0-18.0); Mean Corp Hgb Conc. 31.2 g/dL (33.0-37.0); Mean Corpuscular Volume 102.9 fL (80.0-94.0); Nucleated Red Blood Cells % 0 % (-); Platelet Count 296 10^3/uL (130-400); Red Cell Dist. Width 17.1 % (11.5-14.5)
[2025-05-25 13:11] LABS: INR 2.72; PT 29.1 Sec (11.4-14.6)
[2025-05-25 15:59] LABS: Blood Urea Nitrogen 31 mg/dl (9-20); Calcium 9.4 mg/dl (8.4-10.2); Carbon Dioxide 26 mmol/L (22-30); Chloride 106 mmol/L (98-107); Glucose 116 mg/dl (70-99); Potassium 4.9 mmol/L (3.5-5.1); Sodium 135 mmol/L (135-145); eGFR 40.75
== END ==
LOC: OLABP 12:42
PROVIDERS: ATTENDING PHYSICIAN Family Medicine
DX: I10 Essential (primary) hypertension (principal); N40.0 Benign prostatic hyperplasia without lower urinary tract symptoms; I13.0 Hypertensive heart and chronic kidney disease with heart failure and stage 1 through stage 4 chronic kidney disease, or unspecified chronic kidney disease; I25.10 Atherosclerotic heart disease of native coronary artery without angina pectoris
CPT/HCPCS: 36415; 80048; 85025; 85610

== ENCOUNTER → 2025-05-27 09:32 | Outpatient (REF) | payer OTHER, MEDICARE, BC, SELFPAY ==
[2025-05-27 11:22] LABS: INR 3.34; PT 33.3 Sec (11.4-14.6)
== END ==
LOC: OLABP 09:32
PROVIDERS: ATTENDING PHYSICIAN Family Medicine
DX: I13.0 Hypertensive heart and chronic kidney disease with heart failure and stage 1 through stage 4 chronic kidney disease, or unspecified chronic kidney disease (principal); I25.10 Atherosclerotic heart disease of native coronary artery without angina pectoris; D64.9 Anemia, unspecified; I73.9 Peripheral vascular disease, unspecified; D68.69 Other thrombophilia; E11.3493 Type 2 diabetes mellitus with severe nonproliferative diabetic retinopathy without macular edema, bilateral; E78.5 Hyperlipidemia, unspecified; I10 Essential (primary) hypertension
CPT/HCPCS: 36415; 85610

== ENCOUNTER → 2025-05-28 10:14 | Outpatient (REF) | payer OTHER, MEDICARE, BC, SELFPAY ==
[2025-05-28 11:20] LABS: INR 3.08; PT 32.0 Sec (11.4-14.6)
== END ==
LOC: OLABP 10:14
PROVIDERS: ATTENDING PHYSICIAN Family Medicine
DX: I10 Essential (primary) hypertension (principal); H40.50 Glaucoma secondary to other eye disorders, unspecified eye; N40.0 Benign prostatic hyperplasia without lower urinary tract symptoms; M80.052D Age-related osteoporosis with current pathological fracture, left femur, subsequent encounter for fracture with routine healing; I21.3 ST elevation (STEMI) myocardial infarction of unspecified site
CPT/HCPCS: 36415; 85610

== ENCOUNTER → 2025-05-29 11:58 | Outpatient (REF) | payer OTHER, MEDICARE, BC, SELFPAY ==
[2025-05-29 12:27] LABS: INR 3.06; PT 31.9 Sec (11.4-14.6)
== END ==
LOC: OLABP 11:58
PROVIDERS: ATTENDING PHYSICIAN Family Medicine
DX: S72.002D Fracture of unspecified part of neck of left femur, subsequent encounter for closed fracture with routine healing (principal); D61.818 Other pancytopenia; D64.9 Anemia, unspecified; D68.69 Other thrombophilia; E11.3493 Type 2 diabetes mellitus with severe nonproliferative diabetic retinopathy without macular edema, bilateral; E78.5 Hyperlipidemia, unspecified; I10 Essential (primary) hypertension; I13.0 Hypertensive heart and chronic kidney disease with heart failure and stage 1 through stage 4 chronic kidney disease, or unspecified chronic kidney disease; I25.10 Atherosclerotic heart disease of native coronary artery without angina pectoris; I48.0 Paroxysmal atrial fibrillation; I51.9 Heart disease, unspecified; I73.9 Peripheral vascular disease, unspecified; I82.432 Acute embolism and thrombosis of left popliteal vein; N18.32 Chronic kidney disease, stage 3b; N40.0 Benign prostatic hyperplasia without lower urinary tract symptoms
CPT/HCPCS: 36415; 85610

== ENCOUNTER → 2025-06-01 09:11 | Outpatient (REF) | payer OTHER, MEDICARE, BC, SELFPAY ==
[2025-06-01 11:25] LABS: INR 1.88; PT 21.8 Sec (11.4-14.6)
== END ==
LOC: OLABP 09:11
PROVIDERS: ATTENDING PHYSICIAN Family Medicine
DX: I10 Essential (primary) hypertension (principal); I13.0 Hypertensive heart and chronic kidney disease with heart failure and stage 1 through stage 4 chronic kidney disease, or unspecified chronic kidney disease; I25.10 Atherosclerotic heart disease of native coronary artery without angina pectoris; I48.0 Paroxysmal atrial fibrillation; I51.9 Heart disease, unspecified; I73.9 Peripheral vascular disease, unspecified; I82.432 Acute embolism and thrombosis of left popliteal vein; M80.052D Age-related osteoporosis with current pathological fracture, left femur, subsequent encounter for fracture with routine healing; N18.32 Chronic kidney disease, stage 3b; N40.0 Benign prostatic hyperplasia without lower urinary tract symptoms; S72.002D Fracture of unspecified part of neck of left femur, subsequent encounter for closed fracture with routine healing; D61.818 Other pancytopenia; D64.9 Anemia, unspecified; W19.XXXD Unspecified fall, subsequent encounter; D68.69 Other thrombophilia; E11.3493 Type 2 diabetes mellitus with severe nonproliferative diabetic retinopathy without macular edema, bilateral; E78.5 Hyperlipidemia, unspecified; H40.50 Glaucoma secondary to other eye disorders, unspecified eye
CPT/HCPCS: 36415; 85610

== ENCOUNTER → 2025-06-02 11:04 | Outpatient (REF) | payer OTHER, MEDICARE, BC, SELFPAY ==
[2025-06-02 11:34] LABS: INR 1.94; PT 21.8 Sec (11.4-14.6)
== END ==
LOC: OLABP 11:04
PROVIDERS: ATTENDING PHYSICIAN Family Medicine
DX: S72.002D Fracture of unspecified part of neck of left femur, subsequent encounter for closed fracture with routine healing (principal); D61.818 Other pancytopenia; D64.9 Anemia, unspecified; D68.69 Other thrombophilia; E11.3493 Type 2 diabetes mellitus with severe nonproliferative diabetic retinopathy without macular edema, bilateral; E78.5 Hyperlipidemia, unspecified; H40.50 Glaucoma secondary to other eye disorders, unspecified eye; I10 Essential (primary) hypertension; I13.0 Hypertensive heart and chronic kidney disease with heart failure and stage 1 through stage 4 chronic kidney disease, or unspecified chronic kidney disease; I25.10 Atherosclerotic heart disease of native coronary artery without angina pectoris; I48.0 Paroxysmal atrial fibrillation; I73.9 Peripheral vascular disease, unspecified; I82.432 Acute embolism and thrombosis of left popliteal vein; M80.052D Age-related osteoporosis with current pathological fracture, left femur, subsequent encounter for fracture with routine healing; N18.32 Chronic kidney disease, stage 3b; N40.0 Benign prostatic hyperplasia without lower urinary tract symptoms
CPT/HCPCS: 36415; 85610

== ENCOUNTER → 2025-06-03 11:12 | Outpatient (REF) | payer OTHER, MEDICARE, BC, SELFPAY ==
[2025-06-03 11:38] LABS: INR 2.28; PT 24.8 Sec (11.4-14.6)
== END ==
LOC: OLABP 11:12
PROVIDERS: ATTENDING PHYSICIAN Family Medicine
DX: S72.002D Fracture of unspecified part of neck of left femur, subsequent encounter for closed fracture with routine healing (principal); D61.818 Other pancytopenia; D64.9 Anemia, unspecified; W19.XXXD Unspecified fall, subsequent encounter; D68.69 Other thrombophilia; E11.3493 Type 2 diabetes mellitus with severe nonproliferative diabetic retinopathy without macular edema, bilateral; E78.5 Hyperlipidemia, unspecified; H40.50 Glaucoma secondary to other eye disorders, unspecified eye; I10 Essential (primary) hypertension; I13.0 Hypertensive heart and chronic kidney disease with heart failure and stage 1 through stage 4 chronic kidney disease, or unspecified chronic kidney disease; I25.10 Atherosclerotic heart disease of native coronary artery without angina pectoris; I48.0 Paroxysmal atrial fibrillation; I51.9 Heart disease, unspecified; I73.9 Peripheral vascular disease, unspecified; I82.432 Acute embolism and thrombosis of left popliteal vein; M80.052D Age-related osteoporosis with current pathological fracture, left femur, subsequent encounter for fracture with routine healing; N18.32 Chronic kidney disease, stage 3b; N40.0 Benign prostatic hyperplasia without lower urinary tract symptoms
CPT/HCPCS: 36415; 85610

== ENCOUNTER → 2025-06-04 11:31 | Outpatient (REF) | payer OTHER, MEDICARE, BC, SELFPAY ==
[2025-06-04 12:28] LABS: INR 2.43; PT 26.6 Sec (11.4-14.6)
== END ==
LOC: OLABP 11:31
PROVIDERS: ATTENDING PHYSICIAN Family Medicine
DX: I10 Essential (primary) hypertension (principal); N40.0 Benign prostatic hyperplasia without lower urinary tract symptoms; I13.0 Hypertensive heart and chronic kidney disease with heart failure and stage 1 through stage 4 chronic kidney disease, or unspecified chronic kidney disease; S72.002D Fracture of unspecified part of neck of left femur, subsequent encounter for closed fracture with routine healing; D64.9 Anemia, unspecified; I51.9 Heart disease, unspecified; I73.9 Peripheral vascular disease, unspecified; D68.69 Other thrombophilia; I21.3 ST elevation (STEMI) myocardial infarction of unspecified site
CPT/HCPCS: 36415; 85610

== ENCOUNTER → 2025-06-07 09:32 | Outpatient (REF) | payer OTHER, MEDICARE, BC, SELFPAY ==
[2025-06-07 10:55] LABS: INR 2.07; PT 23.5 Sec (11.4-14.6)
== END ==
LOC: OLABP 09:32
PROVIDERS: ATTENDING PHYSICIAN Family Medicine
DX: S72.002D Fracture of unspecified part of neck of left femur, subsequent encounter for closed fracture with routine healing (principal); D61.818 Other pancytopenia; D64.9 Anemia, unspecified; W19.XXXD Unspecified fall, subsequent encounter; D68.69 Other thrombophilia; E11.3493 Type 2 diabetes mellitus with severe nonproliferative diabetic retinopathy without macular edema, bilateral; E78.5 Hyperlipidemia, unspecified; H40.50 Glaucoma secondary to other eye disorders, unspecified eye; I10 Essential (primary) hypertension; I13.0 Hypertensive heart and chronic kidney disease with heart failure and stage 1 through stage 4 chronic kidney disease, or unspecified chronic kidney disease; I25.10 Atherosclerotic heart disease of native coronary artery without angina pectoris; I48.0 Paroxysmal atrial fibrillation; I51.9 Heart disease, unspecified; I73.9 Peripheral vascular disease, unspecified; I82.432 Acute embolism and thrombosis of left popliteal vein; M80.052D Age-related osteoporosis with current pathological fracture, left femur, subsequent encounter for fracture with routine healing; N18.32 Chronic kidney disease, stage 3b; N40.0 Benign prostatic hyperplasia without lower urinary tract symptoms
CPT/HCPCS: 36415; 85610

== ENCOUNTER → 2025-06-08 09:13 | Outpatient (REF) | payer OTHER, MEDICARE, BC, SELFPAY ==
[2025-06-08 11:09] LABS: INR 1.94; PT 22.3 Sec (11.4-14.6)
== END ==
LOC: OLABP 09:13
PROVIDERS: ATTENDING PHYSICIAN Family Medicine
DX: S72.002D Fracture of unspecified part of neck of left femur, subsequent encounter for closed fracture with routine healing (principal); D61.818 Other pancytopenia; D64.9 Anemia, unspecified; W19.XXXD Unspecified fall, subsequent encounter; D68.69 Other thrombophilia; E11.3493 Type 2 diabetes mellitus with severe nonproliferative diabetic retinopathy without macular edema, bilateral; E78.5 Hyperlipidemia, unspecified; H40.50 Glaucoma secondary to other eye disorders, unspecified eye; I10 Essential (primary) hypertension; I13.0 Hypertensive heart and chronic kidney disease with heart failure and stage 1 through stage 4 chronic kidney disease, or unspecified chronic kidney disease; I25.10 Atherosclerotic heart disease of native coronary artery without angina pectoris; I48.0 Paroxysmal atrial fibrillation; I51.9 Heart disease, unspecified; I73.9 Peripheral vascular disease, unspecified; I82.432 Acute embolism and thrombosis of left popliteal vein; N40.0 Benign prostatic hyperplasia without lower urinary tract symptoms; N18.32 Chronic kidney disease, stage 3b
CPT/HCPCS: 36415; 85610